=== PATIENT | female | born 1975 | race African-American/Black ===

== ENCOUNTER 2017-01-04 01:52 | Inpatient (IN) | payer MEDICARE, MEDICAID ==
[~2017-01-04] VITALS: Ht 144.8 cm; Wt 97.5 kg
[~2017-01-04 01:52] MED LIST: ATEN100T PO; CLON0.1T PO; INSU3INS6 SUBCUT; LORA0.5T2 PO; MINO2.5T19 PO; SIMV20TA6 PO
[2017-01-04] MEDS ORDERED: ASPIRIN 81MG TABLET PO STA (04:24)
[2017-01-04] MEDS ORDERED: DIPHENHYDRAMINE 50MG/ML VIAL IV ONE ×2 (04:30→09:00)
[2017-01-04 05:23] LABS: BASOPHILS % 0.5 % (0.0-2.0); EOSINOPHILS % 2.5 % (0.0-5.0); HEMOGLOBIN. 10.7 g/dL (12.0-16.0); LYMPHOCYTES % 15.2 % (20.0-50.0); MEAN CORPUSCULAR HEMOGLOBIN 28.7 pg (28.0-32.0); MEAN CORPUSCULAR VOLUME 88.7 fL (81.0-99.0); MEAN PLATELET VOLUME 8.1 fl (7.4-10.4); MONOCYTES % 4.1 % (2.0-8.0); NEUTROPHILS % 77.7 % (40.0-76.0); PLATELET 333 x1000/uL (130-400); RED BLOOD CELL COUNT 3.72 mill/uL (4.2-5.4); RED CELL DISTRIBUTION WIDTH 15.8 % (11.6-14.6)
[2017-01-04 05:34] LABS: PARTIAL THROMBOPLASTIN TIME 27.5 sec (23.4-31.0); PROTHROMBIN TIME 10.1 sec (9.4-11.6)
[2017-01-04 05:38] LABS: CARBON DIOXIDE 26 mEq/L (21-32); CHLORIDE 97 mEq/L (98-107); TROPONIN I < 0.02 ng/mL (0.00-0.04)
[2017-01-04] MEDS ORDERED: MORPHINE SULFATE 4 MG/ML CPJ (NOT FOR IM USE) IV ONE (06:15)
[2017-01-04] MEDS ORDERED: ONDANSETRON HCL 4MG/2ML VIAL IV ONE (06:15)
[2017-01-04] MEDS ORDERED: MORPHINE SULFATE 2 MG/ML CPJ (NOT FOR IM USE) IV ONE (09:00)
[2017-01-04] MEDS ORDERED: DIPHENHYDRAMINE 50MG/ML VIAL IV NR (10:30)
[2017-01-04 14:30] VITALS: BP 154/90
[2017-01-04 16:06] VITALS: BP 154/90
[2017-01-04] MEDS: ATENOLOL 100 MG TABLET PO SCH (16:15)
[2017-01-04] MEDS ORDERED: LORAZEPAM 0.5MG TABLET PO PRN (16:15)
[2017-01-04] MEDS: CLONIDINE 0.1MG TABLET PO SCH ×2 (16:15→17:41)
[2017-01-04] MEDS ORDERED: ONDANSETRON HCL 4MG/2ML VIAL IV PRN (16:15)
[2017-01-04] MEDS: MINOXIDIL 2.5MG TABLET PO SCH (16:15)
[2017-01-04] MEDS: MORPHINE SULFATE 4 MG/ML CPJ (NOT FOR IM USE) IV PRN ×2 (16:35→21:30)
[2017-01-04] MEDS ORDERED: DEXTROSE 50% WATER 50ML SYRINGE IV PRN (17:45)
[2017-01-04] MEDS: ENOXAPARIN 40MG/0.4ML SYR SUBCUT SCH ×2 (17:54→17:58)
[2017-01-04] MEDS: INSULIN LISPRO 100 UNITS/ML SUBCUT SCH ×2 (17:55→21:21)
[2017-01-04 20:00] VITALS: BP 150/55
[2017-01-04] MEDS: BLOOD SUGAR DIAGNOSTIC STRIP TEST SCH (21:21)
[2017-01-04] MEDS ORDERED: INSULIN DETEMIR UD 100 UNITS/ML SYR SUBCUT SCH (22:00)
[2017-01-05] VITALS: BP 145/55
[2017-01-05] MEDS: MORPHINE SULFATE 4 MG/ML CPJ (NOT FOR IM USE) IV PRN ×3 (02:47→10:47)
[2017-01-05] MEDS ORDERED: DIPHENHYDRAMINE 50MG/ML VIAL IV NR (03:30)
[2017-01-05 04:00] VITALS: BP 209/83
[2017-01-05 06:00] VITALS: BP 116/59
[2017-01-05] MEDS: CLONIDINE 0.1MG TABLET PO SCH ×3 (06:00→12:58)
[2017-01-05] MEDS: BLOOD SUGAR DIAGNOSTIC STRIP TEST SCH ×2 (06:35→12:22)
[2017-01-05 07:42] VITALS: BP 159/54
[2017-01-05] MEDS: MINOXIDIL 2.5MG TABLET PO SCH (08:52)
[2017-01-05] MEDS: ATENOLOL 100 MG TABLET PO SCH (08:52)
[2017-01-05] MEDS: INSULIN LISPRO 100 UNITS/ML SUBCUT SCH ×2 (08:56→12:58)
[2017-01-05] MEDS ORDERED: DIPHENHYDRAMINE 50MG/ML VIAL IV SCH (10:30)
[2017-01-05 12:08] VITALS: BP 118/45
== END 2017-01-05 15:20 | disposition home or self-care (01) | DRG 291 ==
LOC: ER 01:52 → EDBEDREQ 05:20 → 6WST 06:06 → ENRESERV 12:13 → EDBEDREQ 13:51 → ER 14:38
PROVIDERS: ADMIT Family Medicine; ATTEND Family Medicine
PROC: 5A1D00Z (ICD-10-PCS; principal; 2017-01-04)
DX: I13.2 Hypertensive heart and chronic kidney disease with heart failure and with stage 5 chronic kidney disease, or end stage renal disease (principal); N18.6 End stage renal disease; E11.21 Type 2 diabetes mellitus with diabetic nephropathy; F11.20 Opioid dependence, uncomplicated; E11.22 Type 2 diabetes mellitus with diabetic chronic kidney disease; D63.8 Anemia in other chronic diseases classified elsewhere; D72.829 Elevated white blood cell count, unspecified; E11.40 Type 2 diabetes mellitus with diabetic neuropathy, unspecified; E11.51 Type 2 diabetes mellitus with diabetic peripheral angiopathy without gangrene; H54.0 Blindness, both eyes; I50.9 Heart failure, unspecified; J45.909 Unspecified asthma, uncomplicated; E11.319 Type 2 diabetes mellitus with unspecified diabetic retinopathy without macular edema; Z99.2 Dependence on renal dialysis; Z89.511 Acquired absence of right leg below knee; Z89.512 Acquired absence of left leg below knee; Z91.19 Patient's noncompliance with other medical treatment and regimen; Z88.2 Allergy status to sulfonamides; Z88.8 Allergy status to other drugs, medicaments and biological substances; Z88.1 Allergy status to other antibiotic agents; Z88.0 Allergy status to penicillin; Z91.013 Allergy to seafood; Z79.4 Long term (current) use of insulin; Z79.899 Other long term (current) drug therapy; Z83.3 Family history of diabetes mellitus; Z82.49 Family history of ischemic heart disease and other diseases of the circulatory system
CPT/HCPCS: 36415; 71010; 80048; 82962; 83880; 84484; 85025; 85610; 85730; 93005; 96374; 96375; 96376; 99285; J1200; J1650; J1815; J2270; J2405; J7030

== ENCOUNTER 2017-07-08 05:50 | Emergency (ER) | payer MEDICARE, MEDICAID ==
[~2017-07-08] VITALS: Ht 144.8 cm; Wt 98.0 kg
[2017-07-08] MEDS ORDERED: MORPHINE SULFATE 4 MG/ML CPJ (NOT FOR IM USE) IV ONE (06:45)
[2017-07-08 08:02] LABS: BASOPHILS % 0.6 % (0.0-2.0); EOSINOPHILS % 3.3 % (0.0-5.0); HEMATOCRIT. 30.2 % (36.0-48.0); HEMOGLOBIN. 9.9 g/dL (12.0-16.0); LYMPHOCYTES % 14.2 % (20.0-50.0); MEAN CORPUSCULAR HEMOGLOBIN 28.7 pg (28.0-32.0); MEAN CORPUSCULAR VOLUME 87.7 fL (81.0-99.0); MONOCYTES % 4.5 % (2.0-8.0); NEUTROPHILS % 77.4 % (40.0-76.0); PLATELET 431 x1000/uL (130-400); RED BLOOD CELL COUNT 3.45 mill/uL (4.2-5.4); RED CELL DISTRIBUTION WIDTH 14.8 % (11.6-14.6)
[2017-07-08 08:09] LABS: CHLORIDE 99 mEq/L (98-107); INR 1.1; PROTHROMBIN TIME 11.2 sec (9.4-11.6)
[2017-07-08] MEDS ORDERED: DIPHENHYDRAMINE 50MG/ML VIAL IV ONE (09:00)
[2017-07-08 10:28] VITALS: BP 134/91
== END 2017-07-08 10:52 | disposition home or self-care (01) ==
LOC: ER 05:50
DX: R53.1 Weakness (principal); R68.83 Chills (without fever); M25.561 Pain in right knee; M25.562 Pain in left knee; J45.909 Unspecified asthma, uncomplicated; I13.2 Hypertensive heart and chronic kidney disease with heart failure and with stage 5 chronic kidney disease, or end stage renal disease; E11.22 Type 2 diabetes mellitus with diabetic chronic kidney disease; I50.9 Heart failure, unspecified; N18.6 End stage renal disease; Z89.511 Acquired absence of right leg below knee; Z89.512 Acquired absence of left leg below knee; Z99.2 Dependence on renal dialysis; Z88.0 Allergy status to penicillin; Z88.2 Allergy status to sulfonamides; Z88.1 Allergy status to other antibiotic agents; Z88.6 Allergy status to analgesic agent; Z88.8 Allergy status to other drugs, medicaments and biological substances; Z79.4 Long term (current) use of insulin
CPT/HCPCS: 36415; 71045; 80053; 83605; 85025; 85610; 87040; 93005; 96374; 96375; 99285; J1200; J2270

== ENCOUNTER 2017-08-17 07:10 | Emergency (ER) | payer MEDICARE, MEDICAID ==
[~2017-08-17] VITALS: Ht 152.4 cm; Wt 97.0 kg
[2017-08-17 07:58] LABS: BASOPHILS % 0.4 % (0.0-2.0); EOSINOPHILS % 6.8 % (0.0-5.0); HEMATOCRIT. 33.6 % (36.0-48.0); LYMPHOCYTES % 7.7 % (20.0-50.0); MEAN CORPUSCULAR HEMOGLOBIN 29.6 pg (28.0-32.0); MEAN CORPUSCULAR VOLUME 90.6 fL (81.0-99.0); MEAN PLATELET VOLUME 7.3 fl (7.4-10.4); MONOCYTES % 7.5 % (2.0-8.0); NEUTROPHILS % 77.6 % (40.0-76.0); PLATELET 337 x1000/uL (130-400); RED CELL DISTRIBUTION WIDTH 15.8 % (11.6-14.6)
[2017-08-17 07:59] LABS: CHLORIDE 97 mEq/L (98-107)
[2017-08-17 08:00] LABS: INR 1.1; PROTHROMBIN TIME 11.1 sec (9.4-11.6)
[2017-08-17] MEDS ORDERED: MORPHINE SULFATE 4 MG/ML CPJ (NOT FOR IM USE) IV ONE ×2 (08:15→10:30)
[2017-08-17] MEDS ORDERED: DIPHENHYDRAMINE 50MG/ML VIAL IV ONE (09:00)
[2017-08-17 12:24] VITALS: BP 100/48
== END 2017-08-17 12:32 | disposition home or self-care (01) ==
LOC: ER 07:29
DX: B34.9 Viral infection, unspecified (principal); E11.22 Type 2 diabetes mellitus with diabetic chronic kidney disease; I12.0 Hypertensive chronic kidney disease with stage 5 chronic kidney disease or end stage renal disease; N18.6 End stage renal disease; R00.0 Tachycardia, unspecified; Z99.2 Dependence on renal dialysis; Z88.6 Allergy status to analgesic agent; Z88.0 Allergy status to penicillin; Z88.2 Allergy status to sulfonamides; Z90.710 Acquired absence of both cervix and uterus; Z79.4 Long term (current) use of insulin; Z88.1 Allergy status to other antibiotic agents
CPT/HCPCS: 36415; 71045; 80053; 85025; 85610; 93005; 96374; 96375; 96376; 99285; J1200; J2270

== ENCOUNTER 2017-10-07 06:26 | Inpatient (IN) | payer MEDICARE, MEDICAID ==
[~2017-10-07] VITALS: Ht 149.9 cm; Wt 104.1 kg
[~2017-10-07 06:26] MED LIST changes: -ATEN100T PO; +CALC667T2 PO; +DIPH25CA83 PO; +FOLI0.8T23 PO; +HYDR4TAB4 PO; +INSLIS SUBCUT; +LANTUSUD SUBCUT; -LORA0.5T2 PO; +METO-396 PO; -MINO2.5T19 PO; -SIMV20TA6 PO
[2017-10-07] MEDS ORDERED: MORPHINE SULFATE 4 MG/ML CPJ (NOT FOR IM USE) IV STA (06:47)
[2017-10-07] MEDS ORDERED: ONDANSETRON HCL 4MG/2ML VIAL IV STA (06:47)
[2017-10-07] MEDS ORDERED: ASPIRIN 81MG TABLET PO ONE (07:00)
[2017-10-07 07:21] LABS: BASOPHILS % 0.4 % (0.0-2.0); EOSINOPHILS % 2.8 % (0.0-5.0); HEMATOCRIT. 29.6 % (36.0-48.0); HEMOGLOBIN. 9.7 g/dL (12.0-16.0); LYMPHOCYTES % 12.9 % (20.0-50.0); MEAN CORPUSCULAR HEMOGLOBIN 30.3 pg (28.0-32.0); MEAN CORPUSCULAR VOLUME 92.5 fL (81.0-99.0); MEAN PLATELET VOLUME 7.4 fl (7.4-10.4); MONOCYTES % 3.9 % (2.0-8.0); PLATELET 375 x1000/uL (130-400); RED CELL DISTRIBUTION WIDTH 16.6 % (11.6-14.6)
[2017-10-07 07:27] LABS: CHLORIDE 101 mEq/L (98-107)
[2017-10-07 07:30] LABS: PROTHROMBIN TIME 10.4 sec (9.4-11.6)
[2017-10-07] MEDS ORDERED: DIPHENHYDRAMINE 50MG CAPSULE PO ONE (08:00)
[2017-10-07] MEDS ORDERED: SODIUM BICARBONATE 8.4% 1 MEQ/ML 50ML SYR IV ONE (08:00)
[2017-10-07] MEDS ORDERED: INSULIN REGULAR (HUMULIN R) 300UNITS/3ML IV ONE (08:00)
[2017-10-07] MEDS ORDERED: DEXTROSE 50% WATER 50ML SYRINGE IV ONE (08:00)
[2017-10-07] MEDS ORDERED: CLONIDINE 0.1MG TABLET PO PRN (09:15)
[2017-10-07] MEDS ORDERED: GUAIFENESIN 200MG/10ML SUGAR FREE UDC PO PRN (09:15)
[2017-10-07] MEDS ORDERED: DOCUSATE SODIUM 100MG CAPSULE PO PRN (09:15)
[2017-10-07] MEDS ORDERED: MAGNESIUM/ALUMINUM HYDROXIDE/SIMETHICONE 30ML UDC PO PRN (09:15)
[2017-10-07] MEDS ORDERED: NA PHOS,M-B/NA PHOS,DI-BA ENEMA 118ML PR PRN (09:15)
[2017-10-07] MEDS ORDERED: LORAZEPAM 2MG/ML CPJ IV PRN (09:15)
[2017-10-07] MEDS ORDERED: IPRATROPIUM/ALBUTEROL 0.5-3(2.5)MG/3ML NEB INH PRN (09:15)
[2017-10-07 10:45] VITALS: BP 156/77
[2017-10-07 11:05] VITALS: BP 156/77
[2017-10-07] MEDS: ENOXAPARIN 40MG/0.4ML SYR SUBCUT SCH (11:30)
[2017-10-07 12:00] VITALS: BP 142/82
[2017-10-07] MEDS ORDERED: DEXTROSE 50% WATER 50ML SYRINGE IV PRN (12:30)
[2017-10-07] MEDS: HYDROMORPHONE HCL/PF 2MG/ML CPJ IV PRN ×2 (12:41→20:36)
[2017-10-07] MEDS: BLOOD SUGAR DIAGNOSTIC STRIP TEST SCH ×3 (13:11→21:41)
[2017-10-07] MEDS: INSULIN LISPRO 100 UNITS/ML SUBCUT SCH ×3 (13:42→21:33)
[2017-10-07] MEDS: LOSARTAN POTASSIUM 25 MG TABLET PO SCH (14:15)
[2017-10-07] MEDS ORDERED: DIPHENHYDRAMINE 25MG CAPSULE PO PRN (14:30)
[2017-10-07 16:00] VITALS: BP 121/39
[2017-10-07] MEDS: DIPHENHYDRAMINE 50MG/ML VIAL IV PRN ×2 (17:49→21:39)
[2017-10-07 20:00] VITALS: BP 151/86
[2017-10-07] MEDS: EPOETIN ALFA 10000UNITS/ML VIAL SUBCUT SCH (20:36)
[2017-10-07] MEDS: AMLODIPINE 5MG TABLET PO SCH (20:37)
[2017-10-07] MEDS: ATORVASTATIN CALCIUM 40MG TABLET PO SCH (20:58)
[2017-10-08] VITALS (28 sets, daily range): BP systolic 110–202; BP diastolic 52–118
[2017-10-08] MEDS: HYDROMORPHONE HCL/PF 2MG/ML CPJ IV PRN ×5 (01:37→22:05)
[2017-10-08] MEDS: DIPHENHYDRAMINE 50MG/ML VIAL IV PRN ×4 (03:28→23:42)
[2017-10-08] MEDS: ONDANSETRON HCL 4MG/2ML VIAL IV PRN ×3 (03:31→22:04)
[2017-10-08] MEDS: BLOOD SUGAR DIAGNOSTIC STRIP TEST SCH ×4 (05:53→21:00)
[2017-10-08] MEDS: INSULIN LISPRO 100 UNITS/ML SUBCUT SCH ×4 (05:53→22:05)
[2017-10-08 07:10] LABS: EOSINOPHILS % 4.4 % (0.0-5.0); HEMATOCRIT. 30.6 % (36.0-48.0); HEMOGLOBIN. 9.7 g/dL (12.0-16.0); LYMPHOCYTES % 13.7 % (20.0-50.0); MEAN CORPUSCULAR HEMOGLOBIN 29.5 pg (28.0-32.0); MEAN CORPUSCULAR VOLUME 92.8 fL (81.0-99.0); MEAN PLATELET VOLUME 7.9 fl (7.4-10.4); MONOCYTES % 6.4 % (2.0-8.0); NEUTROPHILS % 74.5 % (40.0-76.0); PLATELET 387 x1000/uL (130-400); RED CELL DISTRIBUTION WIDTH 16.7 % (11.6-14.6)
[2017-10-08 07:46] LABS: CHLORIDE 100 mEq/L (98-107)
[2017-10-08 07:53] LABS: LDL CHOLESTEROL 135 mg/dL (5-100)
[2017-10-08 07:55] LABS: HDL CHOLESTEROL 46 mg/dL (40-59); T4 FREE 0.77 ng/dL (0.76-1.46)
[2017-10-08] MEDS: LOSARTAN POTASSIUM 25 MG TABLET PO SCH (09:00)
[2017-10-08] MEDS: ENOXAPARIN 40MG/0.4ML SYR SUBCUT SCH (09:00)
[2017-10-08] MEDS: AMLODIPINE 5MG TABLET PO SCH ×2 (09:00→21:00)
[2017-10-08] MEDS ORDERED: SODIUM BICARBONATE 8.4% 1 MEQ/ML 50ML SYR IV NR (09:30)
[2017-10-08] MEDS ORDERED: INSULIN REGULAR (HUMULIN R) UD 100 UNITS/ML SYR IV NR (09:30)
[2017-10-08] MEDS ORDERED: DEXTROSE 50% WATER 50ML SYRINGE IV NR (09:30)
[2017-10-08] MEDS: ASPIRIN 81MG EC TABLET PO SCH (09:37)
[2017-10-08] MEDS ORDERED: SODIUM BICARBONATE 4% (2.4MEQ) 5ML VIAL IV ONE ×3 (10:04→12:47)
[2017-10-08] MEDS ORDERED: HEPARIN 1000 UNITS/ML 10ML ONE ×2 (10:04→12:47)
[2017-10-08] MEDS ORDERED: LIDOCAINE HCL/PF 1% 10 MG/ML 5ML VIAL ONE ×4 (10:04→12:47)
[2017-10-08] MEDS ORDERED: CLINDAMYCIN 600MG PREMIX 50 ML IV NR (11:40)
[2017-10-08] MEDS ORDERED: FENTANYL CITRATE/PF 50MCG/ML 2ML VIAL ONE (11:46)
[2017-10-08] MEDS ORDERED: FENTANYL CITRATE/PF 50MCG/ML 2ML VIAL IV ONE ×3 (12:00→13:30)
[2017-10-08] MEDS ORDERED: DIPHENHYDRAMINE 50MG/ML VIAL ONE (12:10)
[2017-10-08] MEDS ORDERED: DIPHENHYDRAMINE 50MG/ML VIAL IV NR (12:11)
[2017-10-08 16:29] LABS: INR 1.1; PARTIAL THROMBOPLASTIN TIME 39.5 sec (23.4-31.0); PROTHROMBIN TIME 11.4 sec (9.4-11.6)
[2017-10-08] MEDS ORDERED: HEPARIN SODIUM 1,000 UNIT/1ML VIAL IV NR (16:30)
[2017-10-08] MEDS: ATORVASTATIN CALCIUM 40MG TABLET PO SCH (22:04)
[2017-10-09] VITALS: BP 97/68
[2017-10-09] MEDS: HYDROMORPHONE HCL/PF 2MG/ML CPJ IV PRN ×6 (01:57→23:13)
[2017-10-09] MEDS: ONDANSETRON HCL 4MG/2ML VIAL IV PRN ×3 (03:00→16:42)
[2017-10-09 04:00] VITALS: BP 147/84
[2017-10-09] MEDS: MAGNESIUM/ALUMINUM HYDROXIDE/SIMETHICONE 30ML UDC PO PRN ×2 (05:03→21:01)
[2017-10-09] MEDS: DIPHENHYDRAMINE 50MG/ML VIAL IV PRN ×3 (05:49→22:01)
[2017-10-09 07:19] LABS: BASOPHILS % 0.5 % (0.0-2.0); EOSINOPHILS % 3.7 % (0.0-5.0); HEMATOCRIT. 28.3 % (36.0-48.0); LYMPHOCYTES % 7.4 % (20.0-50.0); MEAN CORPUSCULAR HEMOGLOBIN 29.5 pg (28.0-32.0); MEAN CORPUSCULAR VOLUME 92.3 fL (81.0-99.0); MONOCYTES % 5.1 % (2.0-8.0); NEUTROPHILS % 83.3 % (40.0-76.0); PLATELET 392 x1000/uL (130-400); RED BLOOD CELL COUNT 3.07 mill/uL (4.2-5.4)
[2017-10-09] MEDS ORDERED: REGADENOSON 0.4 MG/5 ML IV ONE (07:30)
[2017-10-09] MEDS: INSULIN LISPRO 100 UNITS/ML SUBCUT SCH ×5 (08:10→21:00)
[2017-10-09] MEDS: BLOOD SUGAR DIAGNOSTIC STRIP TEST SCH ×4 (08:21→21:09)
[2017-10-09] MEDS: LOSARTAN POTASSIUM 25 MG TABLET PO SCH (08:45)
[2017-10-09] MEDS: ENOXAPARIN 30MG/0.3ML SYR SUBCUT SCH (08:45)
[2017-10-09] MEDS: ASPIRIN 81MG EC TABLET PO SCH (08:45)
[2017-10-09] MEDS: AMLODIPINE 5MG TABLET PO SCH ×2 (08:45→21:18)
[2017-10-09 09:00] VITALS: BP 129/74
[2017-10-09] MEDS ORDERED: DIPHENHYDRAMINE 50MG/ML VIAL IV SCH (10:00)
[2017-10-09] MEDS: PANTOPRAZOLE SODIUM 40 MG/VIAL IV SCH (10:17)
[2017-10-09 12:29] VITALS: BP 117/96
[2017-10-09 17:20] VITALS: BP 116/55
[2017-10-09 20:00] VITALS: BP 116/46
[2017-10-09] MEDS: EPOETIN ALFA 10000UNITS/ML VIAL SUBCUT SCH (21:18)
[2017-10-09] MEDS: ATORVASTATIN CALCIUM 40MG TABLET PO SCH (21:18)
[2017-10-10] VITALS: BP 151/72
[2017-10-10] MEDS: HYDROMORPHONE HCL/PF 2MG/ML CPJ IV PRN ×3 (03:17→19:22)
[2017-10-10 04:00] VITALS: BP 139/61
[2017-10-10] MEDS: DIPHENHYDRAMINE 50MG/ML VIAL IV PRN ×2 (05:11→21:27)
[2017-10-10] MEDS: BLOOD SUGAR DIAGNOSTIC STRIP TEST SCH ×4 (06:40→21:39)
[2017-10-10 07:24] LABS: EOSINOPHILS % 5.2 % (0.0-5.0); HEMATOCRIT. 32.2 % (36.0-48.0); HEMOGLOBIN. 10.4 g/dL (12.0-16.0); MEAN CORPUSCULAR VOLUME 92.9 fL (81.0-99.0); MEAN PLATELET VOLUME 7.5 fl (7.4-10.4); MONOCYTES % 6.1 % (2.0-8.0); NEUTROPHILS % 68.7 % (40.0-76.0); PLATELET 409 x1000/uL (130-400); RED BLOOD CELL COUNT 3.47 mill/uL (4.2-5.4)
[2017-10-10 08:00] VITALS: BP 146/76
[2017-10-10] MEDS: INSULIN LISPRO 100 UNITS/ML SUBCUT SCH ×4 (08:10→21:44)
[2017-10-10] MEDS: LOSARTAN POTASSIUM 25 MG TABLET PO SCH (09:53)
[2017-10-10] MEDS: ASPIRIN 81MG EC TABLET PO SCH (09:53)
[2017-10-10] MEDS: AMLODIPINE 5MG TABLET PO SCH ×2 (09:53→21:27)
[2017-10-10] MEDS: PANTOPRAZOLE SODIUM 40 MG/VIAL IV SCH (09:53)
[2017-10-10] MEDS: ENOXAPARIN 30MG/0.3ML SYR SUBCUT SCH (09:54)
[2017-10-10 12:00] VITALS: BP 127/82
[2017-10-10 16:00] VITALS: BP 118/79
[2017-10-10 20:00] VITALS: BP 124/103
[2017-10-10] MEDS: ATORVASTATIN CALCIUM 40MG TABLET PO SCH (21:26)
[2017-10-11] VITALS (7 sets, daily range): BP systolic 103–161; BP diastolic 39–82
[2017-10-11] MEDS: HYDROMORPHONE HCL/PF 2MG/ML CPJ IV PRN ×4 (00:17→14:07)
[2017-10-11] MEDS: DIPHENHYDRAMINE 50MG/ML VIAL IV PRN (04:02)
[2017-10-11] MEDS: BLOOD SUGAR DIAGNOSTIC STRIP TEST SCH ×3 (06:42→17:45)
[2017-10-11] MEDS: ASPIRIN 81MG EC TABLET PO SCH (07:46)
[2017-10-11] MEDS: INSULIN LISPRO 100 UNITS/ML SUBCUT SCH ×3 (07:48→17:46)
[2017-10-11] MEDS ORDERED: DIPHENHYDRAMINE 50MG/ML VIAL IV SCH (08:30)
[2017-10-11] MEDS: LOSARTAN POTASSIUM 25 MG TABLET PO SCH (09:00)
[2017-10-11] MEDS ORDERED: FAMOTIDINE 20MG TABLET PO SCH (09:00)
[2017-10-11] MEDS: AMLODIPINE 5MG TABLET PO SCH (09:00)
[2017-10-11 09:25] LABS: BASOPHILS % 0.9 % (0.0-2.0); EOSINOPHILS % 5.8 % (0.0-5.0); HEMATOCRIT. 27.6 % (36.0-48.0); HEMOGLOBIN. 8.8 g/dL (12.0-16.0); MEAN CORPUSCULAR HEMOGLOBIN 29.6 pg (28.0-32.0); MEAN PLATELET VOLUME 7.2 fl (7.4-10.4); MONOCYTES % 8.4 % (2.0-8.0); NEUTROPHILS % 68.9 % (40.0-76.0); PLATELET 394 x1000/uL (130-400); RED BLOOD CELL COUNT 2.97 mill/uL (4.2-5.4); RED CELL DISTRIBUTION WIDTH 16.6 % (11.6-14.6)
== END 2017-10-11 17:48 | disposition home or self-care (01) | DRG 314 ==
LOC: ER 06:26 → EDBEDREQ 10:01 → EDBEDREQTM 10:01 → ENRESERV 10:01 → 7WST 10:42
PROVIDERS: ADMIT Internal Medicine; ATTEND Internal Medicine
PROC: 05H833Z Insertion of Infusion Device into Left Axillary Vein, Percutaneous Approach (ICD-10-PCS; principal; 2017-10-08)
PROC: B54NZZA Ultrasonography of Left Upper Extremity Veins, Guidance (ICD-10-PCS; 2017-10-08)
PROC: B51N1ZA Fluoroscopy of Left Upper Extremity Veins using Low Osmolar Contrast, Guidance (ICD-10-PCS; 2017-10-08)
PROC: 02PYX3Z Removal of Infusion Device from Great Vessel, External Approach (ICD-10-PCS; 2017-10-08)
PROC: 02HV33Z Insertion of Infusion Device into Superior Vena Cava, Percutaneous Approach (ICD-10-PCS; 2017-10-08)
PROC: B5181ZA Fluoroscopy of Superior Vena Cava using Low Osmolar Contrast, Guidance (ICD-10-PCS; 2017-10-08)
PROC: B548ZZA Ultrasonography of Superior Vena Cava, Guidance (ICD-10-PCS; 2017-10-08)
PROC: 5A1D70Z Performance of Urinary Filtration, Intermittent, Less than 6 Hours Per Day (ICD-10-PCS; 2017-10-08)
PROC: 5A1D70Z Performance of Urinary Filtration, Intermittent, Less than 6 Hours Per Day (ICD-10-PCS; 2017-10-09)
PROC: 5A1D70Z Performance of Urinary Filtration, Intermittent, Less than 6 Hours Per Day (ICD-10-PCS; 2017-10-11)
DX: T82.49XA Other complication of vascular dialysis catheter, initial encounter (principal); N18.6 End stage renal disease; R65.10 Systemic inflammatory response syndrome (SIRS) of non-infectious origin without acute organ dysfunction; I13.2 Hypertensive heart and chronic kidney disease with heart failure and with stage 5 chronic kidney disease, or end stage renal disease; E46 Unspecified protein-calorie malnutrition; E87.1 Hypo-osmolality and hyponatremia; E87.2 Acidosis; Z68.42 Body mass index [BMI] 45.0-49.9, adult; I25.10 Atherosclerotic heart disease of native coronary artery without angina pectoris; E11.22 Type 2 diabetes mellitus with diabetic chronic kidney disease; E11.51 Type 2 diabetes mellitus with diabetic peripheral angiopathy without gangrene; I50.9 Heart failure, unspecified; D63.1 Anemia in chronic kidney disease; E87.5 Hyperkalemia; Y84.1 Kidney dialysis as the cause of abnormal reaction of the patient, or of later complication, without mention of misadventure at the time of the procedure; E11.319 Type 2 diabetes mellitus with unspecified diabetic retinopathy without macular edema; E11.40 Type 2 diabetes mellitus with diabetic neuropathy, unspecified; E78.00 Pure hypercholesterolemia, unspecified; E78.5 Hyperlipidemia, unspecified; H54.8 Legal blindness, as defined in USA; J44.9 Chronic obstructive pulmonary disease, unspecified; K21.9 Gastro-esophageal reflux disease without esophagitis; Z79.4 Long term (current) use of insulin; Z82.49 Family history of ischemic heart disease and other diseases of the circulatory system; Z83.3 Family history of diabetes mellitus; Z89.511 Acquired absence of right leg below knee; Z89.512 Acquired absence of left leg below knee; Z88.2 Allergy status to sulfonamides; Z99.2 Dependence on renal dialysis; Z88.8 Allergy status to other drugs, medicaments and biological substances; Z88.6 Allergy status to analgesic agent; Z88.1 Allergy status to other antibiotic agents; Z88.0 Allergy status to penicillin; Y92.89 Other specified places as the place of occurrence of the external cause; Z91.013 Allergy to seafood; Z79.899 Other long term (current) drug therapy
CPT/HCPCS: 36415; 36558; 36569; 36581; 71045; 76937; 77001; 80048; 80053; 80061; 82962; 83735; 83880; 84132; 84439; 84443; 84484; 85025; 85610; 85730; 93005; 96374; 96375; 99285; C1725; C1750; C1769; C1887; C9113; J0885; J1170; J1200; J1644; J1650; J1815; J2270; J2405; J3010; J3490; J7030; J7040; L8514; Q0163

== ENCOUNTER 2017-12-09 05:29 | Inpatient (IN) | payer MEDICARE, MEDICAID ==
[~2017-12-09] VITALS: Ht 152.4 cm; Wt 99.8 kg
[~2017-12-09 05:29] MED LIST changes: -CLON0.1T PO; +CLOP75TA16 PO; -FOLI0.8T23 PO; -INSU3INS6 SUBCUT; +PANT40SU PO
[2017-12-09] MEDS ORDERED: DIPHENHYDRAMINE 50MG/ML VIAL IV ONE ×2 (06:30→16:45)
[2017-12-09] MEDS ORDERED: MORPHINE SULFATE 4 MG/ML CPJ (NOT FOR IM USE) IV ONE (06:30)
[2017-12-09 07:24] LABS: BASOPHILS % 0.4 % (0.0-2.0); EOSINOPHILS % 2.1 % (0.0-5.0); HEMATOCRIT. 26.2 % (36.0-48.0); HEMOGLOBIN. 8.6 g/dL (12.0-16.0); LYMPHOCYTES % 8.8 % (20.0-50.0); MEAN CORPUSCULAR HEMOGLOBIN 29.3 pg (28.0-32.0); MEAN CORPUSCULAR VOLUME 89.5 fL (81.0-99.0); MONOCYTES % 4.5 % (2.0-8.0); NEUTROPHILS % 84.2 % (40.0-76.0); PLATELET 416 x1000/uL (130-400); RED BLOOD CELL COUNT 2.93 mill/uL (4.2-5.4); RED CELL DISTRIBUTION WIDTH 16.2 % (11.6-14.6)
[2017-12-09 07:31] LABS: CHLORIDE 98 mEq/L (98-107)
[2017-12-09 07:32] LABS: PROTHROMBIN TIME 10.1 sec (9.1-11.1)
[2017-12-09] MEDS ORDERED: ASPIRIN 325MG EC TABLET PO ONE (08:15)
[2017-12-09 11:32] VITALS: BP 136/81
[2017-12-09] MEDS ORDERED: ONDANSETRON HCL 4MG/2ML VIAL IV PRN (11:45)
[2017-12-09] MEDS ORDERED: DOCUSATE SODIUM 100MG CAPSULE PO PRN (11:45)
[2017-12-09] MEDS ORDERED: IPRATROPIUM/ALBUTEROL 0.5-3(2.5)MG/3ML NEB INH PRN (11:45)
[2017-12-09 12:00] VITALS: BP 161/85
[2017-12-09] MEDS: FOLIC ACID/VITAMIN B COMP W-C TABLET PO SCH (12:06)
[2017-12-09] MEDS: CALCIUM ACETATE 667MG CAPSULE PO SCH ×4 (12:06→21:35)
[2017-12-09] MEDS: HYDROMORPHONE HCL/PF 2MG/ML CPJ IV PRN ×3 (12:37→23:36)
[2017-12-09] MEDS ORDERED: REGADENOSON 0.4 MG/5 ML IV ONE (13:30)
[2017-12-09] MEDS: DIPHENHYDRAMINE 50MG/ML VIAL IV PRN ×2 (13:53→17:49)
[2017-12-09] MEDS: INSULIN GLARGINE UD 100 UNITS/ML SYR SUBCUT SCH (13:57)
[2017-12-09] MEDS ORDERED: ALTEPLASE 2MG/VIAL ITC NR (15:30)
[2017-12-09 16:00] VITALS: BP 103/36
[2017-12-09] MEDS ORDERED: DEXTROSE 50% WATER 50ML SYRINGE IV PRN (16:45)
[2017-12-09] MEDS: BLOOD SUGAR DIAGNOSTIC STRIP TEST SCH ×2 (16:50→21:36)
[2017-12-09] MEDS ORDERED: DIPHENHYDRAMINE 50MG/ML VIAL IV PRN (17:00)
[2017-12-09 17:03] LABS: CREATINE KINASE 79 IU/L (26-192)
[2017-12-09 17:05] LABS: CREATINE KINASE MB FRACTION 1.3 ng/mL (0.5-3.6)
[2017-12-09] MEDS: INSULIN LISPRO 100 UNITS/ML SUBCUT SCH ×2 (17:54→21:41)
[2017-12-09 20:00] VITALS: BP 128/73
[2017-12-09] MEDS: METOPROLOL TARTRATE 25MG TABLET PO SCH (21:36)
[2017-12-10] VITALS: BP 130/76
[2017-12-10] MEDS: DIPHENHYDRAMINE 50MG/ML VIAL IV PRN ×3 (02:06→14:42)
[2017-12-10 04:00] VITALS: BP 119/54
[2017-12-10] MEDS: HYDROMORPHONE HCL/PF 2MG/ML CPJ IV PRN ×3 (06:00→19:00)
[2017-12-10] MEDS: BLOOD SUGAR DIAGNOSTIC STRIP TEST SCH ×4 (06:08→21:33)
[2017-12-10] MEDS: INSULIN LISPRO 100 UNITS/ML SUBCUT SCH ×5 (07:37→21:33)
[2017-12-10] MEDS: CALCIUM ACETATE 667MG CAPSULE PO SCH ×4 (07:37→21:35)
[2017-12-10 08:00] VITALS: BP 122/68
[2017-12-10] MEDS: LORAZEPAM 2MG/ML CPJ IV PRN (08:42)
[2017-12-10] MEDS: METOPROLOL TARTRATE 25MG TABLET PO SCH ×2 (09:00→21:35)
[2017-12-10] MEDS: FOLIC ACID/VITAMIN B COMP W-C TABLET PO SCH (09:00)
[2017-12-10] MEDS ORDERED: REGADENOSON 0.4 MG/5 ML IV ONE (09:31)
[2017-12-10] MEDS: INSULIN GLARGINE UD 100 UNITS/ML SYR SUBCUT SCH (10:00)
[2017-12-10 10:17] LABS: BASOPHILS % 0.7 % (0.0-2.0); EOSINOPHILS % 7.2 % (0.0-5.0); HEMATOCRIT. 25.8 % (36.0-48.0); HEMOGLOBIN. 8.4 g/dL (12.0-16.0); LYMPHOCYTES % 15.7 % (20.0-50.0); MEAN CORPUSCULAR HEMOGLOBIN 29.1 pg (28.0-32.0); MEAN CORPUSCULAR VOLUME 89.9 fL (81.0-99.0); MEAN PLATELET VOLUME 8.2 fl (7.4-10.4); MONOCYTES % 5.6 % (2.0-8.0); NEUTROPHILS % 70.8 % (40.0-76.0); PLATELET 396 x1000/uL (130-400); RED BLOOD CELL COUNT 2.87 mill/uL (4.2-5.4); RED CELL DISTRIBUTION WIDTH 16.1 % (11.6-14.6)
[2017-12-10] MEDS ORDERED: VANCOMYCIN 2,000 MG in DEXT 5% WATER 500 ML IV SCH (10:30)
[2017-12-10 11:18] LABS: CHLORIDE 94 mEq/L (98-107)
[2017-12-10 12:00] VITALS: BP 146/83
[2017-12-10 16:00] VITALS: BP 161/72
[2017-12-10] MEDS ORDERED: DIPHENHYDRAMINE 50MG/ML VIAL IV PRN (17:45)
[2017-12-10 20:00] VITALS: BP 119/83
[2017-12-11] VITALS (8 sets, daily range): BP systolic 96–146; BP diastolic 52–82
[2017-12-11] MEDS: HYDROMORPHONE HCL/PF 2MG/ML CPJ IV PRN ×4 (01:18→22:55)
[2017-12-11] MEDS: BLOOD SUGAR DIAGNOSTIC STRIP TEST SCH ×4 (07:29→19:56)
[2017-12-11 07:39] LABS: BASOPHILS % 0.7 % (0.0-2.0); EOSINOPHILS % 9.8 % (0.0-5.0); HEMATOCRIT. 24.6 % (36.0-48.0); HEMOGLOBIN. 7.9 g/dL (12.0-16.0); MEAN CORPUSCULAR HEMOGLOBIN 28.9 pg (28.0-32.0); MONOCYTES % 5.9 % (2.0-8.0); NEUTROPHILS % 69.6 % (40.0-76.0); PLATELET 344 x1000/uL (130-400); RED BLOOD CELL COUNT 2.73 mill/uL (4.2-5.4); RED CELL DISTRIBUTION WIDTH 16.4 % (11.6-14.6)
[2017-12-11] MEDS: CALCIUM ACETATE 667MG CAPSULE PO SCH ×4 (07:55→19:58)
[2017-12-11] MEDS: INSULIN LISPRO 100 UNITS/ML SUBCUT SCH ×7 (08:29→20:04)
[2017-12-11] MEDS: METOPROLOL TARTRATE 25MG TABLET PO SCH ×2 (09:00→19:56)
[2017-12-11] MEDS: FOLIC ACID/VITAMIN B COMP W-C TABLET PO SCH (09:12)
[2017-12-11] MEDS: INSULIN GLARGINE UD 100 UNITS/ML SYR SUBCUT SCH (11:18)
[2017-12-11] MEDS: LORAZEPAM 2MG/ML CPJ IV PRN (15:21)
[2017-12-11] MEDS: DIPHENHYDRAMINE 50MG/ML VIAL IV PRN ×2 (17:05→23:24)
[2017-12-11] MEDS: MORPHINE SULFATE 4 MG/ML CPJ (NOT FOR IM USE) IV PRN (19:58)
[2017-12-11] MEDS ORDERED: EPOETIN ALFA 10000UNITS/ML VIAL SUBCUT SCH (21:00)
[2017-12-12] VITALS (8 sets, daily range): BP systolic 100–147; BP diastolic 52–84
[2017-12-12] MEDS: HYDROMORPHONE HCL/PF 2MG/ML CPJ IV PRN ×3 (04:59→17:05)
[2017-12-12] MEDS: BLOOD SUGAR DIAGNOSTIC STRIP TEST SCH ×4 (05:55→21:00)
[2017-12-12] MEDS: DIPHENHYDRAMINE 50MG/ML VIAL IV PRN ×4 (06:38→18:47)
[2017-12-12] MEDS: INSULIN LISPRO 100 UNITS/ML SUBCUT SCH ×7 (06:40→22:10)
[2017-12-12 06:51] LABS: BASOPHILS % 0.7 % (0.0-2.0); HEMATOCRIT. 24.8 % (36.0-48.0); HEMOGLOBIN. 8.1 g/dL (12.0-16.0); LYMPHOCYTES % 16.5 % (20.0-50.0); MEAN CORPUSCULAR HEMOGLOBIN 29.6 pg (28.0-32.0); MEAN CORPUSCULAR VOLUME 91.1 fL (81.0-99.0); MONOCYTES % 7.5 % (2.0-8.0); NEUTROPHILS % 64.3 % (40.0-76.0); PLATELET 328 x1000/uL (130-400); RED BLOOD CELL COUNT 2.73 mill/uL (4.2-5.4)
[2017-12-12] MEDS: CALCIUM ACETATE 667MG CAPSULE PO SCH ×4 (08:03→21:59)
[2017-12-12] MEDS: METOPROLOL TARTRATE 25MG TABLET PO SCH ×3 (09:00→21:00)
[2017-12-12] MEDS: FOLIC ACID/VITAMIN B COMP W-C TABLET PO SCH (09:46)
[2017-12-12] MEDS: INSULIN GLARGINE UD 100 UNITS/ML SYR SUBCUT SCH (10:21)
[2017-12-12] MEDS ORDERED: HEPARIN SODIUM 1,000 UNIT/1ML VIAL IV NR (13:15)
[2017-12-12] MEDS: MORPHINE SULFATE 4 MG/ML CPJ (NOT FOR IM USE) IV PRN ×2 (14:08→21:58)
[2017-12-12] MEDS ORDERED: MAGNESIUM/ALUMINUM HYDROXIDE/SIMETHICONE 30ML UDC PO PRN (23:00)
== END 2017-12-12 23:27 | disposition home or self-care (01) | DRG 314 ==
LOC: ER 05:29 → 7WST 08:08 → EDBEDREQ 08:11 → ENRESERV 09:58
PROVIDERS: ADMIT Internal Medicine; ATTEND Internal Medicine
PROC: 5A1D70Z Performance of Urinary Filtration, Intermittent, Less than 6 Hours Per Day (ICD-10-PCS; principal; 2017-12-09)
PROC: 3E03317 Introduction of Other Thrombolytic into Peripheral Vein, Percutaneous Approach (ICD-10-PCS; 2017-12-09)
PROC: 5A1D70Z Performance of Urinary Filtration, Intermittent, Less than 6 Hours Per Day (ICD-10-PCS; 2017-12-11)
PROC: 5A1D70Z Performance of Urinary Filtration, Intermittent, Less than 6 Hours Per Day (ICD-10-PCS; 2017-12-12)
DX: T82.41XA Breakdown (mechanical) of vascular dialysis catheter, initial encounter (principal); N18.6 End stage renal disease; A41.9 Sepsis, unspecified organism; T80.211A Bloodstream infection due to central venous catheter, initial encounter; I13.2 Hypertensive heart and chronic kidney disease with heart failure and with stage 5 chronic kidney disease, or end stage renal disease; I50.9 Heart failure, unspecified; E11.22 Type 2 diabetes mellitus with diabetic chronic kidney disease; E78.5 Hyperlipidemia, unspecified; H54.8 Legal blindness, as defined in USA; E11.40 Type 2 diabetes mellitus with diabetic neuropathy, unspecified; R07.89 Other chest pain; E11.51 Type 2 diabetes mellitus with diabetic peripheral angiopathy without gangrene; K21.9 Gastro-esophageal reflux disease without esophagitis; D63.1 Anemia in chronic kidney disease; Y84.1 Kidney dialysis as the cause of abnormal reaction of the patient, or of later complication, without mention of misadventure at the time of the procedure; E11.319 Type 2 diabetes mellitus with unspecified diabetic retinopathy without macular edema; E11.65 Type 2 diabetes mellitus with hyperglycemia; Z79.4 Long term (current) use of insulin; Z79.82 Long term (current) use of aspirin; Z82.49 Family history of ischemic heart disease and other diseases of the circulatory system; Z89.511 Acquired absence of right leg below knee; Z89.512 Acquired absence of left leg below knee; Z83.3 Family history of diabetes mellitus; Z88.8 Allergy status to other drugs, medicaments and biological substances; Z88.2 Allergy status to sulfonamides; Z99.2 Dependence on renal dialysis; Z88.0 Allergy status to penicillin; Z88.1 Allergy status to other antibiotic agents; Z88.6 Allergy status to analgesic agent; Z79.899 Other long term (current) drug therapy; Y92.89 Other specified places as the place of occurrence of the external cause
CPT/HCPCS: 36415; 71045; 73721; 80048; 80053; 80202; 82550; 82553; 82962; 83735; 83880; 84100; 84484; 85025; 85610; 87040; 93005; 96374; 96375; 99285; A9500; J0885; J1170; J1200; J1644; J1815; J2060; J2270; J2785; J2997; J3370; J7030; J7060

== ENCOUNTER 2017-12-15 00:04 | Inpatient (IN) | payer MEDICARE, MEDICAID ==
[2017-12-15] VITALS (17 sets, daily range): BP systolic 107–178; BP diastolic 56–90
[~2017-12-15] VITALS: Ht 142.2 cm; Wt 90.7 kg
[2017-12-15] MEDS ORDERED: ONDANSETRON HCL 4MG/2ML VIAL IV STA (00:29)
[2017-12-15] MEDS ORDERED: MORPHINE SULFATE 4 MG/ML CPJ (NOT FOR IM USE) IV STA (00:29)
[2017-12-15 02:12] LABS: BASOPHILS % 0.8 % (0.0-2.0); EOSINOPHILS % 6.4 % (0.0-5.0); HEMOGLOBIN. 7.8 g/dL (12.0-16.0); LYMPHOCYTES % 14.2 % (20.0-50.0); MEAN CORPUSCULAR HEMOGLOBIN 29.6 pg (28.0-32.0); MEAN CORPUSCULAR VOLUME 90.5 fL (81.0-99.0); MEAN PLATELET VOLUME 7.9 fl (7.4-10.4); MONOCYTES % 5.2 % (2.0-8.0); NEUTROPHILS % 73.4 % (40.0-76.0); PLATELET 281 x1000/uL (130-400); RED BLOOD CELL COUNT 2.65 mill/uL (4.2-5.4); RED CELL DISTRIBUTION WIDTH 16.9 % (11.6-14.6)
[2017-12-15 02:20] LABS: PARTIAL THROMBOPLASTIN TIME 27.8 sec (23.4-31.0)
[2017-12-15 02:23] LABS: PHOSPHORUS 1.9 mg/dL (2.5-4.9)
[2017-12-15 02:29] LABS: HCG SCREEN NEGATIVE
[2017-12-15] MEDS: MORPHINE SULFATE 4 MG/ML CPJ (NOT FOR IM USE) IV PRN ×3 (07:42→21:07)
[2017-12-15] MEDS ORDERED: DIPHENHYDRAMINE 50MG/ML VIAL IV PRN (07:45)
[2017-12-15] MEDS ORDERED: CLINDAMYCIN 600MG PREMIX 50 ML IV NR (10:30)
[2017-12-15] MEDS ORDERED: DOCUSATE SODIUM 100MG CAPSULE PO PRN (12:45)
[2017-12-15] MEDS ORDERED: ACETAMINOPHEN 325MG TABLET PO PRN (12:45)
[2017-12-15] MEDS ORDERED: GUAIFENESIN 200MG/10ML SUGAR FREE UDC PO PRN (12:45)
[2017-12-15] MEDS ORDERED: MORPHINE SULFATE 2 MG/ML CPJ (NOT FOR IM USE) IV PRN (12:45)
[2017-12-15] MEDS ORDERED: HYDROCODONE/ACETAMINOPHEN 5/325MG TABLET PO PRN (12:45)
[2017-12-15] MEDS ORDERED: LIDOCAINE HCL 1% 20ML VIAL (Pyxis) INJ ONE (13:03)
[2017-12-15] MEDS ORDERED: HEPARIN 1000 UNITS/ML 10ML ONE (13:03)
[2017-12-15] MEDS ORDERED: SODIUM BICARBONATE 4% (2.4MEQ) 5ML VIAL IV ONE (13:03)
[2017-12-15] MEDS ORDERED: FENTANYL CITRATE/PF 50MCG/ML 2ML VIAL ONE (13:33)
[2017-12-15] MEDS ORDERED: FENTANYL CITRATE/PF 50MCG/ML 2ML VIAL IV ONE (14:00)
[2017-12-15] MEDS: DIPHENHYDRAMINE 50MG/ML VIAL IV PRN ×2 (15:51→20:41)
[2017-12-15 17:56] LABS: CREATINE KINASE MB FRACTION 2.1 ng/mL (0.5-3.6)
[2017-12-15] MEDS: METOPROLOL TARTRATE 25MG TABLET PO SCH (20:27)
[2017-12-15] MEDS: EPOETIN ALFA 10000UNITS/ML VIAL SUBCUT SCH (22:38)
[2017-12-16] VITALS: BP 179/79
[2017-12-16] MEDS: BLOOD SUGAR DIAGNOSTIC STRIP TEST SCH ×5 (00:43→20:58)
[2017-12-16] MEDS ORDERED: DEXTROSE 50% WATER 50ML SYRINGE IV PRN (00:45)
[2017-12-16] MEDS: DIPHENHYDRAMINE 50MG/ML VIAL IV PRN ×5 (00:50→18:25)
[2017-12-16] MEDS: INSULIN LISPRO 100 UNITS/ML SUBCUT SCH ×5 (00:55→21:23)
[2017-12-16] MEDS: MORPHINE SULFATE 4 MG/ML CPJ (NOT FOR IM USE) IV PRN ×2 (02:08→06:21)
[2017-12-16] MEDS: INSULIN GLARGINE UD 100 UNITS/ML SYR SUBCUT SCH ×2 (03:23→23:14)
[2017-12-16 04:00] VITALS: BP 160/68
[2017-12-16 08:00] VITALS: BP 155/58
[2017-12-16] MEDS: ASPIRIN 81MG EC TABLET PO SCH (08:16)
[2017-12-16] MEDS: AMLODIPINE 10MG TABLET PO SCH (08:36)
[2017-12-16] MEDS: METOPROLOL TARTRATE 25MG TABLET PO SCH ×2 (08:36→20:49)
[2017-12-16] MEDS: HYDROMORPHONE HCL/PF 2MG/ML CPJ IV PRN ×3 (10:10→23:13)
[2017-12-16 12:43] VITALS: BP 144/85
[2017-12-16 15:21] LABS: BASOPHILS % 0.6 % (0.0-2.0); EOSINOPHILS % 7.9 % (0.0-5.0); HEMATOCRIT. 27.3 % (36.0-48.0); HEMOGLOBIN. 8.8 g/dL (12.0-16.0); LYMPHOCYTES % 14.4 % (20.0-50.0); MEAN CORPUSCULAR HEMOGLOBIN 29.1 pg (28.0-32.0); MEAN CORPUSCULAR VOLUME 90.5 fL (81.0-99.0); MEAN PLATELET VOLUME 8.2 fl (7.4-10.4); MONOCYTES % 3.5 % (2.0-8.0); NEUTROPHILS % 73.6 % (40.0-76.0); PLATELET 310 x1000/uL (130-400); RED BLOOD CELL COUNT 3.02 mill/uL (4.2-5.4); RED CELL DISTRIBUTION WIDTH 17.7 % (11.6-14.6)
[2017-12-16 15:46] LABS: CREATINE KINASE MB FRACTION 2.2 ng/mL (0.5-3.6)
[2017-12-16 16:25] VITALS: BP 150/61
[2017-12-16] MEDS ORDERED: HEPARIN SODIUM 1,000 UNIT/1ML VIAL IV ONE (16:45)
[2017-12-16] MEDS ORDERED: CALCIUM GLUCONATE 1,000 MG in DEXT 5% WATER 90 ML IV STA (17:36)
[2017-12-16] MEDS ORDERED: CALCIUM GLUCONATE 1000 MG in DEXTROSE 5% WATER 100 ML IV NR (17:45)
[2017-12-16] MEDS ORDERED: SODIUM BICARBONATE 8.4% 1 MEQ/ML 50ML SYR IV NR (18:00)
[2017-12-16] MEDS ORDERED: DEXTROSE 50% WATER 50ML SYRINGE IV NR (18:00)
[2017-12-16] MEDS ORDERED: INSULIN REGULAR (HUMULIN R) UD 100 UNITS/ML SYR IV NR (18:15)
[2017-12-16] MEDS ORDERED: DIPHENHYDRAMINE 50MG/ML VIAL IV SCH (19:30)
[2017-12-16 20:00] VITALS: BP 103/55
[2017-12-17] VITALS: BP 154/74
[2017-12-17] MEDS: DIPHENHYDRAMINE 50MG/ML VIAL IV PRN ×4 (02:31→20:17)
[2017-12-17 04:00] VITALS: BP 138/67
[2017-12-17] MEDS: HYDROMORPHONE HCL/PF 2MG/ML CPJ IV PRN ×3 (05:02→18:18)
[2017-12-17] MEDS: BLOOD SUGAR DIAGNOSTIC STRIP TEST SCH ×4 (06:28→20:56)
[2017-12-17] MEDS: INSULIN LISPRO 100 UNITS/ML SUBCUT SCH ×4 (06:28→21:00)
[2017-12-17 07:49] LABS: BASOPHILS % 0.5 % (0.0-2.0); EOSINOPHILS % 7.6 % (0.0-5.0); HEMATOCRIT. 27.3 % (36.0-48.0); HEMOGLOBIN. 8.7 g/dL (12.0-16.0); LYMPHOCYTES % 16.5 % (20.0-50.0); MEAN CORPUSCULAR HEMOGLOBIN 28.8 pg (28.0-32.0); MEAN CORPUSCULAR VOLUME 89.9 fL (81.0-99.0); MONOCYTES % 4.9 % (2.0-8.0); NEUTROPHILS % 70.5 % (40.0-76.0); RED BLOOD CELL COUNT 3.03 mill/uL (4.2-5.4); RED CELL DISTRIBUTION WIDTH 16.9 % (11.6-14.6)
[2017-12-17 08:35] VITALS: BP 120/84
[2017-12-17] MEDS: METOPROLOL TARTRATE 25MG TABLET PO SCH ×2 (08:37→20:51)
[2017-12-17] MEDS: AMLODIPINE 10MG TABLET PO SCH (08:38)
[2017-12-17] MEDS: ASPIRIN 81MG EC TABLET PO SCH (08:38)
[2017-12-17] MEDS ORDERED: DIPHENHYDRAMINE 50MG/ML VIAL IV NR (09:30)
[2017-12-17] MEDS ORDERED: THROAT LOZENGES-BENZOCAINE/MENTH/CETYLPYRD CL LOZENGES MM PRN (09:45)
[2017-12-17 10:09] LABS: PLATELET 288 x1000/uL (130-400)
[2017-12-17 12:00] VITALS: BP 137/68
[2017-12-17 16:03] VITALS: BP 146/79
[2017-12-17 20:00] VITALS: BP 103/78
[2017-12-17] MEDS: EPOETIN ALFA 10000UNITS/ML VIAL SUBCUT SCH (22:05)
[2017-12-17] MEDS: INSULIN GLARGINE UD 100 UNITS/ML SYR SUBCUT SCH (22:06)
[2017-12-18] VITALS (8 sets, daily range): BP systolic 108–145; BP diastolic 51–78
[2017-12-18] MEDS: HYDROMORPHONE HCL/PF 2MG/ML CPJ IV PRN ×4 (00:26→19:53)
[2017-12-18] MEDS: DIPHENHYDRAMINE 50MG/ML VIAL IV PRN ×5 (00:47→21:45)
[2017-12-18] MEDS: BLOOD SUGAR DIAGNOSTIC STRIP TEST SCH ×4 (06:15→21:07)
[2017-12-18] MEDS: INSULIN LISPRO 100 UNITS/ML SUBCUT SCH ×4 (06:36→21:18)
[2017-12-18 07:24] LABS: EOSINOPHILS % 7.3 % (0.0-5.0); HEMATOCRIT. 27.2 % (36.0-48.0); HEMOGLOBIN. 8.6 g/dL (12.0-16.0); LYMPHOCYTES % 15.1 % (20.0-50.0); MEAN CORPUSCULAR HEMOGLOBIN 28.7 pg (28.0-32.0); MEAN CORPUSCULAR VOLUME 90.7 fL (81.0-99.0); MEAN PLATELET VOLUME 7.9 fl (7.4-10.4); MONOCYTES % 4.7 % (2.0-8.0); NEUTROPHILS % 71.9 % (40.0-76.0); PLATELET 301 x1000/uL (130-400); RED CELL DISTRIBUTION WIDTH 17.4 % (11.6-14.6)
[2017-12-18] MEDS: AMLODIPINE 10MG TABLET PO SCH (08:49)
[2017-12-18] MEDS: METOPROLOL TARTRATE 25MG TABLET PO SCH ×2 (08:49→20:16)
[2017-12-18] MEDS ORDERED: DIPHENHYDRAMINE 50MG/ML VIAL IV NR (09:00)
[2017-12-18] MEDS: ASPIRIN 81MG EC TABLET PO SCH (09:00)
[2017-12-18] MEDS ORDERED: MAGNESIUM/ALUMINUM HYDROXIDE/SIMETHICONE 30ML UDC PO PRN (09:15)
[2017-12-18] MEDS ORDERED: HEPARIN SODIUM 1,000 UNIT/1ML VIAL IV NR (13:15)
[2017-12-18] MEDS: INSULIN GLARGINE UD 100 UNITS/ML SYR SUBCUT SCH (21:19)
== END 2017-12-18 23:40 | disposition home or self-care (01) | DRG 286 ==
LOC: ER 00:04 → EDBEDREQ 00:37 → EDBEDREQTM 01:04 → 8WST 07:41 → ENRESERV 07:41 → 8WST 10:16
PROVIDERS: ADMIT Hospitalist; ATTEND Hospitalist
PROC: 0JH63XZ Insertion of Tunneled Vascular Access Device into Chest Subcutaneous Tissue and Fascia, Percutaneous Approach (ICD-10-PCS; principal; 2017-12-15)
PROC: B2141ZZ Fluoroscopy of Right Heart using Low Osmolar Contrast (ICD-10-PCS; 2017-12-15)
PROC: 02H633Z Insertion of Infusion Device into Right Atrium, Percutaneous Approach (ICD-10-PCS; 2017-12-15)
PROC: 05HY33Z Insertion of Infusion Device into Upper Vein, Percutaneous Approach (ICD-10-PCS; 2017-12-15)
PROC: B51N1ZA Fluoroscopy of Left Upper Extremity Veins using Low Osmolar Contrast, Guidance (ICD-10-PCS; 2017-12-15)
PROC: B54NZZA Ultrasonography of Left Upper Extremity Veins, Guidance (ICD-10-PCS; 2017-12-15)
PROC: 05PY33Z Removal of Infusion Device from Upper Vein, Percutaneous Approach (ICD-10-PCS; 2017-12-15)
PROC: 5A1D70Z Performance of Urinary Filtration, Intermittent, Less than 6 Hours Per Day (ICD-10-PCS; 2017-12-16)
PROC: 5A1D70Z Performance of Urinary Filtration, Intermittent, Less than 6 Hours Per Day (ICD-10-PCS; 2017-12-17)
PROC: 5A1D70Z Performance of Urinary Filtration, Intermittent, Less than 6 Hours Per Day (ICD-10-PCS; 2017-12-18)
DX: T82.41XA Breakdown (mechanical) of vascular dialysis catheter, initial encounter (principal); I50.33 Acute on chronic diastolic (congestive) heart failure; N18.6 End stage renal disease; I13.2 Hypertensive heart and chronic kidney disease with heart failure and with stage 5 chronic kidney disease, or end stage renal disease; Z99.2 Dependence on renal dialysis; E11.22 Type 2 diabetes mellitus with diabetic chronic kidney disease; E87.5 Hyperkalemia; D64.9 Anemia, unspecified; E11.319 Type 2 diabetes mellitus with unspecified diabetic retinopathy without macular edema; E11.51 Type 2 diabetes mellitus with diabetic peripheral angiopathy without gangrene; J02.9 Acute pharyngitis, unspecified; R07.89 Other chest pain; H54.7 Unspecified visual loss; Z89.511 Acquired absence of right leg below knee; Z89.512 Acquired absence of left leg below knee; Z91.19 Patient's noncompliance with other medical treatment and regimen; Z88.1 Allergy status to other antibiotic agents; Z88.0 Allergy status to penicillin; Z88.2 Allergy status to sulfonamides; Z88.6 Allergy status to analgesic agent; Z88.8 Allergy status to other drugs, medicaments and biological substances; Z79.4 Long term (current) use of insulin; Z79.899 Other long term (current) drug therapy; Y83.8 Other surgical procedures as the cause of abnormal reaction of the patient, or of later complication, without mention of misadventure at the time of the procedure; Y92.89 Other specified places as the place of occurrence of the external cause
CPT/HCPCS: 36415; 36558; 36569; 36589; 71045; 76937; 77001; 80048; 80061; 82550; 82553; 82962; 83735; 84100; 84132; 84484; 84703; 85025; 85610; 85730; 93005; 96374; 96375; 99291; C1725; C1750; C1769; J0610; J0885; J1170; J1200; J1644; J1815; J2270; J2405; J3010; J3490; J7030; J7050; J7060

== ENCOUNTER 2018-01-13 18:57 | Emergency (ER) | payer MEDICARE, MEDICAID ==
[~2018-01-13] VITALS: Ht 149.9 cm; Wt 82.0 kg
[2018-01-13] MEDS ORDERED: MORPHINE SULFATE 4 MG/ML CPJ (NOT FOR IM USE) IV STA (20:01)
[2018-01-13 20:59] LABS: BASOPHILS % 0.8 % (0.0-2.0); EOSINOPHILS % 4.1 % (0.0-5.0); HEMATOCRIT. 35.3 % (36.0-48.0); HEMOGLOBIN. 11.1 g/dL (12.0-16.0); LYMPHOCYTES % 12.5 % (20.0-50.0); MEAN CORPUSCULAR HEMOGLOBIN 27.8 pg (28.0-32.0); MEAN CORPUSCULAR VOLUME 88.1 fL (81.0-99.0); MEAN PLATELET VOLUME 7.4 fl (7.4-10.4); MONOCYTES % 4.4 % (2.0-8.0); NEUTROPHILS % 78.2 % (40.0-76.0); PLATELET 394 x1000/uL (130-400); RED BLOOD CELL COUNT 4.01 mill/uL (4.2-5.4); RED CELL DISTRIBUTION WIDTH 17.4 % (11.6-14.6)
[2018-01-13 21:04] LABS: CHLORIDE 93 mEq/L (98-107)
[2018-01-13 21:06] LABS: PROTHROMBIN TIME 9.9 sec (9.1-11.1)
[2018-01-13] MEDS ORDERED: DIPHENHYDRAMINE 25MG CAPSULE PO ONE (21:15)
[2018-01-13 23:01] VITALS: BP 167/53
== END 2018-01-13 23:45 | disposition home or self-care (01) ==
LOC: ER 18:57
DX: I13.2 Hypertensive heart and chronic kidney disease with heart failure and with stage 5 chronic kidney disease, or end stage renal disease (principal); G89.29 Other chronic pain; M79.605 Pain in left leg; M79.604 Pain in right leg; L94.2 Calcinosis cutis; E11.22 Type 2 diabetes mellitus with diabetic chronic kidney disease; I50.9 Heart failure, unspecified; N18.6 End stage renal disease; Z99.2 Dependence on renal dialysis; Z89.512 Acquired absence of left leg below knee; Z89.511 Acquired absence of right leg below knee; Z88.1 Allergy status to other antibiotic agents; Z88.0 Allergy status to penicillin; Z88.2 Allergy status to sulfonamides; Z88.6 Allergy status to analgesic agent; Z79.4 Long term (current) use of insulin
CPT/HCPCS: 36415; 71045; 80053; 83605; 84484; 85025; 85610; 87040; 93005; 96374; 99285; J2270; Q0163

== ENCOUNTER 2018-03-22 09:20 | Inpatient (IN) | payer MEDICARE, MEDICAID ==
[~2018-03-22] VITALS: Ht 152.4 cm; Wt 91.2 kg
[2018-03-22] MEDS ORDERED: MORPHINE SULFATE 4 MG/ML CPJ (NOT FOR IM USE) IV STA (09:31)
[2018-03-22] MEDS ORDERED: DIPHENHYDRAMINE 50MG/ML VIAL IV ONE (09:45)
[2018-03-22 10:46] LABS: BASOPHILS % 0.6 % (0.0-2.0); EOSINOPHILS % 2.8 % (0.0-5.0); HEMATOCRIT. 40.3 % (36.0-48.0); LYMPHOCYTES % 10.1 % (20.0-50.0); MEAN CORPUSCULAR HEMOGLOBIN 27.5 pg (28.0-32.0); MEAN CORPUSCULAR VOLUME 85.3 fL (81.0-99.0); MEAN PLATELET VOLUME 7.4 fl (7.4-10.4); MONOCYTES % 4.2 % (2.0-8.0); NEUTROPHILS % 82.3 % (40.0-76.0); PLATELET 365 x1000/uL (130-400); RED BLOOD CELL COUNT 4.73 mill/uL (4.2-5.4)
[2018-03-22 10:53] LABS: CHLORIDE 94 mEq/L (98-107)
[2018-03-22] MEDS ORDERED: FUROSEMIDE 100MG/10ML VIAL IV STA (10:59)
[2018-03-22] MEDS ORDERED: INSULIN REGULAR (HUMULIN R) 300UNITS/3ML IV ONE (11:00)
[2018-03-22] MEDS ORDERED: DEXTROSE 50% WATER 50ML SYRINGE IV ONE (11:00)
[2018-03-22] MEDS ORDERED: SODIUM BICARBONATE 8.4% 1 MEQ/ML 50ML SYR IV ONE (11:00)
[2018-03-22] MEDS ORDERED: ALBUTEROL (0.083%) 2.5MG/3ML NEB HHN ONE (11:00)
[2018-03-22] MEDS ORDERED: ALTEPLASE 2MG/VIAL ITC ONE (11:15)
[2018-03-22] MEDS ORDERED: GUAIFENESIN 200MG/10ML SUGAR FREE UDC PO PRN (11:30)
[2018-03-22] MEDS ORDERED: DOCUSATE SODIUM 100MG CAPSULE PO PRN (11:30)
[2018-03-22] MEDS ORDERED: IPRATROPIUM/ALBUTEROL 0.5-3(2.5)MG/3ML NEB INH PRN (11:30)
[2018-03-22] MEDS ORDERED: LORAZEPAM 2MG/ML CPJ IV PRN (11:30)
[2018-03-22] MEDS ORDERED: CLONIDINE 0.1MG TABLET PO PRN (11:30)
[2018-03-22] MEDS ORDERED: LIDOCAINE HCL 1% 20ML VIAL (Pyxis) INJ ONE (13:06)
[2018-03-22] MEDS: HYDROMORPHONE HCL/PF 2MG/ML CPJ IV PRN ×2 (14:47→21:30)
[2018-03-22] MEDS: DIPHENHYDRAMINE 50MG/ML VIAL IV PRN ×2 (16:00→21:29)
[2018-03-22 17:41] LABS: CHLORIDE 95 mEq/L (98-107)
[2018-03-22] MEDS ORDERED: NA PHOS,M-B/NA PHOS,DI-BA ENEMA 118ML PR PRN (18:00)
[2018-03-22] MEDS: METOPROLOL TARTRATE 25MG TABLET PO SCH (21:00)
[2018-03-22] MEDS: AMLODIPINE 5MG TABLET PO SCH (21:00)
[2018-03-22] MEDS ORDERED: DEXTROSE 50% WATER 50ML SYRINGE IV PRN (21:45)
[2018-03-22] MEDS: ENOXAPARIN 30MG/0.3ML SYR SUBCUT SCH (21:50)
[2018-03-22 22:00] VITALS: BP 175/68
[2018-03-23] VITALS: BP 135/100
[2018-03-23] MEDS ORDERED: DIPHENHYDRAMINE 50MG/ML VIAL IV SCH (00:18)
[2018-03-23] MEDS ORDERED: HEPARIN SODIUM 1,000 UNIT/1ML VIAL IV SCH (02:30)
[2018-03-23] MEDS: DIPHENHYDRAMINE 50MG/ML VIAL IV PRN ×5 (02:56→20:58)
[2018-03-23] MEDS: HYDROMORPHONE HCL/PF 2MG/ML CPJ IV PRN ×5 (02:57→20:58)
[2018-03-23] MEDS: BLOOD SUGAR DIAGNOSTIC STRIP TEST SCH ×4 (06:50→21:47)
[2018-03-23 07:47] LABS: BASOPHILS % 0.5 % (0.0-2.0); EOSINOPHILS % 2.8 % (0.0-5.0); HEMATOCRIT. 38.1 % (36.0-48.0); HEMOGLOBIN. 12.3 g/dL (12.0-16.0); LYMPHOCYTES % 14.5 % (20.0-50.0); MEAN CORPUSCULAR HEMOGLOBIN 27.4 pg (28.0-32.0); MEAN CORPUSCULAR VOLUME 84.8 fL (81.0-99.0); MEAN PLATELET VOLUME 7.7 fl (7.4-10.4); MONOCYTES % 5.9 % (2.0-8.0); NEUTROPHILS % 76.3 % (40.0-76.0); PLATELET 362 x1000/uL (130-400); RED BLOOD CELL COUNT 4.49 mill/uL (4.2-5.4); RED CELL DISTRIBUTION WIDTH 16.9 % (11.6-14.6)
[2018-03-23 08:00] VITALS: BP 119/55
[2018-03-23] MEDS: INSULIN LISPRO 100 UNITS/ML SUBCUT SCH ×5 (08:19→21:48)
[2018-03-23] MEDS: AMLODIPINE 5MG TABLET PO SCH ×2 (08:21→20:20)
[2018-03-23] MEDS: METOPROLOL TARTRATE 25MG TABLET PO SCH ×2 (08:21→20:20)
[2018-03-23] MEDS: MAGNESIUM/ALUMINUM HYDROXIDE/SIMETHICONE 30ML UDC PO PRN (08:26)
[2018-03-23 12:00] VITALS: BP 121/74
[2018-03-23] MEDS ORDERED: HEPARIN 1000 UNITS/ML 10ML ONE (13:07)
[2018-03-23] MEDS ORDERED: LIDOCAINE HCL 1% 20ML VIAL (Pyxis) INJ ONE (13:07)
[2018-03-23 13:30] VITALS: BP 95/33
[2018-03-23] MEDS: ONDANSETRON HCL 4MG/2ML INJ IV PRN ×2 (14:08→20:19)
[2018-03-23 16:00] VITALS: BP 109/54
[2018-03-23 16:00] LABS: CHLORIDE 95 mEq/L (98-107)
[2018-03-23 16:10] LABS: LDL CHOLESTEROL 185 mg/dL (5-100)
[2018-03-23 16:11] LABS: HDL CHOLESTEROL 50 mg/dL (40-59)
[2018-03-23 16:12] LABS: T4 FREE 1.08 ng/dL (0.76-1.46)
[2018-03-23] MEDS: ASPIRIN 81MG EC TABLET PO SCH (18:00)
[2018-03-23 20:00] VITALS: BP 104/63
[2018-03-23] MEDS: ENOXAPARIN 30MG/0.3ML SYR SUBCUT SCH (20:21)
[2018-03-24] VITALS: BP 108/65
[2018-03-24] MEDS: DIPHENHYDRAMINE 50MG/ML VIAL IV PRN ×6 (01:06→22:36)
[2018-03-24] MEDS: HYDROMORPHONE HCL/PF 2MG/ML CPJ IV PRN ×6 (01:07→22:38)
[2018-03-24] MEDS: ONDANSETRON HCL 4MG/2ML INJ IV PRN ×3 (02:48→16:27)
[2018-03-24 04:00] VITALS: BP 94/42
[2018-03-24] MEDS: BLOOD SUGAR DIAGNOSTIC STRIP TEST SCH ×4 (05:41→21:04)
[2018-03-24] MEDS: INSULIN LISPRO 100 UNITS/ML SUBCUT SCH ×4 (08:10→21:00)
[2018-03-24 08:13] VITALS: BP 98/37
[2018-03-24] MEDS: ASPIRIN 81MG EC TABLET PO SCH (08:50)
[2018-03-24] MEDS: AMLODIPINE 5MG TABLET PO SCH ×2 (09:00→21:00)
[2018-03-24] MEDS: MAGNESIUM/ALUMINUM HYDROXIDE/SIMETHICONE 30ML UDC PO PRN ×2 (09:00→16:27)
[2018-03-24] MEDS: METOPROLOL TARTRATE 25MG TABLET PO SCH ×2 (09:00→21:00)
[2018-03-24 12:00] VITALS: BP 101/84
[2018-03-24] MEDS ORDERED: HEPARIN SODIUM 1,000 UNIT/1ML VIAL IV SCH (12:00)
[2018-03-24 12:59] LABS: BASOPHILS % 0.5 % (0.0-2.0); EOSINOPHILS % 3.4 % (0.0-5.0); HEMATOCRIT. 37.7 % (36.0-48.0); LYMPHOCYTES % 11.6 % (20.0-50.0); MEAN CORPUSCULAR HEMOGLOBIN 26.9 pg (28.0-32.0); MEAN CORPUSCULAR VOLUME 84.6 fL (81.0-99.0); MEAN PLATELET VOLUME 7.9 fl (7.4-10.4); MONOCYTES % 7.6 % (2.0-8.0); NEUTROPHILS % 76.9 % (40.0-76.0); PLATELET 350 x1000/uL (130-400); RED BLOOD CELL COUNT 4.46 mill/uL (4.2-5.4)
[2018-03-24 16:00] VITALS: BP 98/52
[2018-03-24 20:00] VITALS: BP 106/45
[2018-03-24] MEDS: ENOXAPARIN 30MG/0.3ML SYR SUBCUT SCH (21:06)
[2018-03-25 00:24] VITALS: BP 100/61
[2018-03-25] MEDS: MAGNESIUM/ALUMINUM HYDROXIDE/SIMETHICONE 30ML UDC PO PRN ×2 (00:36→17:17)
[2018-03-25] MEDS: ONDANSETRON HCL 4MG/2ML INJ IV PRN ×4 (02:09→19:53)
[2018-03-25] MEDS: DIPHENHYDRAMINE 50MG/ML VIAL IV PRN ×5 (03:03→21:45)
[2018-03-25] MEDS: HYDROMORPHONE HCL/PF 2MG/ML CPJ IV PRN ×5 (03:03→21:45)
[2018-03-25 04:00] VITALS: BP 121/54
[2018-03-25] MEDS ORDERED: PANTOPRAZOLE SODIUM 40 MG/VIAL IV SCH (05:25)
[2018-03-25] MEDS: BLOOD SUGAR DIAGNOSTIC STRIP TEST SCH ×4 (06:45→21:45)
[2018-03-25 08:00] VITALS: BP 102/61
[2018-03-25] MEDS: ASPIRIN 81MG EC TABLET PO SCH (08:21)
[2018-03-25] MEDS: METOPROLOL TARTRATE 25MG TABLET PO SCH ×2 (08:21→21:44)
[2018-03-25] MEDS: AMLODIPINE 5MG TABLET PO SCH ×2 (08:22→21:44)
[2018-03-25] MEDS: INSULIN LISPRO 100 UNITS/ML SUBCUT SCH ×3 (08:31→17:18)
[2018-03-25] MEDS: PANTOPRAZOLE SODIUM 40 MG/VIAL IV SCH (09:13)
[2018-03-25 12:00] VITALS: BP 119/58
[2018-03-25 16:00] VITALS: BP 109/61
[2018-03-25 20:00] VITALS: BP 138/84
[2018-03-25] MEDS ORDERED: ENOXAPARIN 40MG/0.4ML SYR SUBCUT SCH (21:00)
[2018-03-26] MEDS: MAGNESIUM/ALUMINUM HYDROXIDE/SIMETHICONE 30ML UDC PO PRN ×2 (01:05→08:29)
[2018-03-26] MEDS: HYDROMORPHONE HCL/PF 2MG/ML CPJ IV PRN ×5 (01:44→19:52)
[2018-03-26] MEDS: DIPHENHYDRAMINE 50MG/ML VIAL IV PRN ×3 (01:54→11:04)
[2018-03-26] MEDS: INSULIN LISPRO 100 UNITS/ML SUBCUT SCH ×3 (02:12→13:02)
[2018-03-26 04:00] VITALS: BP 145/78
[2018-03-26] MEDS: BLOOD SUGAR DIAGNOSTIC STRIP TEST SCH ×3 (05:35→18:08)
[2018-03-26 07:39] LABS: BASOPHILS % 0.7 % (0.0-2.0); EOSINOPHILS % 5.3 % (0.0-5.0); HEMATOCRIT. 37.8 % (36.0-48.0); HEMOGLOBIN. 11.8 g/dL (12.0-16.0); LYMPHOCYTES % 15.7 % (20.0-50.0); MEAN CORPUSCULAR HEMOGLOBIN 26.8 pg (28.0-32.0); MEAN CORPUSCULAR VOLUME 86.2 fL (81.0-99.0); MEAN PLATELET VOLUME 7.8 fl (7.4-10.4); MONOCYTES % 7.1 % (2.0-8.0); NEUTROPHILS % 71.2 % (40.0-76.0); PLATELET 320 x1000/uL (130-400); RED BLOOD CELL COUNT 4.39 mill/uL (4.2-5.4); RED CELL DISTRIBUTION WIDTH 16.5 % (11.6-14.6)
[2018-03-26 08:00] VITALS: BP 124/66
[2018-03-26] MEDS: PANTOPRAZOLE SODIUM 40 MG/VIAL IV SCH (08:29)
[2018-03-26] MEDS: METOPROLOL TARTRATE 25MG TABLET PO SCH (08:30)
[2018-03-26] MEDS: AMLODIPINE 5MG TABLET PO SCH (08:30)
[2018-03-26] MEDS: ASPIRIN 81MG EC TABLET PO SCH (08:30)
[2018-03-26] MEDS: ONDANSETRON HCL 4MG/2ML INJ IV PRN ×2 (09:28→17:25)
[2018-03-26 12:00] VITALS: BP 152/72
[2018-03-26] MEDS ORDERED: HEPARIN SODIUM 1,000 UNIT/1ML VIAL IV NR (13:45)
[2018-03-26] MEDS ORDERED: DIPHENHYDRAMINE 50MG/ML VIAL IV NR (14:00)
[2018-03-26 16:00] VITALS: BP 98/36
[2018-03-26 18:44] VITALS: BP 97/53
== END 2018-03-26 20:10 | disposition home or self-care (01) | DRG 314 ==
LOC: ER 09:33 → 7WST 11:21 → ENRESERV 19:38 → 7WST 20:30
PROVIDERS: ADMIT Internal Medicine; ATTEND Internal Medicine
PROC: 5A1D70Z Performance of Urinary Filtration, Intermittent, Less than 6 Hours Per Day (ICD-10-PCS; principal; 2018-03-22)
PROC: 05HY33Z Insertion of Infusion Device into Upper Vein, Percutaneous Approach (ICD-10-PCS; 2018-03-22)
PROC: B54NZZA Ultrasonography of Left Upper Extremity Veins, Guidance (ICD-10-PCS; 2018-03-22)
PROC: B51N1ZA Fluoroscopy of Left Upper Extremity Veins using Low Osmolar Contrast, Guidance (ICD-10-PCS; 2018-03-22)
PROC: 0JPT3XZ Removal of Tunneled Vascular Access Device from Trunk Subcutaneous Tissue and Fascia, Percutaneous Approach (ICD-10-PCS; 2018-03-23)
PROC: 0JH63XZ Insertion of Tunneled Vascular Access Device into Chest Subcutaneous Tissue and Fascia, Percutaneous Approach (ICD-10-PCS; 2018-03-23)
PROC: 02PY33Z Removal of Infusion Device from Great Vessel, Percutaneous Approach (ICD-10-PCS; 2018-03-23)
PROC: 02HV33Z Insertion of Infusion Device into Superior Vena Cava, Percutaneous Approach (ICD-10-PCS; 2018-03-23)
PROC: B5181ZA Fluoroscopy of Superior Vena Cava using Low Osmolar Contrast, Guidance (ICD-10-PCS; 2018-03-23)
PROC: B548ZZA Ultrasonography of Superior Vena Cava, Guidance (ICD-10-PCS; 2018-03-23)
PROC: 5A1D70Z Performance of Urinary Filtration, Intermittent, Less than 6 Hours Per Day (ICD-10-PCS; 2018-03-24)
PROC: 5A1D70Z Performance of Urinary Filtration, Intermittent, Less than 6 Hours Per Day (ICD-10-PCS; 2018-03-25)
DX: T82.41XA Breakdown (mechanical) of vascular dialysis catheter, initial encounter (principal); N18.6 End stage renal disease; E46 Unspecified protein-calorie malnutrition; I13.2 Hypertensive heart and chronic kidney disease with heart failure and with stage 5 chronic kidney disease, or end stage renal disease; E87.5 Hyperkalemia; Z99.2 Dependence on renal dialysis; E11.319 Type 2 diabetes mellitus with unspecified diabetic retinopathy without macular edema; Z79.4 Long term (current) use of insulin; I50.9 Heart failure, unspecified; E11.51 Type 2 diabetes mellitus with diabetic peripheral angiopathy without gangrene; D64.9 Anemia, unspecified; E11.22 Type 2 diabetes mellitus with diabetic chronic kidney disease; Y84.1 Kidney dialysis as the cause of abnormal reaction of the patient, or of later complication, without mention of misadventure at the time of the procedure; E11.65 Type 2 diabetes mellitus with hyperglycemia; G89.4 Chronic pain syndrome; H54.8 Legal blindness, as defined in USA; I25.10 Atherosclerotic heart disease of native coronary artery without angina pectoris; J44.9 Chronic obstructive pulmonary disease, unspecified; K21.9 Gastro-esophageal reflux disease without esophagitis; Z82.49 Family history of ischemic heart disease and other diseases of the circulatory system; Z83.3 Family history of diabetes mellitus; Z89.511 Acquired absence of right leg below knee; Z89.512 Acquired absence of left leg below knee; Z68.39 Body mass index [BMI] 39.0-39.9, adult; Z88.1 Allergy status to other antibiotic agents; Z88.2 Allergy status to sulfonamides; Z88.0 Allergy status to penicillin; Z88.8 Allergy status to other drugs, medicaments and biological substances; Z88.6 Allergy status to analgesic agent; Z91.013 Allergy to seafood; Z79.899 Other long term (current) drug therapy; Y92.89 Other specified places as the place of occurrence of the external cause
CPT/HCPCS: 36415; 36569; 36581; 71045; 76937; 77001; 80048; 80061; 82962; 84132; 84439; 84443; 84484; 93005; 93308; 94640; 96374; 96375; 99285; C1725; C1750; C1769; C9113; J1170; J1200; J1642; J1644; J1650; J1815; J1940; J2060; J2270; J2405; J3490; J7611

== ENCOUNTER 2018-04-21 11:14 | Emergency (ER) | payer MEDICARE, MEDICAID ==
[~2018-04-21] VITALS: Ht 149.9 cm; Wt 91.0 kg
[2018-04-21] MEDS ORDERED: MORPHINE SULFATE 4 MG/ML CPJ (NOT FOR IM USE) IV STA (12:13)
[2018-04-21] MEDS ORDERED: HYDROXYZINE 25MG TABLET PO ONE (12:30)
[2018-04-21] MEDS ORDERED: MORPHINE SULFATE 10 MG/ML CPJ IV STA (12:33)
[2018-04-21] MEDS ORDERED: DIPHENHYDRAMINE 25MG CAPSULE PO ONE (12:45)
[2018-04-21 12:49] LABS: BASOPHILS % 0.6 % (0.0-2.0); EOSINOPHILS % 3.6 % (0.0-5.0); HEMATOCRIT. 35.5 % (36.0-48.0); HEMOGLOBIN. 12.2 g/dL (12.0-16.0); LYMPHOCYTES % 11.2 % (20.0-50.0); MEAN CORPUSCULAR VOLUME 84.8 fL (81.0-99.0); MEAN PLATELET VOLUME 7.1 fl (7.4-10.4); MONOCYTES % 4.5 % (2.0-8.0); NEUTROPHILS % 80.1 % (40.0-76.0); PLATELET 361 x1000/uL (130-400); RED BLOOD CELL COUNT 4.19 mill/uL (4.2-5.4); RED CELL DISTRIBUTION WIDTH 16.3 % (11.6-14.6)
[2018-04-21 13:12] LABS: CHLORIDE 98 mEq/L (98-107)
[2018-04-21] MEDS ORDERED: FENTANYL CITRATE/PF 50MCG/ML 2ML VIAL IV ONE (14:30)
[2018-04-21 16:00] VITALS: BP 120/65
== END 2018-04-21 16:41 | disposition home or self-care (01) ==
LOC: ER 11:14
DX: L03.317 Cellulitis of buttock (principal); N18.9 Chronic kidney disease, unspecified; G89.29 Other chronic pain; I50.9 Heart failure, unspecified; E11.9 Type 2 diabetes mellitus without complications; Z79.4 Long term (current) use of insulin; Z88.0 Allergy status to penicillin; Z88.1 Allergy status to other antibiotic agents; Z88.6 Allergy status to analgesic agent; Z79.899 Other long term (current) drug therapy
CPT/HCPCS: 36415; 80053; 84484; 85025; 87040; 93005; 96374; 99284; J2270; J3010; Q0163

== ENCOUNTER 2018-04-29 08:30 | Inpatient (IN) | payer MEDICAID, MEDICARE ==
[~2018-04-29] VITALS: Ht 160 cm; Wt 104.3 kg
[2018-04-29] MEDS ORDERED: MORPHINE SULFATE 4 MG/ML CPJ (NOT FOR IM USE) IV STA (08:51)
[2018-04-29] MEDS ORDERED: ONDANSETRON HCL 4MG/2ML INJ IV STA (08:51)
[2018-04-29] MEDS ORDERED: DIPHENHYDRAMINE 50MG/ML VIAL IV ONE (09:00)
[2018-04-29 09:23] LABS: EOSINOPHILS % 3.5 % (0.0-5.0); HEMATOCRIT. 36.2 % (36.0-48.0); HEMOGLOBIN. 11.7 g/dL (12.0-16.0); LYMPHOCYTES % 20.7 % (20.0-50.0); MEAN CORPUSCULAR HEMOGLOBIN 27.3 pg (28.0-32.0); MEAN CORPUSCULAR VOLUME 84.7 fL (81.0-99.0); MEAN PLATELET VOLUME 7.3 fl (7.4-10.4); MONOCYTES % 6.4 % (2.0-8.0); NEUTROPHILS % 68.4 % (40.0-76.0); PLATELET 409 x1000/uL (130-400); RED BLOOD CELL COUNT 4.27 mill/uL (4.2-5.4); RED CELL DISTRIBUTION WIDTH 16.6 % (11.6-14.6)
[2018-04-29 09:30] LABS: CHLORIDE 100 mEq/L (98-107)
[2018-04-29 09:45] LABS: HCG SCREEN NEGATIVE
[2018-04-29] MEDS ORDERED: MORPHINE SULFATE 10 MG/ML CPJ IV STA (09:52)
[2018-04-29] MEDS ORDERED: MORPHINE SULFATE 10 MG/ML CPJ IV NR (10:00)
[2018-04-29] MEDS ORDERED: SODIUM BICARBONATE 8.4% 1 MEQ/ML 50ML SYR IV ONE (10:15)
[2018-04-29] MEDS ORDERED: ALBUTEROL (0.083%) 2.5MG/3ML NEB HHN ONE (10:15)
[2018-04-29] MEDS ORDERED: NA PHOS,M-B/NA PHOS,DI-BA ENEMA 118ML PR PRN (10:30)
[2018-04-29] MEDS ORDERED: IPRATROPIUM/ALBUTEROL 0.5-3(2.5)MG/3ML NEB INH PRN (10:30)
[2018-04-29] MEDS ORDERED: LORAZEPAM 2MG/ML CPJ IV PRN (10:30)
[2018-04-29] MEDS ORDERED: HYDROCODONE/ACETAMINOPHEN 10/325MG TABLET PO PRN (10:30)
[2018-04-29] MEDS ORDERED: CLONIDINE 0.1MG TABLET PO PRN (10:30)
[2018-04-29] MEDS ORDERED: DOCUSATE SODIUM 100MG CAPSULE PO PRN (10:30)
[2018-04-29] MEDS ORDERED: MAGNESIUM/ALUMINUM HYDROXIDE/SIMETHICONE 30ML UDC PO PRN (10:30)
[2018-04-29] MEDS ORDERED: GUAIFENESIN 200MG/10ML SUGAR FREE UDC PO PRN (10:30)
[2018-04-29 14:45] VITALS: BP 136/65
[2018-04-29 15:26] VITALS: BP 136/65
[2018-04-29 15:57] VITALS: BP 130/68
[2018-04-29] MEDS ORDERED: DEXTROSE 50% WATER 50ML SYRINGE IV PRN (16:00)
[2018-04-29] MEDS: ENOXAPARIN 40MG/0.4ML SYR SUBCUT SCH (16:00)
[2018-04-29] MEDS ORDERED: DIPHENHYDRAMINE 50MG/ML VIAL IV PRN (16:15)
[2018-04-29] MEDS: HYDROMORPHONE HCL/PF 2MG/ML CPJ IV PRN ×2 (16:58→20:06)
[2018-04-29] MEDS: BLOOD SUGAR DIAGNOSTIC STRIP TEST SCH ×2 (17:40→19:55)
[2018-04-29] MEDS: INSULIN LISPRO 100 UNITS/ML SUBCUT SCH ×2 (17:47→20:05)
[2018-04-29 20:00] VITALS: BP 134/66
[2018-04-29] MEDS: DIPHENHYDRAMINE 50MG/ML VIAL IV PRN (21:59)
[2018-04-30] VITALS: BP 127/100
[2018-04-30] MEDS: HYDROMORPHONE HCL/PF 2MG/ML CPJ IV PRN ×6 (00:53→23:54)
[2018-04-30] MEDS: DIPHENHYDRAMINE 50MG/ML VIAL IV PRN ×4 (01:52→17:51)
[2018-04-30 04:00] VITALS: BP 157/90
[2018-04-30 06:26] LABS: BASOPHILS % 0.6 % (0.0-2.0); EOSINOPHILS % 2.4 % (0.0-5.0); HEMATOCRIT. 34.5 % (36.0-48.0); LYMPHOCYTES % 14.6 % (20.0-50.0); MEAN CORPUSCULAR HEMOGLOBIN 27.3 pg (28.0-32.0); MEAN CORPUSCULAR VOLUME 85.6 fL (81.0-99.0); MEAN PLATELET VOLUME 7.4 fl (7.4-10.4); MONOCYTES % 4.5 % (2.0-8.0); NEUTROPHILS % 77.9 % (40.0-76.0); PLATELET 371 x1000/uL (130-400); RED BLOOD CELL COUNT 4.03 mill/uL (4.2-5.4)
[2018-04-30 06:36] LABS: CHLORIDE 100 mEq/L (98-107)
[2018-04-30 06:46] LABS: LDL CHOLESTEROL 162 mg/dL (5-100)
[2018-04-30 06:48] LABS: HDL CHOLESTEROL 47 mg/dL (40-59)
[2018-04-30] MEDS: BLOOD SUGAR DIAGNOSTIC STRIP TEST SCH ×4 (07:03→21:00)
[2018-04-30 08:00] VITALS: BP 121/66
[2018-04-30] MEDS ORDERED: SODIUM BICARBONATE 8.4% 1 MEQ/ML 50ML SYR IV NR (08:00)
[2018-04-30] MEDS ORDERED: DEXTROSE 50% WATER 50ML SYRINGE IV NR (08:30)
[2018-04-30] MEDS ORDERED: CALCIUM GLUCONATE 1,000 MG in DEXT 5% WATER 90 ML IV NR (08:30)
[2018-04-30] MEDS ORDERED: INSULIN REGULAR (HUMULIN R) UD 100 UNITS/ML SYR IV NR (08:30)
[2018-04-30] MEDS: ASPIRIN 81MG EC TABLET PO SCH (08:33)
[2018-04-30] MEDS: INSULIN LISPRO 100 UNITS/ML SUBCUT SCH ×4 (08:33→21:00)
[2018-04-30] MEDS: LIDOCAINE HCL 4% (40MG/ML) SOLN 50ML TOP SCH (09:00)
[2018-04-30] MEDS ORDERED: ALTEPLASE 2MG/VIAL ITC NR (09:00)
[2018-04-30] MEDS: HYDROCORTISONE 1% CREAM 30GM TOP SCH ×2 (09:00→21:00)
[2018-04-30] MEDS ORDERED: HEPARIN SODIUM 1,000 UNIT/1ML VIAL IV NR (14:00)
[2018-04-30 16:00] VITALS: BP 132/78
[2018-04-30] MEDS: ENOXAPARIN 40MG/0.4ML SYR SUBCUT SCH (16:00)
[2018-04-30 20:00] VITALS: BP 95/54
[2018-04-30] MEDS: MAGNESIUM HYDROXIDE 400MG/5ML 30ML UDC PO PRN (22:04)
[2018-04-30] MEDS: PANTOPRAZOLE SODIUM 40 MG/VIAL IV SCH (22:05)
[2018-04-30] MEDS: ONDANSETRON HCL 4MG/2ML INJ IV PRN (23:54)
[2018-05-01] VITALS: BP 123/53
[2018-05-01] MEDS: DIPHENHYDRAMINE 50MG/ML VIAL IV PRN ×4 (00:02→18:18)
[2018-05-01 04:00] VITALS: BP 139/79
[2018-05-01] MEDS: HYDROMORPHONE HCL/PF 2MG/ML CPJ IV PRN ×3 (05:51→18:18)
[2018-05-01] MEDS: MAGNESIUM HYDROXIDE 400MG/5ML 30ML UDC PO PRN (06:05)
[2018-05-01] MEDS: BLOOD SUGAR DIAGNOSTIC STRIP TEST SCH ×4 (06:11→21:23)
[2018-05-01] MEDS: INSULIN LISPRO 100 UNITS/ML SUBCUT SCH ×4 (07:51→21:23)
[2018-05-01 08:00] VITALS: BP 111/35
[2018-05-01] MEDS: HYDROCORTISONE 1% CREAM 30GM TOP SCH ×2 (08:03→21:23)
[2018-05-01] MEDS: ASPIRIN 81MG EC TABLET PO SCH (08:03)
[2018-05-01] MEDS: PANTOPRAZOLE SODIUM 40 MG/VIAL IV SCH (08:03)
[2018-05-01] MEDS: LIDOCAINE HCL 4% (40MG/ML) SOLN 50ML TOP SCH (08:04)
[2018-05-01 10:56] LABS: BASOPHILS % 0.6 % (0.0-2.0); EOSINOPHILS % 2.5 % (0.0-5.0); HEMATOCRIT. 34.6 % (36.0-48.0); LYMPHOCYTES % 11.7 % (20.0-50.0); MEAN CORPUSCULAR VOLUME 85.1 fL (81.0-99.0); MEAN PLATELET VOLUME 7.6 fl (7.4-10.4); MONOCYTES % 4.8 % (2.0-8.0); NEUTROPHILS % 80.4 % (40.0-76.0); PLATELET 377 x1000/uL (130-400); RED BLOOD CELL COUNT 4.07 mill/uL (4.2-5.4)
[2018-05-01 12:00] VITALS: BP 135/115
[2018-05-01 16:00] VITALS: BP 116/59
[2018-05-01] MEDS: ENOXAPARIN 40MG/0.4ML SYR SUBCUT SCH (16:00)
[2018-05-01] MEDS ORDERED: DIPHENHYDRAMINE 50MG/ML VIAL IV NR (16:30)
[2018-05-01 20:00] VITALS: BP 98/58
[2018-05-02] MEDS: HYDROMORPHONE HCL/PF 2MG/ML CPJ IV PRN ×4 (00:13→23:55)
[2018-05-02] MEDS: DIPHENHYDRAMINE 50MG/ML VIAL IV PRN ×4 (00:13→23:55)
[2018-05-02 00:16] VITALS: BP 125/94
[2018-05-02 04:00] VITALS: BP 130/86
[2018-05-02] MEDS: BLOOD SUGAR DIAGNOSTIC STRIP TEST SCH ×4 (07:21→21:35)
[2018-05-02] MEDS: INSULIN LISPRO 100 UNITS/ML SUBCUT SCH ×4 (07:21→21:35)
[2018-05-02 07:35] VITALS: BP 138/77
[2018-05-02] MEDS: ASPIRIN 81MG EC TABLET PO SCH (09:11)
[2018-05-02] MEDS: LIDOCAINE HCL 4% (40MG/ML) SOLN 50ML TOP SCH (09:12)
[2018-05-02] MEDS: HYDROCORTISONE 1% CREAM 30GM TOP SCH ×2 (09:12→21:36)
[2018-05-02] MEDS: FAMOTIDINE 20MG TABLET PO SCH (09:12)
[2018-05-02 10:00] LABS: BASOPHILS % 0.5 % (0.0-2.0); EOSINOPHILS % 3.3 % (0.0-5.0); HEMATOCRIT. 32.5 % (36.0-48.0); HEMOGLOBIN. 10.3 g/dL (12.0-16.0); LYMPHOCYTES % 9.4 % (20.0-50.0); MEAN CORPUSCULAR VOLUME 85.4 fL (81.0-99.0); MEAN PLATELET VOLUME 7.1 fl (7.4-10.4); MONOCYTES % 4.8 % (2.0-8.0); PLATELET 354 x1000/uL (130-400); RED CELL DISTRIBUTION WIDTH 16.8 % (11.6-14.6)
[2018-05-02 12:17] VITALS: BP 137/71
[2018-05-02] MEDS ORDERED: LEVOFLOXACIN 500MG PREMIX 100 ML IV SCH (13:45)
[2018-05-02] MEDS ORDERED: HEPARIN SODIUM 1,000 UNIT/1ML VIAL IV NR (13:45)
[2018-05-02] MEDS: ENOXAPARIN 40MG/0.4ML SYR SUBCUT SCH (16:00)
[2018-05-02 16:08] VITALS: BP 97/55
[2018-05-02] MEDS: LEVOFLOXACIN 500MG PREMIX 100 ML IV SCH ×2 (16:24→16:26)
[2018-05-03] VITALS (8 sets, daily range): BP systolic 109–166; BP diastolic 38–90
[2018-05-03] MEDS: BLOOD SUGAR DIAGNOSTIC STRIP TEST SCH ×3 (06:42→18:13)
[2018-05-03] MEDS: INSULIN LISPRO 100 UNITS/ML SUBCUT SCH ×3 (07:41→18:47)
[2018-05-03 08:08] LABS: BASOPHILS % 0.7 % (0.0-2.0); EOSINOPHILS % 3.7 % (0.0-5.0); HEMATOCRIT. 31.4 % (36.0-48.0); HEMOGLOBIN. 10.1 g/dL (12.0-16.0); MEAN CORPUSCULAR HEMOGLOBIN 27.2 pg (28.0-32.0); MEAN CORPUSCULAR VOLUME 84.5 fL (81.0-99.0); MEAN PLATELET VOLUME 7.3 fl (7.4-10.4); MONOCYTES % 6.9 % (2.0-8.0); NEUTROPHILS % 73.7 % (40.0-76.0); PLATELET 319 x1000/uL (130-400); RED BLOOD CELL COUNT 3.72 mill/uL (4.2-5.4); RED CELL DISTRIBUTION WIDTH 16.8 % (11.6-14.6)
[2018-05-03] MEDS: ASPIRIN 81MG EC TABLET PO SCH (08:19)
[2018-05-03] MEDS: HYDROMORPHONE HCL/PF 2MG/ML CPJ IV PRN ×3 (08:19→21:21)
[2018-05-03] MEDS: FAMOTIDINE 20MG TABLET PO SCH (08:19)
[2018-05-03] MEDS: DIPHENHYDRAMINE 50MG/ML VIAL IV PRN ×3 (08:20→17:04)
[2018-05-03] MEDS: HYDROCORTISONE 1% CREAM 30GM TOP SCH (08:26)
[2018-05-03] MEDS: LIDOCAINE HCL 4% (40MG/ML) SOLN 50ML TOP SCH (08:26)
[2018-05-03] MEDS: ONDANSETRON HCL 4MG/2ML INJ IV PRN (09:37)
[2018-05-03] MEDS ORDERED: HEPARIN SODIUM 1,000 UNIT/1ML VIAL IV NR (14:15)
[2018-05-03] MEDS: ENOXAPARIN 40MG/0.4ML SYR SUBCUT SCH (16:00)
[2018-05-04] MEDS ORDERED: LEVOFLOXACIN 250MG PREMIX 50 ML IV SCH (11:00)
== END 2018-05-03 22:35 | disposition home or self-care (01) | DRG 640 ==
LOC: ER 08:30 → 7WST 10:20 → EDBEDREQTM 10:23 → EDBEDREQ 10:23 → ENRESERV 12:38
PROVIDERS: ADMIT Internal Medicine; ATTEND Internal Medicine
PROC: 5A1D70Z Performance of Urinary Filtration, Intermittent, Less than 6 Hours Per Day (ICD-10-PCS; principal; 2018-04-29)
PROC: 5A1D70Z Performance of Urinary Filtration, Intermittent, Less than 6 Hours Per Day (ICD-10-PCS; 2018-04-30)
PROC: 5A1D70Z Performance of Urinary Filtration, Intermittent, Less than 6 Hours Per Day (ICD-10-PCS; 2018-05-01)
PROC: 5A1D70Z Performance of Urinary Filtration, Intermittent, Less than 6 Hours Per Day (ICD-10-PCS; 2018-05-02)
PROC: 5A1D70Z Performance of Urinary Filtration, Intermittent, Less than 6 Hours Per Day (ICD-10-PCS; 2018-05-03)
DX: E87.70 Fluid overload, unspecified (principal); N18.6 End stage renal disease; I13.2 Hypertensive heart and chronic kidney disease with heart failure and with stage 5 chronic kidney disease, or end stage renal disease; Z68.41 Body mass index [BMI] 40.0-44.9, adult; E11.22 Type 2 diabetes mellitus with diabetic chronic kidney disease; E87.5 Hyperkalemia; I25.10 Atherosclerotic heart disease of native coronary artery without angina pectoris; I50.9 Heart failure, unspecified; G89.29 Other chronic pain; E66.9 Obesity, unspecified; D72.829 Elevated white blood cell count, unspecified; E11.319 Type 2 diabetes mellitus with unspecified diabetic retinopathy without macular edema; D64.9 Anemia, unspecified; E11.51 Type 2 diabetes mellitus with diabetic peripheral angiopathy without gangrene; H54.7 Unspecified visual loss; Z99.2 Dependence on renal dialysis; Z89.512 Acquired absence of left leg below knee; Z89.511 Acquired absence of right leg below knee; Z88.0 Allergy status to penicillin; Z88.2 Allergy status to sulfonamides; Z88.8 Allergy status to other drugs, medicaments and biological substances; Z91.013 Allergy to seafood
CPT/HCPCS: 36415; 71045; 80048; 80061; 82962; 83880; 84484; 84703; 93005; 99285; C1893; C9113; J0610; J1170; J1200; J1644; J1650; J1815; J1956; J2270; J2405; J2997; J3490; J7060; J7611

== ENCOUNTER 2018-05-09 05:33 | Inpatient (IN) | payer MEDICARE ==
[~2018-05-09] VITALS: Ht 152.4 cm; Wt 81.6 kg
[~2018-05-09 05:33] MED LIST changes: -CLOP75TA16 PO; -HYDR4TAB4 PO
[2018-05-09] MEDS ORDERED: OXYCODONE HCL 5MG TABLET PO ONE (07:00)
[2018-05-09 07:27] LABS: CHLORIDE 98 mEq/L (98-107)
[2018-05-09 07:36] LABS: HEMATOCRIT. 36.9 % (36.0-48.0); HEMOGLOBIN. 11.7 g/dL (12.0-16.0); LYMPHOCYTES % 18.3 % (20.0-50.0); MEAN CORPUSCULAR HEMOGLOBIN 27.2 pg (28.0-32.0); MEAN CORPUSCULAR VOLUME 85.9 fL (81.0-99.0); MEAN PLATELET VOLUME 7.2 fl (7.4-10.4); MONOCYTES % 5.6 % (2.0-8.0); NEUTROPHILS % 71.1 % (40.0-76.0); PLATELET 439 x1000/uL (130-400); RED CELL DISTRIBUTION WIDTH 16.8 % (11.6-14.6)
[2018-05-09] MEDS ORDERED: MAGNESIUM/ALUMINUM HYDROXIDE/SIMETHICONE 30ML UDC PO PRN (08:30)
[2018-05-09] MEDS ORDERED: GUAIFENESIN 200MG/10ML SUGAR FREE UDC PO PRN (08:30)
[2018-05-09] MEDS ORDERED: ENOXAPARIN 40MG/0.4ML SYR SUBCUT SCH (08:30)
[2018-05-09] MEDS ORDERED: IPRATROPIUM/ALBUTEROL 0.5-3(2.5)MG/3ML NEB INH PRN (08:30)
[2018-05-09] MEDS ORDERED: DOCUSATE SODIUM 100MG CAPSULE PO PRN (08:30)
[2018-05-09] MEDS ORDERED: NA PHOS,M-B/NA PHOS,DI-BA ENEMA 118ML PR PRN (08:30)
[2018-05-09] MEDS ORDERED: CLONIDINE 0.1MG TABLET PO PRN (08:30)
[2018-05-09] MEDS: ASPIRIN 81MG EC TABLET PO SCH (09:00)
[2018-05-09] MEDS ORDERED: LEVOFLOXACIN 500MG PREMIX 100 ML IV ONE (09:00)
[2018-05-09] MEDS: ENOXAPARIN 30MG/0.3ML SYR SUBCUT SCH (09:00)
[2018-05-09 10:09] LABS: HCG SCREEN NEGATIVE
[2018-05-09] MEDS: LORAZEPAM 2MG/ML CPJ IV PRN ×2 (11:11→11:26)
[2018-05-09] MEDS: HYDROMORPHONE HCL/PF 2MG/ML CPJ IV PRN ×2 (12:02→21:20)
[2018-05-09 14:39] LABS: PHOSPHORUS 5.7 mg/dL (2.5-4.9)
[2018-05-09] MEDS ORDERED: DIPHENHYDRAMINE 50MG/ML VIAL IV NR (17:15)
[2018-05-09] MEDS: ONDANSETRON HCL 4MG/2ML INJ IV PRN (17:35)
[2018-05-09 18:21] VITALS: BP 148/96
[2018-05-09] MEDS ORDERED: HEPARIN SODIUM 1,000 UNIT/1ML VIAL IV NR (19:15)
[2018-05-09] MEDS ORDERED: DEXTROSE 50% WATER 50ML SYRINGE IV PRN (19:45)
[2018-05-09 20:44] VITALS: BP 140/85
[2018-05-09] MEDS: INSULIN LISPRO 100 UNITS/ML SUBCUT SCH (20:57)
[2018-05-09] MEDS: BLOOD SUGAR DIAGNOSTIC STRIP TEST SCH (20:57)
[2018-05-09] MEDS: IPRATROPIUM/ALBUTEROL 0.5-3(2.5)MG/3ML NEB HHN SCH (21:35)
[2018-05-09] MEDS: DIPHENHYDRAMINE 50MG/ML VIAL IV PRN (22:54)
[2018-05-10] VITALS (7 sets, daily range): BP systolic 101–139; BP diastolic 47–93
[2018-05-10] MEDS: HYDROMORPHONE HCL/PF 2MG/ML CPJ IV PRN ×4 (02:42→18:53)
[2018-05-10] MEDS: DIPHENHYDRAMINE 50MG/ML VIAL IV PRN ×4 (04:19→23:29)
[2018-05-10] MEDS: IPRATROPIUM/ALBUTEROL 0.5-3(2.5)MG/3ML NEB HHN SCH (04:55)
[2018-05-10] MEDS: LORAZEPAM 2MG/ML CPJ IV PRN ×3 (05:28→20:44)
[2018-05-10] MEDS: BLOOD SUGAR DIAGNOSTIC STRIP TEST SCH ×3 (06:25→20:43)
[2018-05-10] MEDS: ONDANSETRON HCL 4MG/2ML INJ IV PRN (07:44)
[2018-05-10] MEDS: BUDESONIDE 0.5MG/2ML NEB HHN SCH (08:02)
[2018-05-10] MEDS: ASPIRIN 81MG EC TABLET PO SCH (08:11)
[2018-05-10] MEDS: INSULIN LISPRO 100 UNITS/ML SUBCUT SCH ×4 (08:22→20:46)
[2018-05-10] MEDS: ENOXAPARIN 30MG/0.3ML SYR SUBCUT SCH ×2 (08:29→09:00)
[2018-05-10 09:46] LABS: BASOPHILS % 0.6 % (0.0-2.0); EOSINOPHILS % 2.9 % (0.0-5.0); HEMATOCRIT. 37.8 % (36.0-48.0); HEMOGLOBIN. 11.7 g/dL (12.0-16.0); LYMPHOCYTES % 13.5 % (20.0-50.0); MEAN CORPUSCULAR HEMOGLOBIN 27.2 pg (28.0-32.0); MEAN CORPUSCULAR VOLUME 87.9 fL (81.0-99.0); MONOCYTES % 6.4 % (2.0-8.0); NEUTROPHILS % 76.6 % (40.0-76.0); PLATELET 363 x1000/uL (130-400); RED CELL DISTRIBUTION WIDTH 17.1 % (11.6-14.6)
[2018-05-10] MEDS: PANTOPRAZOLE SODIUM 40 MG/VIAL IV SCH (12:09)
[2018-05-10 16:18] LABS: CHLORIDE 97 mEq/L (98-107)
[2018-05-10 16:26] LABS: CREATINE KINASE 104 IU/L (26-192)
[2018-05-10 16:29] LABS: CREATINE KINASE MB FRACTION 1.8 ng/mL (0.5-3.6); T4 FREE 0.82 ng/dL (0.76-1.46)
[2018-05-10] MEDS ORDERED: HEPARIN SODIUM 1,000 UNIT/1ML VIAL IV NR (16:45)
[2018-05-10] MEDS ORDERED: DIPHENHYDRAMINE 50MG/ML VIAL IV NR (16:50)
[2018-05-10 23:58] LABS: CREATINE KINASE 114 IU/L (26-192)
[2018-05-10 23:59] LABS: CREATINE KINASE MB FRACTION 2.4 ng/mL (0.5-3.6)
[2018-05-11 00:50] VITALS: BP 131/95
[2018-05-11] MEDS: HYDROMORPHONE HCL/PF 2MG/ML CPJ IV PRN ×7 (01:37→22:08)
[2018-05-11] MEDS: LORAZEPAM 2MG/ML CPJ IV PRN ×2 (03:30→10:53)
[2018-05-11 04:00] VITALS: BP 127/88
[2018-05-11] MEDS: BLOOD SUGAR DIAGNOSTIC STRIP TEST SCH ×4 (06:41→20:24)
[2018-05-11 06:45] LABS: BASOPHILS % 0.7 % (0.0-2.0); HEMATOCRIT. 37.1 % (36.0-48.0); HEMOGLOBIN. 11.4 g/dL (12.0-16.0); LYMPHOCYTES % 17.6 % (20.0-50.0); MEAN CORPUSCULAR HEMOGLOBIN 26.7 pg (28.0-32.0); MEAN CORPUSCULAR VOLUME 86.8 fL (81.0-99.0); MEAN PLATELET VOLUME 7.5 fl (7.4-10.4); MONOCYTES % 6.7 % (2.0-8.0); PLATELET 454 x1000/uL (130-400); RED BLOOD CELL COUNT 4.27 mill/uL (4.2-5.4); RED CELL DISTRIBUTION WIDTH 16.7 % (11.6-14.6)
[2018-05-11 06:57] LABS: CHLORIDE 97 mEq/L (98-107)
[2018-05-11 07:25] LABS: CREATINE KINASE 142 IU/L (26-192)
[2018-05-11 07:27] LABS: CREATINE KINASE MB FRACTION 3.2 ng/mL (0.5-3.6)
[2018-05-11 08:00] VITALS: BP 114/72
[2018-05-11] MEDS: IPRATROPIUM/ALBUTEROL 0.5-3(2.5)MG/3ML NEB HHN SCH ×4 (08:00→20:00)
[2018-05-11] MEDS: BUDESONIDE 0.5MG/2ML NEB HHN SCH ×2 (08:01→20:25)
[2018-05-11] MEDS: PANTOPRAZOLE SODIUM 40 MG/VIAL IV SCH (08:07)
[2018-05-11] MEDS: ASPIRIN 81MG EC TABLET PO SCH (08:08)
[2018-05-11] MEDS: DIPHENHYDRAMINE 50MG/ML VIAL IV PRN ×3 (08:08→20:40)
[2018-05-11] MEDS: INSULIN LISPRO 100 UNITS/ML SUBCUT SCH ×4 (08:10→20:41)
[2018-05-11] MEDS ORDERED: LEVOFLOXACIN 250MG PREMIX 50 ML IV SCH (09:00)
[2018-05-11 12:00] VITALS: BP 114/58
[2018-05-11 16:00] VITALS: BP 114/72
[2018-05-12] VITALS: BP 120/42
[2018-05-12] MEDS: HYDROMORPHONE HCL/PF 2MG/ML CPJ IV PRN ×5 (00:49→16:15)
[2018-05-12] MEDS: DIPHENHYDRAMINE 50MG/ML VIAL IV PRN ×5 (01:50→17:03)
[2018-05-12 04:50] VITALS: BP 101/81
[2018-05-12] MEDS: BLOOD SUGAR DIAGNOSTIC STRIP TEST SCH ×2 (06:31→12:20)
[2018-05-12 07:19] LABS: BASOPHILS % 0.5 % (0.0-2.0); EOSINOPHILS % 3.8 % (0.0-5.0); HEMATOCRIT. 33.2 % (36.0-48.0); HEMOGLOBIN. 10.2 g/dL (12.0-16.0); LYMPHOCYTES % 15.3 % (20.0-50.0); MEAN CORPUSCULAR HEMOGLOBIN 26.6 pg (28.0-32.0); MEAN CORPUSCULAR VOLUME 86.6 fL (81.0-99.0); MEAN PLATELET VOLUME 7.4 fl (7.4-10.4); MONOCYTES % 7.2 % (2.0-8.0); NEUTROPHILS % 73.2 % (40.0-76.0); PLATELET 391 x1000/uL (130-400); RED BLOOD CELL COUNT 3.84 mill/uL (4.2-5.4); RED CELL DISTRIBUTION WIDTH 16.6 % (11.6-14.6)
[2018-05-12] MEDS: INSULIN LISPRO 100 UNITS/ML SUBCUT SCH ×2 (07:50→13:10)
[2018-05-12] MEDS: IPRATROPIUM/ALBUTEROL 0.5-3(2.5)MG/3ML NEB HHN SCH ×2 (08:00→16:24)
[2018-05-12] MEDS: ASPIRIN 81MG EC TABLET PO SCH (08:23)
[2018-05-12] MEDS: ENOXAPARIN 30MG/0.3ML SYR SUBCUT SCH (08:24)
[2018-05-12] MEDS: BUDESONIDE 0.5MG/2ML NEB HHN SCH (08:39)
[2018-05-12] MEDS ORDERED: FAMOTIDINE 20MG/2ML VIAL IV SCH (09:00)
[2018-05-12] MEDS: LORAZEPAM 2MG/ML CPJ IV PRN ×2 (10:31→15:01)
[2018-05-12] MEDS ORDERED: HEPARIN SODIUM 1,000 UNIT/1ML VIAL IV NR (11:00)
[2018-05-12 12:38] VITALS: BP 114/56
[2018-05-12 16:00] VITALS: BP 107/72
[2018-05-12 16:24] VITALS: BP 107/72
== END 2018-05-12 18:35 | disposition home or self-care (01) | DRG 291 ==
LOC: ER 05:33 → EDBEDREQ 06:44 → 6WST 08:12 → EDBEDREQ 08:15 → ENRESERV 08:18 → CANRESERV 08:18 → ENRESERV 12:52
PROVIDERS: ADMIT Internal Medicine; ATTEND Internal Medicine
PROC: 5A1D70Z Performance of Urinary Filtration, Intermittent, Less than 6 Hours Per Day (ICD-10-PCS; principal; 2018-05-09)
PROC: 5A1D70Z Performance of Urinary Filtration, Intermittent, Less than 6 Hours Per Day (ICD-10-PCS; 2018-05-10)
PROC: 5A1D70Z Performance of Urinary Filtration, Intermittent, Less than 6 Hours Per Day (ICD-10-PCS; 2018-05-12)
DX: I13.2 Hypertensive heart and chronic kidney disease with heart failure and with stage 5 chronic kidney disease, or end stage renal disease (principal); J96.21 Acute and chronic respiratory failure with hypoxia; N18.6 End stage renal disease; I50.33 Acute on chronic diastolic (congestive) heart failure; E11.319 Type 2 diabetes mellitus with unspecified diabetic retinopathy without macular edema; J20.9 Acute bronchitis, unspecified; E11.22 Type 2 diabetes mellitus with diabetic chronic kidney disease; E87.5 Hyperkalemia; E66.9 Obesity, unspecified; E78.5 Hyperlipidemia, unspecified; D64.9 Anemia, unspecified; E83.39 Other disorders of phosphorus metabolism; G62.9 Polyneuropathy, unspecified; I25.10 Atherosclerotic heart disease of native coronary artery without angina pectoris; Z89.512 Acquired absence of left leg below knee; Z99.2 Dependence on renal dialysis; H54.8 Legal blindness, as defined in USA; Z88.2 Allergy status to sulfonamides; Z88.0 Allergy status to penicillin; Z88.9 Allergy status to unspecified drugs, medicaments and biological substances; E11.51 Type 2 diabetes mellitus with diabetic peripheral angiopathy without gangrene; Z79.4 Long term (current) use of insulin; Z89.511 Acquired absence of right leg below knee; Z91.19 Patient's noncompliance with other medical treatment and regimen; Z68.35 Body mass index [BMI] 35.0-35.9, adult
CPT/HCPCS: 36415; 70100; 71045; 73560; 80048; 80061; 82550; 82553; 82962; 83036; 83605; 83735; 83880; 84100; 84439; 84443; 84484; 84703; 85379; 93005; 96374; 99285; C1893; C9113; J1170; J1200; J1644; J1650; J1815; J1956; J2060; J2405; J3490; J7620; J7626

== ENCOUNTER 2018-06-04 09:11 | Inpatient (IN) | payer MEDICARE, MEDICAID ==
[~2018-06-04] VITALS: Ht 165.1 cm; Wt 96.6 kg
[2018-06-04] MEDS: SODIUM CHLORIDE 0.9% INJ 3ML FLUSH IVF SCH ×2 (05:56→21:40)
[2018-06-04] MEDS ORDERED: NITROGLYCERIN OINT 1GM/INCH UDPKT TD ONE (10:00)
[2018-06-04] MEDS ORDERED: ASPIRIN 81MG TABLET PO ONE (10:00)
[2018-06-04 11:26] LABS: EOSINOPHILS % 2.1 % (0.0-5.0); HEMATOCRIT. 38.9 % (36.0-48.0); HEMOGLOBIN. 12.8 g/dL (12.0-16.0); LYMPHOCYTES % 9.1 % (20.0-50.0); MEAN CORPUSCULAR HEMOGLOBIN 28.7 pg (28.0-32.0); MEAN CORPUSCULAR VOLUME 87.5 fL (81.0-99.0); MONOCYTES % 4.1 % (2.0-8.0); NEUTROPHILS % 83.7 % (40.0-76.0); PLATELET 441 x1000/uL (130-400); RED BLOOD CELL COUNT 4.45 mill/uL (4.2-5.4); RED CELL DISTRIBUTION WIDTH 17.8 % (11.6-14.6)
[2018-06-04 11:36] LABS: INR 1.1; PARTIAL THROMBOPLASTIN TIME 28.6 sec (23.4-31.0); PROTHROMBIN TIME 10.6 sec (9.1-11.1)
[2018-06-04] MEDS ORDERED: DIPHENHYDRAMINE 50MG/ML VIAL IV ONE (11:45)
[2018-06-04] MEDS ORDERED: ONDANSETRON HCL 4MG/2ML INJ IV STA (11:45)
[2018-06-04] MEDS ORDERED: MORPHINE SULFATE 4 MG/ML CPJ (NOT FOR IM USE) IV STA (11:45)
[2018-06-04 11:51] LABS: CHLORIDE 94 mEq/L (98-107)
[2018-06-04] MEDS ORDERED: ONDANSETRON HCL 4MG/2ML INJ IV PRN (13:00)
[2018-06-04] MEDS ORDERED: GUAIFENESIN 200MG/10ML SUGAR FREE UDC PO PRN (13:00)
[2018-06-04] MEDS ORDERED: MAGNESIUM/ALUMINUM HYDROXIDE/SIMETHICONE 30ML UDC PO PRN (13:00)
[2018-06-04] MEDS ORDERED: DOCUSATE SODIUM 100MG CAPSULE PO PRN (13:00)
[2018-06-04] MEDS ORDERED: IPRATROPIUM/ALBUTEROL 0.5-3(2.5)MG/3ML NEB INH PRN (13:00)
[2018-06-04] MEDS ORDERED: HYDROCODONE/ACETAMINOPHEN 10/325MG TABLET PO PRN (13:00)
[2018-06-04] MEDS ORDERED: LORAZEPAM 2MG/ML CPJ IV PRN (13:00)
[2018-06-04] MEDS: ENOXAPARIN 40MG/0.4ML SYR SUBCUT SCH (13:00)
[2018-06-04] MEDS ORDERED: HYDRALAZINE 20MG/ML VIAL IV PRN (13:00)
[2018-06-04] MEDS ORDERED: CLONIDINE 0.1MG TABLET PO PRN (13:00)
[2018-06-04 15:00] VITALS: BP 142/71
[2018-06-04] MEDS: HYDROMORPHONE HCL/PF 2MG/ML CPJ IV PRN ×2 (15:41→21:39)
[2018-06-04 18:15] LABS: CREATINE KINASE 87 IU/L (26-192)
[2018-06-04 20:00] VITALS: BP 99/42
[2018-06-04] MEDS: ATORVASTATIN CALCIUM 20MG TABLET PO SCH (21:37)
[2018-06-04] MEDS: METOPROLOL TARTRATE 25MG TABLET PO SCH (21:37)
[2018-06-04] MEDS: DIPHENHYDRAMINE 50MG/ML VIAL IV PRN (21:39)
[2018-06-05] VITALS: BP 145/122
[2018-06-05] MEDS: HYDROMORPHONE HCL/PF 2MG/ML CPJ IV PRN ×6 (01:05→21:10)
[2018-06-05 01:47] LABS: CREATINE KINASE 64 IU/L (26-192)
[2018-06-05 01:48] LABS: CREATINE KINASE MB FRACTION 1.5 ng/mL (0.5-3.6)
[2018-06-05] MEDS: DIPHENHYDRAMINE 50MG/ML VIAL IV PRN ×3 (03:49→21:23)
[2018-06-05 04:00] VITALS: BP 144/86
[2018-06-05] MEDS: SODIUM CHLORIDE 0.9% INJ 3ML FLUSH IVF SCH ×3 (05:56→21:11)
[2018-06-05 06:45] LABS: BASOPHILS % 0.8 % (0.0-2.0); EOSINOPHILS % 2.9 % (0.0-5.0); HEMATOCRIT. 34.6 % (36.0-48.0); HEMOGLOBIN. 10.9 g/dL (12.0-16.0); LYMPHOCYTES % 15.4 % (20.0-50.0); MEAN CORPUSCULAR HEMOGLOBIN 27.7 pg (28.0-32.0); MEAN CORPUSCULAR VOLUME 87.7 fL (81.0-99.0); MEAN PLATELET VOLUME 7.2 fl (7.4-10.4); NEUTROPHILS % 71.9 % (40.0-76.0); PLATELET 415 x1000/uL (130-400); RED BLOOD CELL COUNT 3.94 mill/uL (4.2-5.4); RED CELL DISTRIBUTION WIDTH 18.1 % (11.6-14.6)
[2018-06-05 07:02] LABS: CHLORIDE 95 mEq/L (98-107)
[2018-06-05 07:22] LABS: LDL CHOLESTEROL 107 mg/dL (5-100)
[2018-06-05 07:23] LABS: HDL CHOLESTEROL 39 mg/dL (40-59)
[2018-06-05 07:24] LABS: T4 FREE 0.86 ng/dL (0.76-1.46)
[2018-06-05 08:00] VITALS: BP 155/98
[2018-06-05] MEDS: METOPROLOL TARTRATE 25MG TABLET PO SCH ×3 (09:00→21:00)
[2018-06-05] MEDS: DIPHENHYDRAMINE 50MG/ML VIAL IV NR ×2 (09:00→09:40)
[2018-06-05] MEDS: ASPIRIN 81MG EC TABLET PO SCH (09:41)
[2018-06-05] MEDS ORDERED: DEXTROSE 50% WATER 50ML SYRINGE IV PRN (11:15)
[2018-06-05] MEDS: BLOOD SUGAR DIAGNOSTIC STRIP TEST SCH ×3 (11:56→21:11)
[2018-06-05 12:13] VITALS: BP 102/54
[2018-06-05] MEDS: ENOXAPARIN 40MG/0.4ML SYR SUBCUT SCH ×2 (13:00→13:33)
[2018-06-05] MEDS: INSULIN LISPRO 100 UNITS/ML SUBCUT SCH ×3 (13:28→21:08)
[2018-06-05 16:00] VITALS: BP 101/85
[2018-06-05 20:00] VITALS: BP 104/83
[2018-06-05] MEDS: INSULIN GLARGINE UD 100 UNITS/ML SYR SUBCUT SCH (21:09)
[2018-06-05] MEDS: ATORVASTATIN CALCIUM 20MG TABLET PO SCH (21:10)
[2018-06-05] MEDS: BACITRACIN 15GM TUBE TOP SCH (21:11)
[2018-06-06] VITALS (9 sets, daily range): BP systolic 99–155; BP diastolic 40–132
[2018-06-06] MEDS: HYDROMORPHONE HCL/PF 2MG/ML CPJ IV PRN ×7 (00:25→22:33)
[2018-06-06] MEDS: DIPHENHYDRAMINE 50MG/ML VIAL IV PRN ×4 (03:42→23:15)
[2018-06-06] MEDS: SODIUM CHLORIDE 0.9% INJ 3ML FLUSH IVF SCH ×3 (06:00→22:00)
[2018-06-06] MEDS: BACITRACIN 15GM TUBE TOP SCH ×3 (06:00→22:34)
[2018-06-06] MEDS: BLOOD SUGAR DIAGNOSTIC STRIP TEST SCH ×4 (07:00→21:59)
[2018-06-06] MEDS: INSULIN LISPRO 100 UNITS/ML SUBCUT SCH ×4 (09:11→22:27)
[2018-06-06] MEDS: ASPIRIN 81MG EC TABLET PO SCH (09:12)
[2018-06-06] MEDS: METOPROLOL TARTRATE 25MG TABLET PO SCH ×3 (09:12→21:51)
[2018-06-06] MEDS ORDERED: HYDROMORPHONE HCL/PF 2MG/ML CPJ IV PRN (09:45)
[2018-06-06] MEDS: ENOXAPARIN 40MG/0.4ML SYR SUBCUT SCH (12:50)
[2018-06-06] MEDS: ATORVASTATIN CALCIUM 20MG TABLET PO SCH (21:50)
[2018-06-06] MEDS: INSULIN GLARGINE UD 100 UNITS/ML SYR SUBCUT SCH (22:29)
[2018-06-07] VITALS: BP 135/120
[2018-06-07] MEDS: HYDROMORPHONE HCL/PF 2MG/ML CPJ IV PRN ×10 (01:04→23:39)
[2018-06-07] MEDS: DIPHENHYDRAMINE 50MG/ML VIAL IV PRN ×4 (05:44→23:38)
[2018-06-07 06:00] VITALS: BP 104/78
[2018-06-07] MEDS: BACITRACIN 15GM TUBE TOP SCH ×3 (06:00→21:24)
[2018-06-07] MEDS: SODIUM CHLORIDE 0.9% INJ 3ML FLUSH IVF SCH ×3 (06:00→21:53)
[2018-06-07 06:43] LABS: BASOPHILS % 0.7 % (0.0-2.0); EOSINOPHILS % 2.8 % (0.0-5.0); HEMATOCRIT. 37.6 % (36.0-48.0); HEMOGLOBIN. 11.8 g/dL (12.0-16.0); LYMPHOCYTES % 19.7 % (20.0-50.0); MEAN CORPUSCULAR HEMOGLOBIN 27.6 pg (28.0-32.0); MEAN PLATELET VOLUME 7.3 fl (7.4-10.4); NEUTROPHILS % 68.8 % (40.0-76.0); PLATELET 392 x1000/uL (130-400); RED BLOOD CELL COUNT 4.27 mill/uL (4.2-5.4); RED CELL DISTRIBUTION WIDTH 17.4 % (11.6-14.6)
[2018-06-07] MEDS: BLOOD SUGAR DIAGNOSTIC STRIP TEST SCH ×5 (07:40→21:24)
[2018-06-07 08:00] VITALS: BP 98/42
[2018-06-07] MEDS: INSULIN LISPRO 100 UNITS/ML SUBCUT SCH ×4 (08:48→21:52)
[2018-06-07] MEDS: METOPROLOL TARTRATE 25MG TABLET PO SCH ×2 (08:49→21:24)
[2018-06-07] MEDS: ASPIRIN 81MG EC TABLET PO SCH (08:50)
[2018-06-07 12:00] VITALS: BP 106/62
[2018-06-07] MEDS: ENOXAPARIN 40MG/0.4ML SYR SUBCUT SCH (13:47)
[2018-06-07 16:00] VITALS: BP 126/55
[2018-06-07 20:00] VITALS: BP 112/88
[2018-06-07] MEDS: ATORVASTATIN CALCIUM 20MG TABLET PO SCH (21:24)
[2018-06-07] MEDS: INSULIN GLARGINE UD 100 UNITS/ML SYR SUBCUT SCH (21:29)
[2018-06-08] VITALS (7 sets, daily range): BP systolic 98–104; BP diastolic 52–73
[2018-06-08] MEDS: HYDROMORPHONE HCL/PF 2MG/ML CPJ IV PRN ×7 (01:53→19:34)
[2018-06-08] MEDS: DIPHENHYDRAMINE 50MG/ML VIAL IV PRN ×4 (04:03→19:26)
[2018-06-08] MEDS: SODIUM CHLORIDE 0.9% INJ 3ML FLUSH IVF SCH ×2 (05:50→13:39)
[2018-06-08] MEDS: BLOOD SUGAR DIAGNOSTIC STRIP TEST SCH ×3 (05:50→17:40)
[2018-06-08] MEDS: BACITRACIN 15GM TUBE TOP SCH ×2 (05:59→13:39)
[2018-06-08 07:13] LABS: BASOPHILS % 0.8 % (0.0-2.0); EOSINOPHILS % 4.1 % (0.0-5.0); HEMATOCRIT. 34.7 % (36.0-48.0); HEMOGLOBIN. 10.9 g/dL (12.0-16.0); LYMPHOCYTES % 19.2 % (20.0-50.0); MEAN CORPUSCULAR HEMOGLOBIN 27.7 pg (28.0-32.0); MEAN CORPUSCULAR VOLUME 88.2 fL (81.0-99.0); MEAN PLATELET VOLUME 7.3 fl (7.4-10.4); NEUTROPHILS % 65.9 % (40.0-76.0); PLATELET 354 x1000/uL (130-400); RED BLOOD CELL COUNT 3.94 mill/uL (4.2-5.4); RED CELL DISTRIBUTION WIDTH 17.3 % (11.6-14.6)
[2018-06-08] MEDS: ASPIRIN 81MG EC TABLET PO SCH (08:38)
[2018-06-08] MEDS: METOPROLOL TARTRATE 25MG TABLET PO SCH (08:38)
[2018-06-08] MEDS: INSULIN LISPRO 100 UNITS/ML SUBCUT SCH ×3 (08:43→18:33)
[2018-06-08] MEDS: ENOXAPARIN 40MG/0.4ML SYR SUBCUT SCH (13:00)
== END 2018-06-08 20:53 | disposition home or self-care (01) | DRG 205 ==
LOC: ER 09:11 → 7WST 12:19 → ENRESERV 13:48
PROVIDERS: ADMIT Internal Medicine; ATTEND Internal Medicine
PROC: 5A1D70Z Performance of Urinary Filtration, Intermittent, Less than 6 Hours Per Day (ICD-10-PCS; principal; 2018-06-05)
PROC: 5A1D70Z Performance of Urinary Filtration, Intermittent, Less than 6 Hours Per Day (ICD-10-PCS; 2018-06-07)
DX: M94.0 Chondrocostal junction syndrome [Tietze] (principal); N18.6 End stage renal disease; I42.9 Cardiomyopathy, unspecified; E87.2 Acidosis; E87.1 Hypo-osmolality and hyponatremia; E44.1 Mild protein-calorie malnutrition; L97.909 Non-pressure chronic ulcer of unspecified part of unspecified lower leg with unspecified severity; I13.11 Hypertensive heart and chronic kidney disease without heart failure, with stage 5 chronic kidney disease, or end stage renal disease; Z99.2 Dependence on renal dialysis; E11.22 Type 2 diabetes mellitus with diabetic chronic kidney disease; H54.8 Legal blindness, as defined in USA; D64.9 Anemia, unspecified; E11.40 Type 2 diabetes mellitus with diabetic neuropathy, unspecified; E11.319 Type 2 diabetes mellitus with unspecified diabetic retinopathy without macular edema; E11.51 Type 2 diabetes mellitus with diabetic peripheral angiopathy without gangrene; E11.622 Type 2 diabetes mellitus with other skin ulcer; R77.1 Abnormality of globulin; Z79.4 Long term (current) use of insulin; Z82.49 Family history of ischemic heart disease and other diseases of the circulatory system; Z83.3 Family history of diabetes mellitus; Z89.511 Acquired absence of right leg below knee; Z89.512 Acquired absence of left leg below knee; Z68.35 Body mass index [BMI] 35.0-35.9, adult; Z88.0 Allergy status to penicillin; Z88.1 Allergy status to other antibiotic agents; Z88.2 Allergy status to sulfonamides; Z88.6 Allergy status to analgesic agent; Z88.8 Allergy status to other drugs, medicaments and biological substances; Z79.899 Other long term (current) drug therapy
CPT/HCPCS: 36415; 71045; 80048; 80061; 82550; 82553; 82962; 83735; 83880; 84439; 84443; 84484; 93005; 96374; 99285; C1893; J0360; J1170; J1200; J1650; J1815; J2270

== ENCOUNTER 2018-06-25 09:21 | Inpatient (IN) | payer MEDICARE, MEDICAID ==
[~2018-06-25] VITALS: Ht 152.4 cm; Wt 109.3 kg
[2018-06-25 10:47] LABS: BASOPHILS % 0.2 % (0.0-2.0); EOSINOPHILS % 1.6 % (0.0-5.0); HEMATOCRIT. 37.2 % (36.0-48.0); LYMPHOCYTES % 13.1 % (20.0-50.0); MEAN CORPUSCULAR HEMOGLOBIN 28.4 pg (28.0-32.0); MEAN CORPUSCULAR VOLUME 88.3 fL (81.0-99.0); MEAN PLATELET VOLUME 7.4 fl (7.4-10.4); NEUTROPHILS % 77.1 % (40.0-76.0); PLATELET 396 x1000/uL (130-400); RED BLOOD CELL COUNT 4.21 mill/uL (4.2-5.4); RED CELL DISTRIBUTION WIDTH 17.2 % (11.6-14.6)
[2018-06-25 10:53] LABS: CHLORIDE 97 mEq/L (98-107); INR 1.1; PARTIAL THROMBOPLASTIN TIME 29.9 sec (23.4-31.0); PROTHROMBIN TIME 11.1 sec (9.1-11.1)
[2018-06-25] MEDS ORDERED: ALTEPLASE 2MG/VIAL ITC ONE (11:30)
[2018-06-25] MEDS ORDERED: NA PHOS,M-B/NA PHOS,DI-BA ENEMA 118ML PR PRN (12:15)
[2018-06-25] MEDS ORDERED: GUAIFENESIN 200MG/10ML SUGAR FREE UDC PO PRN (12:15)
[2018-06-25] MEDS ORDERED: ONDANSETRON HCL 4MG/2ML INJ IV PRN (12:15)
[2018-06-25] MEDS ORDERED: MAGNESIUM/ALUMINUM HYDROXIDE/SIMETHICONE 30ML UDC PO PRN (12:15)
[2018-06-25] MEDS ORDERED: CLONIDINE 0.1MG TABLET PO PRN (12:15)
[2018-06-25] MEDS ORDERED: DOCUSATE SODIUM 100MG CAPSULE PO PRN (12:15)
[2018-06-25] MEDS ORDERED: IPRATROPIUM/ALBUTEROL 0.5-3(2.5)MG/3ML NEB INH PRN (12:15)
[2018-06-25] MEDS ORDERED: HYDROMORPHONE HCL/PF 2MG/ML CPJ IV NR (14:45)
[2018-06-25] MEDS: DIPHENHYDRAMINE 50MG/ML VIAL IV PRN ×2 (17:30→20:05)
[2018-06-25 18:45] VITALS: BP 88/31
[2018-06-25 20:14] VITALS: BP 103/70
[2018-06-25] MEDS: ENOXAPARIN 30MG/0.3ML SYR SUBCUT SCH ×2 (20:30→21:55)
[2018-06-25 22:19] VITALS: BP 103/70
[2018-06-25] MEDS ORDERED: INFLUENZA VIRUS VACCINE(AFLURIA) 0.5ML SYR IM ONE (23:00)
[2018-06-26] VITALS: BP 115/53
[2018-06-26] MEDS: HYDROMORPHONE HCL/PF 2MG/ML CPJ IV PRN ×7 (01:10→21:32)
[2018-06-26] MEDS: DIPHENHYDRAMINE 50MG/ML VIAL IV PRN ×5 (01:11→21:32)
[2018-06-26 04:00] VITALS: BP 115/55
[2018-06-26] MEDS ORDERED: DIPHENHYDRAMINE 50MG/ML VIAL IV NR (06:00)
[2018-06-26 07:43] LABS: CHLORIDE 94 mEq/L (98-107)
[2018-06-26 07:48] LABS: HDL CHOLESTEROL 44 mg/dL (40-59); LDL CHOLESTEROL 126 mg/dL (5-100)
[2018-06-26 07:50] LABS: T4 FREE 0.85 ng/dL (0.76-1.46)
[2018-06-26 07:52] LABS: BASOPHILS % 0.6 % (0.0-2.0); EOSINOPHILS % 3.2 % (0.0-5.0); HEMATOCRIT. 34.4 % (36.0-48.0); HEMOGLOBIN. 10.7 g/dL (12.0-16.0); LYMPHOCYTES % 18.8 % (20.0-50.0); MEAN CORPUSCULAR HEMOGLOBIN 27.3 pg (28.0-32.0); MEAN CORPUSCULAR VOLUME 87.6 fL (81.0-99.0); MEAN PLATELET VOLUME 7.6 fl (7.4-10.4); MONOCYTES % 8.3 % (2.0-8.0); NEUTROPHILS % 69.1 % (40.0-76.0); PLATELET 430 x1000/uL (130-400); RED BLOOD CELL COUNT 3.92 mill/uL (4.2-5.4); RED CELL DISTRIBUTION WIDTH 16.7 % (11.6-14.6)
[2018-06-26 08:00] VITALS: BP 180/139
[2018-06-26] MEDS ORDERED: DEXTROSE 50% WATER 50ML SYRINGE IV PRN (10:30)
[2018-06-26 12:00] VITALS: BP 132/51
[2018-06-26] MEDS: BLOOD SUGAR DIAGNOSTIC STRIP TEST SCH ×3 (12:41→21:05)
[2018-06-26] MEDS: INSULIN LISPRO 100 UNITS/ML SUBCUT SCH ×3 (12:42→21:39)
[2018-06-26 16:44] VITALS: BP 142/101
[2018-06-26 18:16] LABS: CREATINE KINASE 46 IU/L (26-192)
[2018-06-26 18:17] LABS: CREATINE KINASE MB FRACTION 1.4 ng/mL (0.5-3.6)
[2018-06-26 18:22] LABS: T4 FREE 0.86 ng/dL (0.76-1.46)
[2018-06-26 20:00] VITALS: BP 101/80
[2018-06-27] MEDS: HYDROMORPHONE HCL/PF 2MG/ML CPJ IV PRN ×7 (00:49→22:58)
[2018-06-27 00:58] LABS: CREATINE KINASE 60 IU/L (26-192)
[2018-06-27 00:59] LABS: CREATINE KINASE MB FRACTION 1.8 ng/mL (0.5-3.6)
[2018-06-27] MEDS: DIPHENHYDRAMINE 50MG/ML VIAL IV PRN ×5 (01:54→21:38)
[2018-06-27 04:00] VITALS: BP 128/61
[2018-06-27] MEDS: BLOOD SUGAR DIAGNOSTIC STRIP TEST SCH ×4 (06:21→20:57)
[2018-06-27] MEDS: INSULIN LISPRO 100 UNITS/ML SUBCUT SCH ×4 (06:32→20:59)
[2018-06-27 07:11] LABS: BASOPHILS % 0.5 % (0.0-2.0); EOSINOPHILS % 3.6 % (0.0-5.0); HEMATOCRIT. 36.4 % (36.0-48.0); HEMOGLOBIN. 11.4 g/dL (12.0-16.0); LYMPHOCYTES % 18.2 % (20.0-50.0); MEAN CORPUSCULAR HEMOGLOBIN 27.6 pg (28.0-32.0); MEAN CORPUSCULAR VOLUME 88.5 fL (81.0-99.0); MEAN PLATELET VOLUME 7.3 fl (7.4-10.4); MONOCYTES % 6.3 % (2.0-8.0); NEUTROPHILS % 71.4 % (40.0-76.0); PLATELET 442 x1000/uL (130-400); RED BLOOD CELL COUNT 4.11 mill/uL (4.2-5.4); RED CELL DISTRIBUTION WIDTH 16.7 % (11.6-14.6)
[2018-06-27 07:46] LABS: CHLORIDE 92 mEq/L (98-107)
[2018-06-27 07:59] LABS: CREATINE KINASE 75 IU/L (26-192)
[2018-06-27 08:00] VITALS: BP 113/48
[2018-06-27] MEDS ORDERED: ALTEPLASE 2MG/VIAL ITC NR (08:00)
[2018-06-27 08:01] LABS: CREATINE KINASE MB FRACTION 2.3 ng/mL (0.5-3.6)
[2018-06-27 12:00] VITALS: BP 148/82
[2018-06-27] MEDS ORDERED: DIPHENHYDRAMINE 50MG/ML VIAL IV NR (12:45)
[2018-06-27 16:00] VITALS: BP 107/48
[2018-06-27 20:00] VITALS: BP 126/70
[2018-06-27] MEDS: ENOXAPARIN 30MG/0.3ML SYR SUBCUT SCH (20:30)
[2018-06-28] VITALS (17 sets, daily range): BP systolic 91–178; BP diastolic 64–110
[2018-06-28] MEDS: DIPHENHYDRAMINE 50MG/ML VIAL IV PRN ×6 (01:43→22:44)
[2018-06-28] MEDS: HYDROMORPHONE HCL/PF 2MG/ML CPJ IV PRN ×9 (02:53→22:44)
[2018-06-28] MEDS: BLOOD SUGAR DIAGNOSTIC STRIP TEST SCH ×4 (05:52→21:00)
[2018-06-28] MEDS: INSULIN LISPRO 100 UNITS/ML SUBCUT SCH ×4 (06:28→22:37)
[2018-06-28 08:14] LABS: EOSINOPHILS % 4.7 % (0.0-5.0); HEMATOCRIT. 34.4 % (36.0-48.0); HEMOGLOBIN. 10.8 g/dL (12.0-16.0); LYMPHOCYTES % 17.9 % (20.0-50.0); MEAN CORPUSCULAR HEMOGLOBIN 27.6 pg (28.0-32.0); MEAN CORPUSCULAR VOLUME 88.2 fL (81.0-99.0); MEAN PLATELET VOLUME 7.5 fl (7.4-10.4); MONOCYTES % 7.7 % (2.0-8.0); NEUTROPHILS % 68.7 % (40.0-76.0); PLATELET 393 x1000/uL (130-400); RED BLOOD CELL COUNT 3.91 mill/uL (4.2-5.4); RED CELL DISTRIBUTION WIDTH 16.6 % (11.6-14.6)
[2018-06-28] MEDS ORDERED: DIPHENHYDRAMINE 50MG/ML VIAL IV PRN (09:00)
[2018-06-28 09:53] LABS: PARTIAL THROMBOPLASTIN TIME 28.9 sec (23.4-31.0); PROTHROMBIN TIME 10.4 sec (9.1-11.1)
[2018-06-28] MEDS ORDERED: CLINDAMYCIN 600 MG in DEXTROSE 5% WATER 50 ML IV ONE (11:00)
[2018-06-28] MEDS ORDERED: LIDOCAINE HCL 1% 20ML VIAL (Pyxis) INJ ONE (13:02)
[2018-06-28] MEDS ORDERED: SODIUM BICARBONATE 4% (2.4MEQ) 5ML VIAL IV ONE (13:02)
[2018-06-28] MEDS ORDERED: FENTANYL CITRATE/PF 50MCG/ML 2ML VIAL ONE (13:02)
[2018-06-28] MEDS ORDERED: HEPARIN 1000 UNITS/ML 10ML ONE (13:03)
[2018-06-28] MEDS ORDERED: FENTANYL CITRATE/PF 50MCG/ML 2ML VIAL IV ONE (13:45)
[2018-06-28] MEDS ORDERED: FENTANYL CITRATE/PF 50MCG/ML 2ML VIAL IV SCH (14:00)
[2018-06-28] MEDS: ENOXAPARIN 30MG/0.3ML SYR SUBCUT SCH (20:30)
[2018-06-29] VITALS: BP 104/75
[2018-06-29] MEDS ORDERED: HEPARIN SODIUM 1,000 UNIT/1ML VIAL IV SCH
[2018-06-29] MEDS: DIPHENHYDRAMINE 50MG/ML VIAL IV PRN ×5 (03:26→23:31)
[2018-06-29] MEDS: HYDROMORPHONE HCL/PF 2MG/ML CPJ IV PRN ×8 (03:26→21:59)
[2018-06-29 04:00] VITALS: BP 91/51
[2018-06-29] MEDS: BLOOD SUGAR DIAGNOSTIC STRIP TEST SCH ×4 (06:41→21:00)
[2018-06-29] MEDS: INSULIN LISPRO 100 UNITS/ML SUBCUT SCH ×4 (06:47→22:10)
[2018-06-29 07:04] LABS: BASOPHILS % 0.6 % (0.0-2.0); EOSINOPHILS % 3.6 % (0.0-5.0); HEMATOCRIT. 36.4 % (36.0-48.0); HEMOGLOBIN. 11.2 g/dL (12.0-16.0); LYMPHOCYTES % 10.8 % (20.0-50.0); MEAN CORPUSCULAR HEMOGLOBIN 27.3 pg (28.0-32.0); MEAN CORPUSCULAR VOLUME 88.9 fL (81.0-99.0); MEAN PLATELET VOLUME 7.6 fl (7.4-10.4); MONOCYTES % 4.8 % (2.0-8.0); NEUTROPHILS % 80.2 % (40.0-76.0); PLATELET 352 x1000/uL (130-400); RED BLOOD CELL COUNT 4.09 mill/uL (4.2-5.4); RED CELL DISTRIBUTION WIDTH 16.6 % (11.6-14.6)
[2018-06-29 08:00] VITALS: BP 137/100
[2018-06-29 12:00] VITALS: BP_SYST 110; BP_SYST 114; BP_DIAS 62; BP_DIAS 74
[2018-06-29 16:00] VITALS: BP 139/73
[2018-06-29 20:00] VITALS: BP 108/80
[2018-06-29] MEDS: ENOXAPARIN 30MG/0.3ML SYR SUBCUT SCH (22:08)
[2018-06-30] VITALS (7 sets, daily range): BP systolic 108–140; BP diastolic 58–112
[2018-06-30] MEDS: HYDROMORPHONE HCL/PF 2MG/ML CPJ IV PRN ×7 (02:04→18:46)
[2018-06-30] MEDS: DIPHENHYDRAMINE 50MG/ML VIAL IV PRN ×4 (04:19→16:17)
[2018-06-30] MEDS: INSULIN LISPRO 100 UNITS/ML SUBCUT SCH ×4 (06:48→20:33)
[2018-06-30] MEDS: BLOOD SUGAR DIAGNOSTIC STRIP TEST SCH ×4 (06:58→20:33)
[2018-06-30 07:04] LABS: BASOPHILS % 0.4 % (0.0-2.0); EOSINOPHILS % 5.2 % (0.0-5.0); HEMATOCRIT. 33.6 % (36.0-48.0); HEMOGLOBIN. 10.5 g/dL (12.0-16.0); LYMPHOCYTES % 14.8 % (20.0-50.0); MEAN CORPUSCULAR HEMOGLOBIN 27.3 pg (28.0-32.0); MEAN CORPUSCULAR VOLUME 87.5 fL (81.0-99.0); MEAN PLATELET VOLUME 7.8 fl (7.4-10.4); MONOCYTES % 7.5 % (2.0-8.0); NEUTROPHILS % 72.1 % (40.0-76.0); PLATELET 305 x1000/uL (130-400); RED BLOOD CELL COUNT 3.84 mill/uL (4.2-5.4); RED CELL DISTRIBUTION WIDTH 16.5 % (11.6-14.6)
[2018-06-30] MEDS: ENOXAPARIN 30MG/0.3ML SYR SUBCUT SCH (20:29)
== END 2018-06-30 22:05 | disposition home or self-care (01) | DRG 286 ==
LOC: ER 09:26 → 8WST 12:04 → EDBEDREQ 12:10 → ENRESERV 15:30
PROVIDERS: ADMIT Internal Medicine; ATTEND Internal Medicine
PROC: 5A1D70Z Performance of Urinary Filtration, Intermittent, Less than 6 Hours Per Day (ICD-10-PCS; 2018-06-25)
PROC: 5A1D70Z Performance of Urinary Filtration, Intermittent, Less than 6 Hours Per Day (ICD-10-PCS; 2018-06-26)
PROC: 5A1D70Z Performance of Urinary Filtration, Intermittent, Less than 6 Hours Per Day (ICD-10-PCS; 2018-06-27)
PROC: 0JH63XZ Insertion of Tunneled Vascular Access Device into Chest Subcutaneous Tissue and Fascia, Percutaneous Approach (ICD-10-PCS; principal; 2018-06-28)
PROC: B2141ZZ Fluoroscopy of Right Heart using Low Osmolar Contrast (ICD-10-PCS; 2018-06-28)
PROC: 02PYX3Z Removal of Infusion Device from Great Vessel, External Approach (ICD-10-PCS; 2018-06-28)
PROC: 02H633Z Insertion of Infusion Device into Right Atrium, Percutaneous Approach (ICD-10-PCS; 2018-06-28)
PROC: 5A1D70Z Performance of Urinary Filtration, Intermittent, Less than 6 Hours Per Day (ICD-10-PCS; 2018-06-28)
PROC: 5A1D70Z Performance of Urinary Filtration, Intermittent, Less than 6 Hours Per Day (ICD-10-PCS; 2018-06-29)
DX: T82.49XA Other complication of vascular dialysis catheter, initial encounter (principal); N18.6 End stage renal disease; E87.1 Hypo-osmolality and hyponatremia; I13.2 Hypertensive heart and chronic kidney disease with heart failure and with stage 5 chronic kidney disease, or end stage renal disease; Y83.8 Other surgical procedures as the cause of abnormal reaction of the patient, or of later complication, without mention of misadventure at the time of the procedure; E11.22 Type 2 diabetes mellitus with diabetic chronic kidney disease; E11.65 Type 2 diabetes mellitus with hyperglycemia; N28.9 Disorder of kidney and ureter, unspecified; I25.10 Atherosclerotic heart disease of native coronary artery without angina pectoris; K59.00 Constipation, unspecified; I50.9 Heart failure, unspecified; G89.29 Other chronic pain; E78.5 Hyperlipidemia, unspecified; E83.39 Other disorders of phosphorus metabolism; D72.829 Elevated white blood cell count, unspecified; R07.89 Other chest pain; E11.51 Type 2 diabetes mellitus with diabetic peripheral angiopathy without gangrene; E11.319 Type 2 diabetes mellitus with unspecified diabetic retinopathy without macular edema; H54.7 Unspecified visual loss; Z99.2 Dependence on renal dialysis; Z89.511 Acquired absence of right leg below knee; Z89.512 Acquired absence of left leg below knee; Z79.899 Other long term (current) drug therapy; Z79.4 Long term (current) use of insulin; Y92.89 Other specified places as the place of occurrence of the external cause
CPT/HCPCS: 36415; 36581; 71045; 77001; 80048; 80061; 82550; 82553; 82962; 83036; 83880; 84439; 84443; 84484; 85379; 93005; 96374; 96375; 97162; 99285; C1750; C1893; J1170; J1200; J1644; J1650; J1815; J2997; J3010; J3490; J7050; J7060

== ENCOUNTER 2018-07-15 09:06 | Inpatient (IN) | payer MEDICARE, MEDICAID ==
[~2018-07-15] VITALS: Ht 160 cm; Wt 95.7 kg
[2018-07-15] MEDS ORDERED: MORPHINE SULFATE 4 MG/ML CPJ (NOT FOR IM USE) IV STA (09:45)
[2018-07-15] MEDS ORDERED: DIPHENHYDRAMINE 50MG/ML VIAL IV ONE ×2 (09:45→11:00)
[2018-07-15 10:07] LABS: BASOPHILS % 0.9 % (0.0-2.0); EOSINOPHILS % 4.5 % (0.0-5.0); HEMATOCRIT. 33.4 % (36.0-48.0); HEMOGLOBIN. 10.4 g/dL (12.0-16.0); LYMPHOCYTES % 13.3 % (20.0-50.0); MEAN CORPUSCULAR HEMOGLOBIN 26.9 pg (28.0-32.0); MEAN CORPUSCULAR VOLUME 86.4 fL (81.0-99.0); MEAN PLATELET VOLUME 7.3 fl (7.4-10.4); MONOCYTES % 5.1 % (2.0-8.0); NEUTROPHILS % 76.2 % (40.0-76.0); PLATELET 357 x1000/uL (130-400); RED BLOOD CELL COUNT 3.86 mill/uL (4.2-5.4); RED CELL DISTRIBUTION WIDTH 16.7 % (11.6-14.6)
[2018-07-15 10:10] LABS: CHLORIDE 98 mEq/L (98-107)
[2018-07-15] MEDS ORDERED: MAGNESIUM/ALUMINUM HYDROXIDE/SIMETHICONE 30ML UDC PO PRN (11:00)
[2018-07-15] MEDS ORDERED: NA PHOS,M-B/NA PHOS,DI-BA ENEMA 118ML PR PRN (11:00)
[2018-07-15] MEDS ORDERED: ONDANSETRON HCL 4MG/2ML INJ IV PRN (11:00)
[2018-07-15] MEDS ORDERED: GUAIFENESIN 200MG/10ML SUGAR FREE UDC PO PRN (11:00)
[2018-07-15] MEDS ORDERED: LORAZEPAM 2MG/ML CPJ IV PRN (11:00)
[2018-07-15] MEDS ORDERED: CLONIDINE 0.1MG TABLET PO PRN (11:00)
[2018-07-15] MEDS ORDERED: DOCUSATE SODIUM 100MG CAPSULE PO PRN (11:00)
[2018-07-15] MEDS ORDERED: HYDROMORPHONE HCL/PF 2MG/ML CPJ IV PRN (11:00)
[2018-07-15] MEDS ORDERED: AMLODIPINE 2.5MG TABLET PO ONE (12:15)
[2018-07-15] MEDS ORDERED: HYDROMORPHONE HCL/PF 2MG/ML CPJ IV NR (15:45)
[2018-07-15 23:59] VITALS: BP 148/63
[2018-07-16] MEDS: HYDROMORPHONE HCL/PF 2MG/ML CPJ IV PRN ×5 (00:27→17:52)
[2018-07-16 04:00] VITALS: BP 151/70
[2018-07-16] MEDS: DIPHENHYDRAMINE 50MG/ML VIAL IV PRN ×3 (05:40→19:00)
[2018-07-16 07:37] LABS: BASOPHILS % 0.4 % (0.0-2.0); EOSINOPHILS % 4.1 % (0.0-5.0); HEMATOCRIT. 35.4 % (36.0-48.0); LYMPHOCYTES % 13.2 % (20.0-50.0); MEAN CORPUSCULAR HEMOGLOBIN 27.6 pg (28.0-32.0); MEAN CORPUSCULAR VOLUME 88.9 fL (81.0-99.0); MEAN PLATELET VOLUME 7.9 fl (7.4-10.4); MONOCYTES % 4.4 % (2.0-8.0); NEUTROPHILS % 77.9 % (40.0-76.0); PLATELET 382 x1000/uL (130-400); RED BLOOD CELL COUNT 3.98 mill/uL (4.2-5.4); RED CELL DISTRIBUTION WIDTH 16.8 % (11.6-14.6)
[2018-07-16 07:58] LABS: CHLORIDE 98 mEq/L (98-107)
[2018-07-16 08:07] LABS: LDL CHOLESTEROL 145 mg/dL (5-100)
[2018-07-16 08:08] LABS: HDL CHOLESTEROL 52 mg/dL (40-59)
[2018-07-16] MEDS ORDERED: PANTOPRAZOLE SODIUM 40 MG/VIAL IV SCH (08:20)
[2018-07-16] MEDS ORDERED: DIPHENHYDRAMINE 50MG/ML VIAL IV SCH ×3 (08:30→14:30)
[2018-07-16] MEDS: ASPIRIN 81MG EC TABLET PO SCH (08:49)
[2018-07-16] MEDS: ENOXAPARIN 30MG/0.3ML SYR SUBCUT SCH ×2 (08:49→08:57)
[2018-07-16] MEDS: SEVELAMER CARBONATE 800 MG TABLET PO SCH ×3 (08:49→17:52)
[2018-07-16] MEDS: FOLIC ACID/VITAMIN B COMP W-C TABLET PO SCH (08:49)
[2018-07-16] MEDS: AMLODIPINE 2.5MG TABLET PO SCH (08:54)
[2018-07-16 08:56] VITALS: BP 105/41
[2018-07-16] MEDS ORDERED: DEXTROSE 50% WATER 50ML SYRINGE IV PRN (09:15)
[2018-07-16] MEDS: BLOOD SUGAR DIAGNOSTIC STRIP TEST SCH ×3 (12:18→20:53)
[2018-07-16 12:27] VITALS: BP 124/60
[2018-07-16] MEDS: INSULIN LISPRO 100 UNITS/ML SUBCUT SCH ×3 (12:52→21:02)
[2018-07-16] MEDS ORDERED: HEPARIN SODIUM 1,000 UNIT/1ML VIAL IV NR (16:00)
[2018-07-16 16:37] VITALS: BP 157/72
[2018-07-16 19:59] VITALS: BP 124/49
[2018-07-17] VITALS: BP 124/61
[2018-07-17] MEDS: DIPHENHYDRAMINE 50MG/ML VIAL IV PRN ×5 (00:26→21:38)
[2018-07-17] MEDS: HYDROMORPHONE HCL/PF 2MG/ML CPJ IV PRN ×4 (00:27→19:54)
[2018-07-17 04:49] VITALS: BP 125/99
[2018-07-17] MEDS: BLOOD SUGAR DIAGNOSTIC STRIP TEST SCH ×4 (06:25→19:54)
[2018-07-17 06:47] LABS: BASOPHILS % 0.5 % (0.0-2.0); EOSINOPHILS % 4.3 % (0.0-5.0); HEMATOCRIT. 31.6 % (36.0-48.0); HEMOGLOBIN. 9.8 g/dL (12.0-16.0); LYMPHOCYTES % 15.9 % (20.0-50.0); MEAN CORPUSCULAR HEMOGLOBIN 27.4 pg (28.0-32.0); MEAN PLATELET VOLUME 7.8 fl (7.4-10.4); MONOCYTES % 7.3 % (2.0-8.0); PLATELET 324 x1000/uL (130-400); RED BLOOD CELL COUNT 3.59 mill/uL (4.2-5.4); RED CELL DISTRIBUTION WIDTH 16.7 % (11.6-14.6)
[2018-07-17] MEDS ORDERED: DIPHENHYDRAMINE 50MG/ML VIAL IV SCH (07:45)
[2018-07-17] MEDS: SEVELAMER CARBONATE 800 MG TABLET PO SCH ×3 (07:50→17:29)
[2018-07-17 08:00] VITALS: BP 104/72
[2018-07-17] MEDS: INSULIN LISPRO 100 UNITS/ML SUBCUT SCH ×4 (08:11→21:42)
[2018-07-17 08:15] LABS: CHLORIDE 99 mEq/L (98-107)
[2018-07-17] MEDS: ASPIRIN 81MG EC TABLET PO SCH (09:00)
[2018-07-17] MEDS: AMLODIPINE 2.5MG TABLET PO SCH (09:00)
[2018-07-17] MEDS: ENOXAPARIN 30MG/0.3ML SYR SUBCUT SCH (09:00)
[2018-07-17 12:00] VITALS: BP 115/69
[2018-07-17] MEDS: PANTOPRAZOLE SODIUM 40 MG/VIAL IV SCH (13:20)
[2018-07-17] MEDS: FOLIC ACID/VITAMIN B COMP W-C TABLET PO SCH (13:20)
[2018-07-17 15:58] VITALS: BP 97/41
[2018-07-17 20:22] VITALS: BP 116/68
[2018-07-17] MEDS: IPRATROPIUM/ALBUTEROL 0.5-3(2.5)MG/3ML NEB INH PRN (21:02)
[2018-07-18 00:45] VITALS: BP 108/59
[2018-07-18] MEDS: HYDROMORPHONE HCL/PF 2MG/ML CPJ IV PRN ×3 (02:14→13:58)
[2018-07-18] MEDS: DIPHENHYDRAMINE 50MG/ML VIAL IV PRN ×4 (02:23→14:21)
[2018-07-18 04:50] VITALS: BP 111/61
[2018-07-18] MEDS: BLOOD SUGAR DIAGNOSTIC STRIP TEST SCH ×2 (06:14→13:07)
[2018-07-18 06:34] LABS: BASOPHILS % 0.8 % (0.0-2.0); EOSINOPHILS % 5.3 % (0.0-5.0); HEMOGLOBIN. 9.9 g/dL (12.0-16.0); LYMPHOCYTES % 18.4 % (20.0-50.0); MEAN CORPUSCULAR VOLUME 87.2 fL (81.0-99.0); MEAN PLATELET VOLUME 7.7 fl (7.4-10.4); MONOCYTES % 6.6 % (2.0-8.0); NEUTROPHILS % 68.9 % (40.0-76.0); PLATELET 332 x1000/uL (130-400); RED BLOOD CELL COUNT 3.55 mill/uL (4.2-5.4); RED CELL DISTRIBUTION WIDTH 16.8 % (11.6-14.6)
[2018-07-18] MEDS: PANTOPRAZOLE SODIUM 40 MG/VIAL IV SCH (08:17)
[2018-07-18] MEDS: ASPIRIN 81MG EC TABLET PO SCH (08:17)
[2018-07-18] MEDS: FOLIC ACID/VITAMIN B COMP W-C TABLET PO SCH (08:17)
[2018-07-18] MEDS: SEVELAMER CARBONATE 800 MG TABLET PO SCH ×2 (08:17→13:08)
[2018-07-18] MEDS: AMLODIPINE 2.5MG TABLET PO SCH (08:19)
[2018-07-18] MEDS: ENOXAPARIN 30MG/0.3ML SYR SUBCUT SCH (08:19)
[2018-07-18] MEDS: INSULIN LISPRO 100 UNITS/ML SUBCUT SCH ×2 (08:23→13:14)
[2018-07-18] MEDS: IPRATROPIUM/ALBUTEROL 0.5-3(2.5)MG/3ML NEB INH PRN (08:35)
[2018-07-18 12:13] VITALS: BP 159/60
[2018-07-18 13:58] VITALS: BP 120/72
== END 2018-07-18 16:30 | disposition home or self-care (01) | DRG 291 ==
LOC: ER 09:06 → 6WST 10:47 → EDBEDREQ 10:50 → ENRESERV 21:15
PROVIDERS: ADMIT Internal Medicine; ATTEND Internal Medicine
PROC: 5A1D70Z Performance of Urinary Filtration, Intermittent, Less than 6 Hours Per Day (ICD-10-PCS; principal; 2018-07-15)
PROC: 5A1D70Z Performance of Urinary Filtration, Intermittent, Less than 6 Hours Per Day (ICD-10-PCS; 2018-07-16)
PROC: 5A1D70Z Performance of Urinary Filtration, Intermittent, Less than 6 Hours Per Day (ICD-10-PCS; 2018-07-17)
PROC: 5A1D70Z Performance of Urinary Filtration, Intermittent, Less than 6 Hours Per Day (ICD-10-PCS; 2018-07-18)
DX: I13.2 Hypertensive heart and chronic kidney disease with heart failure and with stage 5 chronic kidney disease, or end stage renal disease (principal); I50.43 Acute on chronic combined systolic (congestive) and diastolic (congestive) heart failure; J96.00 Acute respiratory failure, unspecified whether with hypoxia or hypercapnia; N18.6 End stage renal disease; E46 Unspecified protein-calorie malnutrition; D64.9 Anemia, unspecified; I42.9 Cardiomyopathy, unspecified; D72.829 Elevated white blood cell count, unspecified; E11.22 Type 2 diabetes mellitus with diabetic chronic kidney disease; E11.319 Type 2 diabetes mellitus with unspecified diabetic retinopathy without macular edema; E11.51 Type 2 diabetes mellitus with diabetic peripheral angiopathy without gangrene; E66.09 Other obesity due to excess calories; E11.42 Type 2 diabetes mellitus with diabetic polyneuropathy; E78.5 Hyperlipidemia, unspecified; E87.5 Hyperkalemia; H54.8 Legal blindness, as defined in USA; I25.10 Atherosclerotic heart disease of native coronary artery without angina pectoris; K21.9 Gastro-esophageal reflux disease without esophagitis; Z79.4 Long term (current) use of insulin; Z79.899 Other long term (current) drug therapy; Z89.511 Acquired absence of right leg below knee; Z89.512 Acquired absence of left leg below knee; Z99.2 Dependence on renal dialysis; Z88.1 Allergy status to other antibiotic agents; Z88.2 Allergy status to sulfonamides; Z88.0 Allergy status to penicillin; Z88.6 Allergy status to analgesic agent; Z88.8 Allergy status to other drugs, medicaments and biological substances; Z68.37 Body mass index [BMI] 37.0-37.9, adult
CPT/HCPCS: 36415; 71045; 80048; 80061; 82962; 83880; 84439; 84443; 84484; 93005; 93306; 93308; 94640; 96374; 96375; 99285; C1893; C9113; J1170; J1200; J1644; J1650; J1815; J2270; J2405; J7620

== ENCOUNTER 2018-08-15 03:43 | Inpatient (IN) | payer MEDICARE, MEDICAID ==
[~2018-08-15] VITALS: Ht 160 cm; Wt 97.2 kg
[2018-08-15] MEDS ORDERED: ONDANSETRON HCL 4MG/2ML INJ IV STA (04:59)
[2018-08-15] MEDS ORDERED: MORPHINE SULFATE 4 MG/ML CPJ (NOT FOR IM USE) IV STA (04:59)
[2018-08-15] MEDS ORDERED: DIPHENHYDRAMINE 50MG/ML VIAL IV ONE (05:00)
[2018-08-15 05:43] LABS: CHLORIDE 96 mEq/L (98-107)
[2018-08-15 05:45] LABS: BASOPHILS % 0.9 % (0.0-2.0); EOSINOPHILS % 3.7 % (0.0-5.0); HEMOGLOBIN. 13.2 g/dL (12.0-16.0); LYMPHOCYTES % 17.9 % (20.0-50.0); MEAN CORPUSCULAR HEMOGLOBIN 28.2 pg (28.0-32.0); MEAN CORPUSCULAR VOLUME 87.9 fL (81.0-99.0); MEAN PLATELET VOLUME 7.6 fl (7.4-10.4); NEUTROPHILS % 71.5 % (40.0-76.0); PLATELET 391 x1000/uL (130-400); RED BLOOD CELL COUNT 4.66 mill/uL (4.2-5.4); RED CELL DISTRIBUTION WIDTH 17.1 % (11.6-14.6)
[2018-08-15] MEDS ORDERED: INSULIN REGULAR (HUMULIN R) 300UNITS/3ML IV ONE (06:00)
[2018-08-15] MEDS ORDERED: CLONIDINE 0.1MG TABLET PO PRN (06:00)
[2018-08-15] MEDS ORDERED: ONDANSETRON HCL 4MG/2ML INJ IV PRN (06:00)
[2018-08-15] MEDS ORDERED: LORAZEPAM 2MG/ML CPJ IV PRN (06:00)
[2018-08-15] MEDS ORDERED: DEXTROSE 50% WATER 50ML SYRINGE IV ONE (06:00)
[2018-08-15] MEDS ORDERED: GUAIFENESIN 200MG/10ML SUGAR FREE UDC PO PRN (06:00)
[2018-08-15] MEDS ORDERED: SODIUM POLYSTYRENE SULFONATE 15 G/60 ML BOT PO ONE (06:00)
[2018-08-15] MEDS ORDERED: SODIUM BICARBONATE 8.4% 1 MEQ/ML 50ML SYR IV ONE (06:00)
[2018-08-15] MEDS ORDERED: NA PHOS,M-B/NA PHOS,DI-BA ENEMA 118ML PR PRN (06:00)
[2018-08-15] MEDS ORDERED: DOCUSATE SODIUM 100MG CAPSULE PO PRN (06:00)
[2018-08-15 08:33] LABS: PARTIAL THROMBOPLASTIN TIME 28.2 sec (23.4-31.0); PROTHROMBIN TIME 10.4 sec (9.6-11.0)
[2018-08-15] MEDS ORDERED: DIPHENHYDRAMINE 50MG/ML VIAL IV SCH (09:15)
[2018-08-15] MEDS: ENOXAPARIN 40MG/0.4ML SYR SUBCUT SCH (09:30)
[2018-08-15] MEDS: DIPHENHYDRAMINE 50MG/ML VIAL IV PRN ×2 (09:59→14:31)
[2018-08-15] MEDS: HYDROMORPHONE HCL/PF 2MG/ML CPJ IV PRN ×4 (10:01→22:51)
[2018-08-15] MEDS ORDERED: SODIUM BICARBONATE 4% (2.4MEQ) 5ML VIAL IV ONE (10:07)
[2018-08-15] MEDS ORDERED: LIDOCAINE HCL 1% 20ML VIAL (Pyxis) INJ ONE (10:07)
[2018-08-15] MEDS ORDERED: IOHEXOL-300 50 ML BOTTLE IV ONE (10:08)
[2018-08-15 10:45] VITALS: BP 134/116
[2018-08-15 10:55] VITALS: BP_SYST 120; BP_SYST 134; BP_DIAS 111; BP_DIAS 99
[2018-08-15 11:00] VITALS: BP 148/69
[2018-08-15 11:11] VITALS: BP 148/69
[2018-08-15] MEDS ORDERED: CLINDAMYCIN 600 MG in DEXTROSE 5% WATER 50 ML IV ONE (11:30)
[2018-08-15 12:00] VITALS: BP 115/66
[2018-08-15] MEDS ORDERED: DEXTROSE 50% WATER 50ML SYRINGE IV PRN ×2 (12:45)
[2018-08-15] MEDS: INSULIN LISPRO 100 UNITS/ML SUBCUT SCH ×3 (13:18→21:13)
[2018-08-15] MEDS: CLINDAMYCIN 600MG PREMIX 50 ML IV NR ×2 (14:32→17:43)
[2018-08-15] MEDS ORDERED: DIPHENHYDRAMINE 50MG/ML VIAL IV NR (16:30)
[2018-08-15] MEDS: BLOOD SUGAR DIAGNOSTIC STRIP TEST SCH ×2 (17:43→21:00)
[2018-08-15] MEDS: ASPIRIN 81MG EC TABLET PO SCH (17:43)
[2018-08-15 20:00] VITALS: BP 95/54
[2018-08-16] VITALS: BP 98/58
[2018-08-16] MEDS: HYDROMORPHONE HCL/PF 2MG/ML CPJ IV PRN ×6 (02:27→23:43)
[2018-08-16] MEDS: DIPHENHYDRAMINE 50MG/ML VIAL IV PRN ×5 (02:28→23:43)
[2018-08-16 04:00] VITALS: BP 108/67
[2018-08-16] MEDS: BLOOD SUGAR DIAGNOSTIC STRIP TEST SCH ×4 (06:25→20:22)
[2018-08-16] MEDS: INSULIN LISPRO 100 UNITS/ML SUBCUT SCH ×4 (06:40→20:28)
[2018-08-16] MEDS: MAGNESIUM/ALUMINUM HYDROXIDE/SIMETHICONE 30ML UDC PO PRN (07:34)
[2018-08-16 07:35] VITALS: BP 121/73
[2018-08-16] MEDS: ENOXAPARIN 40MG/0.4ML SYR SUBCUT SCH (08:17)
[2018-08-16] MEDS: ASPIRIN 81MG EC TABLET PO SCH (08:20)
[2018-08-16] MEDS ORDERED: DIPHENHYDRAMINE 50MG/ML VIAL IV NR (09:15)
[2018-08-16 09:32] LABS: BASOPHILS % 0.5 % (0.0-2.0); EOSINOPHILS % 2.8 % (0.0-5.0); HEMATOCRIT. 37.8 % (36.0-48.0); HEMOGLOBIN. 11.7 g/dL (12.0-16.0); LYMPHOCYTES % 14.2 % (20.0-50.0); MEAN CORPUSCULAR HEMOGLOBIN 27.4 pg (28.0-32.0); MEAN CORPUSCULAR VOLUME 88.4 fL (81.0-99.0); MEAN PLATELET VOLUME 7.8 fl (7.4-10.4); MONOCYTES % 7.4 % (2.0-8.0); NEUTROPHILS % 75.1 % (40.0-76.0); PLATELET 368 x1000/uL (130-400); RED BLOOD CELL COUNT 4.27 mill/uL (4.2-5.4); RED CELL DISTRIBUTION WIDTH 17.1 % (11.6-14.6)
[2018-08-16 09:42] LABS: CHLORIDE 97 mEq/L (98-107)
[2018-08-16 09:49] LABS: LDL CHOLESTEROL 135 mg/dL (5-100)
[2018-08-16 09:50] LABS: HDL CHOLESTEROL 44 mg/dL (40-59)
[2018-08-16 11:58] VITALS: BP 132/53
[2018-08-16] MEDS ORDERED: HEPARIN SODIUM 1,000 UNIT/1ML VIAL IV NR (14:15)
[2018-08-16 16:00] VITALS: BP 154/118
[2018-08-16 20:00] VITALS: BP 103/48
[2018-08-17] VITALS: BP 102/60
[2018-08-17] MEDS: DIPHENHYDRAMINE 50MG/ML VIAL IV PRN ×4 (02:41→17:08)
[2018-08-17] MEDS: HYDROMORPHONE HCL/PF 2MG/ML CPJ IV PRN ×5 (02:41→15:03)
[2018-08-17 04:00] VITALS: BP 118/92
[2018-08-17] MEDS: BLOOD SUGAR DIAGNOSTIC STRIP TEST SCH ×3 (06:21→16:18)
[2018-08-17] MEDS: INSULIN LISPRO 100 UNITS/ML SUBCUT SCH ×3 (06:21→16:17)
[2018-08-17 07:24] LABS: BASOPHILS % 0.9 % (0.0-2.0); HEMATOCRIT. 36.5 % (36.0-48.0); HEMOGLOBIN. 11.3 g/dL (12.0-16.0); MEAN CORPUSCULAR HEMOGLOBIN 27.5 pg (28.0-32.0); MEAN CORPUSCULAR VOLUME 89.1 fL (81.0-99.0); MEAN PLATELET VOLUME 7.9 fl (7.4-10.4); MONOCYTES % 7.2 % (2.0-8.0); NEUTROPHILS % 70.9 % (40.0-76.0); PLATELET 366 x1000/uL (130-400); RED CELL DISTRIBUTION WIDTH 17.3 % (11.6-14.6)
[2018-08-17 08:00] VITALS: BP 112/56
[2018-08-17] MEDS: ENOXAPARIN 40MG/0.4ML SYR SUBCUT SCH (09:00)
[2018-08-17] MEDS ORDERED: DIPHENHYDRAMINE 50MG/ML VIAL IV NR (09:15)
[2018-08-17 12:00] VITALS: BP 129/81
[2018-08-17] MEDS: MAGNESIUM/ALUMINUM HYDROXIDE/SIMETHICONE 30ML UDC PO PRN (12:38)
[2018-08-17 14:24] VITALS: BP 116/75
[2018-08-17 16:00] VITALS: BP 110/69
[2018-08-17] MEDS: ASPIRIN 81MG EC TABLET PO SCH (16:15)
== END 2018-08-17 17:15 | disposition home or self-care (01) | DRG 314 ==
LOC: ER 03:43 → 8WST 05:56 → EDBEDREQTM 05:59 → EDBEDREQ 05:59 → EDBEDREQSVC 05:59 → ENRESERV 08:17 → 8WST 09:33
PROVIDERS: ADMIT Internal Medicine; ATTEND Internal Medicine
PROC: 0JH63XZ Insertion of Tunneled Vascular Access Device into Chest Subcutaneous Tissue and Fascia, Percutaneous Approach (ICD-10-PCS; principal; 2018-08-15)
PROC: 02HV33Z Insertion of Infusion Device into Superior Vena Cava, Percutaneous Approach (ICD-10-PCS; 2018-08-15)
PROC: B548ZZA Ultrasonography of Superior Vena Cava, Guidance (ICD-10-PCS; 2018-08-15)
PROC: B5181ZA Fluoroscopy of Superior Vena Cava using Low Osmolar Contrast, Guidance (ICD-10-PCS; 2018-08-15)
PROC: 5A1D70Z Performance of Urinary Filtration, Intermittent, Less than 6 Hours Per Day (ICD-10-PCS; 2018-08-15)
PROC: 5A1D70Z Performance of Urinary Filtration, Intermittent, Less than 6 Hours Per Day (ICD-10-PCS; 2018-08-16)
PROC: 5A1D70Z Performance of Urinary Filtration, Intermittent, Less than 6 Hours Per Day (ICD-10-PCS; 2018-08-17)
DX: T82.42XA Displacement of vascular dialysis catheter, initial encounter (principal); N18.6 End stage renal disease; E46 Unspecified protein-calorie malnutrition; I13.2 Hypertensive heart and chronic kidney disease with heart failure and with stage 5 chronic kidney disease, or end stage renal disease; E11.22 Type 2 diabetes mellitus with diabetic chronic kidney disease; D64.9 Anemia, unspecified; E87.5 Hyperkalemia; I50.9 Heart failure, unspecified; E11.319 Type 2 diabetes mellitus with unspecified diabetic retinopathy without macular edema; E11.51 Type 2 diabetes mellitus with diabetic peripheral angiopathy without gangrene; H54.7 Unspecified visual loss; Y73.3 Surgical instruments, materials and gastroenterology and urology devices (including sutures) associated with adverse incidents; I25.10 Atherosclerotic heart disease of native coronary artery without angina pectoris; J45.909 Unspecified asthma, uncomplicated; Z89.511 Acquired absence of right leg below knee; Z89.512 Acquired absence of left leg below knee; Y92.89 Other specified places as the place of occurrence of the external cause; Z99.2 Dependence on renal dialysis; Z88.1 Allergy status to other antibiotic agents; Z88.8 Allergy status to other drugs, medicaments and biological substances; Z88.2 Allergy status to sulfonamides; Z88.0 Allergy status to penicillin; Z79.899 Other long term (current) drug therapy; Z68.38 Body mass index [BMI] 38.0-38.9, adult; Z91.013 Allergy to seafood
CPT/HCPCS: 36415; 36558; 76937; 77001; 80048; 80061; 82962; 83605; 84132; 84484; 93005; 96374; 96375; 99285; C1750; C1769; C1887; C1893; J1170; J1200; J1642; J1644; J1650; J1815; J2270; J2405; J3490; J7040; J7050; Q9967

== ENCOUNTER 2018-08-20 07:13 | Inpatient (IN) | payer MEDICARE, MEDICAID ==
[~2018-08-20] VITALS: Ht 121.9 cm; Wt 58.1 kg
[2018-08-20] MEDS ORDERED: MORPHINE SULFATE 4 MG/ML CPJ (NOT FOR IM USE) IV STA ×2 (08:56→11:59)
[2018-08-20] MEDS ORDERED: DIPHENHYDRAMINE 50MG/ML VIAL IV ONE (09:45)
[2018-08-20 10:28] LABS: BASOPHILS % 0.7 % (0.0-2.0); EOSINOPHILS % 3.5 % (0.0-5.0); HEMATOCRIT. 36.4 % (36.0-48.0); HEMOGLOBIN. 11.2 g/dL (12.0-16.0); MEAN CORPUSCULAR HEMOGLOBIN 27.7 pg (28.0-32.0); MEAN CORPUSCULAR VOLUME 89.6 fL (81.0-99.0); MEAN PLATELET VOLUME 7.6 fl (7.4-10.4); MONOCYTES % 5.9 % (2.0-8.0); NEUTROPHILS % 76.9 % (40.0-76.0); PLATELET 312 x1000/uL (130-400); RED BLOOD CELL COUNT 4.06 mill/uL (4.2-5.4)
[2018-08-20 10:34] LABS: CHLORIDE 99 mEq/L (98-107)
[2018-08-20 10:36] LABS: PROTHROMBIN TIME 10.5 sec (9.6-11.0)
[2018-08-20 10:40] LABS: ETHANOL BLOOD < 10 mg/dL
[2018-08-20] MEDS ORDERED: DIPHENHYDRAMINE 50MG/ML VIAL IV NR (11:00)
[2018-08-20] MEDS ORDERED: LORAZEPAM 2MG/ML CPJ IV ONE (12:00)
[2018-08-20] MEDS: DIPHENHYDRAMINE 50MG/ML VIAL IV PRN (20:03)
[2018-08-20] MEDS: HYDROMORPHONE HCL/PF 2MG/ML CPJ IV PRN (20:24)
[2018-08-20 21:35] VITALS: BP 150/64
[2018-08-20] MEDS ORDERED: IPRATROPIUM/ALBUTEROL 0.5-3(2.5)MG/3ML NEB INH PRN (21:45)
[2018-08-20] MEDS ORDERED: LORAZEPAM 2MG/ML CPJ IV PRN (21:45)
[2018-08-20] MEDS ORDERED: ONDANSETRON HCL 4MG/2ML INJ IV PRN (21:45)
[2018-08-20] MEDS ORDERED: DOCUSATE SODIUM 100MG CAPSULE PO PRN (21:45)
[2018-08-20] MEDS ORDERED: NA PHOS,M-B/NA PHOS,DI-BA ENEMA 118ML PR PRN (21:45)
[2018-08-20] MEDS ORDERED: ENOXAPARIN 40MG/0.4ML SYR SUBCUT SCH (21:45)
[2018-08-20] MEDS ORDERED: CLONIDINE 0.1MG TABLET PO PRN (21:45)
[2018-08-21] VITALS (7 sets, daily range): BP systolic 90–150; BP diastolic 49–78
[2018-08-21 00:13] LABS: CHLORIDE 95 mEq/L (98-107)
[2018-08-21] MEDS: HYDROMORPHONE HCL/PF 2MG/ML CPJ IV PRN ×6 (00:35→22:11)
[2018-08-21] MEDS: DIPHENHYDRAMINE 50MG/ML VIAL IV PRN ×6 (00:44→22:10)
[2018-08-21] MEDS ORDERED: DEXTROSE 50% WATER 50ML SYRINGE IV PRN (01:00)
[2018-08-21] MEDS: BLOOD SUGAR DIAGNOSTIC STRIP TEST SCH ×4 (06:39→21:00)
[2018-08-21] MEDS: INSULIN LISPRO 100 UNITS/ML SUBCUT SCH ×4 (06:59→21:00)
[2018-08-21 08:28] LABS: BASOPHILS % 0.6 % (0.0-2.0); EOSINOPHILS % 3.9 % (0.0-5.0); HEMATOCRIT. 36.7 % (36.0-48.0); HEMOGLOBIN. 11.3 g/dL (12.0-16.0); MEAN CORPUSCULAR HEMOGLOBIN 27.4 pg (28.0-32.0); MEAN CORPUSCULAR VOLUME 89.3 fL (81.0-99.0); MEAN PLATELET VOLUME 7.9 fl (7.4-10.4); MONOCYTES % 5.5 % (2.0-8.0); PLATELET 382 x1000/uL (130-400); RED BLOOD CELL COUNT 4.11 mill/uL (4.2-5.4); RED CELL DISTRIBUTION WIDTH 17.2 % (11.6-14.6)
[2018-08-21] MEDS: ENOXAPARIN 30MG/0.3ML SYR SUBCUT SCH (09:00)
[2018-08-21 09:07] LABS: CHLORIDE 94 mEq/L (98-107)
[2018-08-21] MEDS ORDERED: ALTEPLASE 2MG/VIAL ITC NR (09:15)
[2018-08-21 09:21] LABS: LDL CHOLESTEROL 149 mg/dL (5-100)
[2018-08-21 09:23] LABS: HDL CHOLESTEROL 51 mg/dL (40-59)
[2018-08-21] MEDS ORDERED: MORPHINE SULFATE 4 MG/ML CPJ (NOT FOR IM USE) IV NR (16:00)
[2018-08-22] VITALS: BP 119/84
[2018-08-22] MEDS: MAGNESIUM/ALUMINUM HYDROXIDE/SIMETHICONE 30ML UDC PO PRN ×2 (01:32→15:00)
[2018-08-22] MEDS: HYDROMORPHONE HCL/PF 2MG/ML CPJ IV PRN ×5 (02:19→20:20)
[2018-08-22] MEDS: DIPHENHYDRAMINE 50MG/ML VIAL IV PRN ×5 (02:19→20:29)
[2018-08-22 04:00] VITALS: BP 110/86
[2018-08-22] MEDS: BLOOD SUGAR DIAGNOSTIC STRIP TEST SCH ×4 (06:38→21:00)
[2018-08-22] MEDS: INSULIN LISPRO 100 UNITS/ML SUBCUT SCH ×4 (07:40→21:49)
[2018-08-22 07:44] LABS: BASOPHILS % 0.6 % (0.0-2.0); EOSINOPHILS % 3.6 % (0.0-5.0); HEMATOCRIT. 35.8 % (36.0-48.0); HEMOGLOBIN. 11.1 g/dL (12.0-16.0); LYMPHOCYTES % 14.6 % (20.0-50.0); MEAN CORPUSCULAR HEMOGLOBIN 27.6 pg (28.0-32.0); MEAN CORPUSCULAR VOLUME 88.9 fL (81.0-99.0); MEAN PLATELET VOLUME 7.7 fl (7.4-10.4); NEUTROPHILS % 74.2 % (40.0-76.0); PLATELET 285 x1000/uL (130-400); RED BLOOD CELL COUNT 4.02 mill/uL (4.2-5.4); RED CELL DISTRIBUTION WIDTH 17.3 % (11.6-14.6)
[2018-08-22 08:00] VITALS: BP 96/52
[2018-08-22] MEDS: ENOXAPARIN 30MG/0.3ML SYR SUBCUT SCH (09:00)
[2018-08-22 12:00] VITALS: BP 102/58
[2018-08-22 16:00] VITALS: BP 95/69
[2018-08-22 20:00] VITALS: BP 101/74
[2018-08-23] VITALS: BP 124/82
[2018-08-23] MEDS: DIPHENHYDRAMINE 50MG/ML VIAL IV PRN ×2 (00:46→05:50)
[2018-08-23] MEDS: HYDROMORPHONE HCL/PF 2MG/ML CPJ IV PRN ×3 (00:47→14:29)
[2018-08-23 04:00] VITALS: BP 116/76
[2018-08-23 07:04] LABS: BASOPHILS % 0.7 % (0.0-2.0); EOSINOPHILS % 4.3 % (0.0-5.0); HEMATOCRIT. 34.1 % (36.0-48.0); HEMOGLOBIN. 10.7 g/dL (12.0-16.0); LYMPHOCYTES % 12.7 % (20.0-50.0); MEAN CORPUSCULAR HEMOGLOBIN 27.9 pg (28.0-32.0); MEAN CORPUSCULAR VOLUME 88.9 fL (81.0-99.0); MEAN PLATELET VOLUME 7.8 fl (7.4-10.4); MONOCYTES % 5.7 % (2.0-8.0); NEUTROPHILS % 76.6 % (40.0-76.0); PLATELET 296 x1000/uL (130-400); RED BLOOD CELL COUNT 3.84 mill/uL (4.2-5.4); RED CELL DISTRIBUTION WIDTH 17.2 % (11.6-14.6)
[2018-08-23] MEDS: ENOXAPARIN 30MG/0.3ML SYR SUBCUT SCH (08:31)
[2018-08-23] MEDS ORDERED: DIPHENHYDRAMINE 50MG/ML VIAL IV SCH (09:00)
[2018-08-23] MEDS ORDERED: HEPARIN SODIUM 1,000 UNIT/1ML VIAL IV SCH (11:00)
[2018-08-23] MEDS: INSULIN LISPRO 100 UNITS/ML SUBCUT SCH (12:36)
[2018-08-23 15:04] VITALS: BP 104/67
== END 2018-08-23 17:35 | disposition home or self-care (01) | DRG 73 ==
LOC: ER 07:28 → 8WST 15:07 → ENRESERV 19:48 → 8WST 22:14
PROVIDERS: ADMIT Internal Medicine; ATTEND Internal Medicine
PROC: 5A1D70Z Performance of Urinary Filtration, Intermittent, Less than 6 Hours Per Day (ICD-10-PCS; principal; 2018-08-20)
PROC: 5A1D70Z Performance of Urinary Filtration, Intermittent, Less than 6 Hours Per Day (ICD-10-PCS; 2018-08-22)
DX: G90.8 Other disorders of autonomic nervous system (principal); N18.6 End stage renal disease; T82.898A Other specified complication of vascular prosthetic devices, implants and grafts, initial encounter; I13.2 Hypertensive heart and chronic kidney disease with heart failure and with stage 5 chronic kidney disease, or end stage renal disease; E46 Unspecified protein-calorie malnutrition; Y82.8 Other medical devices associated with adverse incidents; E11.22 Type 2 diabetes mellitus with diabetic chronic kidney disease; I50.9 Heart failure, unspecified; E11.51 Type 2 diabetes mellitus with diabetic peripheral angiopathy without gangrene; E11.319 Type 2 diabetes mellitus with unspecified diabetic retinopathy without macular edema; R07.9 Chest pain, unspecified; D63.8 Anemia in other chronic diseases classified elsewhere; W06.XXXA Fall from bed, initial encounter; D72.829 Elevated white blood cell count, unspecified; H54.7 Unspecified visual loss; I25.10 Atherosclerotic heart disease of native coronary artery without angina pectoris; J45.909 Unspecified asthma, uncomplicated; M16.0 Bilateral primary osteoarthritis of hip; Y93.89 Activity, other specified; Y92.89 Other specified places as the place of occurrence of the external cause; Y99.8 Other external cause status; Z88.8 Allergy status to other drugs, medicaments and biological substances; Z99.2 Dependence on renal dialysis; Z89.511 Acquired absence of right leg below knee; Z89.512 Acquired absence of left leg below knee; Z79.899 Other long term (current) drug therapy
CPT/HCPCS: 36415; 71045; 71250; 72192; 73522; 73552; 73560; 73700; 80048; 80051; 80061; 80320; 82962; 84484; 93005; 99285; J1170; J1200; J1644; J1650; J1815; J2060; J2270; J2997; G0480

== ENCOUNTER 2018-08-24 22:49 | Inpatient (IN) | payer MEDICARE, MEDICAID ==
[~2018-08-24] VITALS: Ht 243.8 cm; Wt 69.5 kg
[2018-08-24 23:57] LABS: BASOPHILS % 0.6 % (0.0-2.0); EOSINOPHILS % 3.7 % (0.0-5.0); HEMATOCRIT. 34.8 % (36.0-48.0); LYMPHOCYTES % 10.3 % (20.0-50.0); MEAN CORPUSCULAR HEMOGLOBIN 27.7 pg (28.0-32.0); MEAN CORPUSCULAR VOLUME 87.4 fL (81.0-99.0); MEAN PLATELET VOLUME 7.3 fl (7.4-10.4); MONOCYTES % 6.1 % (2.0-8.0); NEUTROPHILS % 79.3 % (40.0-76.0); PLATELET 260 x1000/uL (130-400); RED BLOOD CELL COUNT 3.99 mill/uL (4.2-5.4); RED CELL DISTRIBUTION WIDTH 16.9 % (11.6-14.6)
[2018-08-25 00:03] LABS: CHLORIDE 95 mEq/L (98-107)
[2018-08-25] MEDS ORDERED: LIDOCAINE 5% PATCH TOP SCH (01:00)
[2018-08-25] MEDS ORDERED: DEXTROSE 50% WATER 50ML SYRINGE IV SCH (01:15)
[2018-08-25] MEDS ORDERED: ALBUTEROL (0.083%) 2.5MG/3ML NEB HHN SCH (01:15)
[2018-08-25] MEDS ORDERED: SODIUM BICARBONATE 8.4% 1 MEQ/ML 50ML SYR IV SCH (01:15)
[2018-08-25] MEDS ORDERED: INSULIN REGULAR (HUMULIN R) 300UNITS/3ML IV SCH (01:15)
[2018-08-25] MEDS ORDERED: CALCIUM CHLORIDE 1GM/10ML SYR IV SCH (01:15)
[2018-08-25 03:00] VITALS: BP 163/73
[2018-08-25 04:11] VITALS: BP 163/73
[2018-08-25] MEDS ORDERED: DOCUSATE SODIUM 100MG CAPSULE PO PRN (07:00)
[2018-08-25] MEDS ORDERED: GUAIFENESIN 200MG/10ML SUGAR FREE UDC PO PRN (07:00)
[2018-08-25] MEDS ORDERED: LORAZEPAM 2MG/ML CPJ IV PRN (07:00)
[2018-08-25] MEDS ORDERED: DEXTROSE 50% WATER 50ML SYRINGE IV PRN (07:00)
[2018-08-25] MEDS ORDERED: MAGNESIUM/ALUMINUM HYDROXIDE/SIMETHICONE 30ML UDC PO PRN (07:00)
[2018-08-25] MEDS ORDERED: ONDANSETRON HCL 4MG/2ML INJ IV PRN (07:00)
[2018-08-25] MEDS ORDERED: IPRATROPIUM/ALBUTEROL 0.5-3(2.5)MG/3ML NEB HHN PRN (07:00)
[2018-08-25] MEDS ORDERED: CLONIDINE 0.1MG TABLET PO PRN (07:00)
[2018-08-25] MEDS: BLOOD SUGAR DIAGNOSTIC STRIP TEST SCH ×4 (07:33→21:24)
[2018-08-25] MEDS: INSULIN LISPRO 100 UNITS/ML SUBCUT SCH ×4 (07:50→21:31)
[2018-08-25] MEDS: HYDROMORPHONE HCL/PF 2MG/ML CPJ IV PRN ×5 (07:53→23:11)
[2018-08-25 08:00] VITALS: BP 121/83
[2018-08-25] MEDS: ASPIRIN 81MG EC TABLET PO SCH (09:05)
[2018-08-25] MEDS: DIPHENHYDRAMINE 50MG/ML VIAL IV PRN ×4 (09:05→22:55)
[2018-08-25] MEDS: DIPHENHYDRAMINE 50MG/ML VIAL IV NR ×2 (10:00→14:39)
[2018-08-25 12:18] VITALS: BP 128/60
[2018-08-25] MEDS: SODIUM CHLORIDE 0.9% INJ 3ML FLUSH IVF SCH ×2 (13:26→21:24)
[2018-08-25 15:06] LABS: CREATINE KINASE 207 IU/L (26-192)
[2018-08-25 15:08] LABS: CREATINE KINASE MB FRACTION 3.2 ng/mL (0.5-3.6)
[2018-08-25 16:30] VITALS: BP 99/85
[2018-08-25 20:00] VITALS: BP 159/69
[2018-08-26] VITALS (7 sets, daily range): BP systolic 114–210; BP diastolic 49–168
[2018-08-26] MEDS: HYDROMORPHONE HCL/PF 2MG/ML CPJ IV PRN ×6 (02:18→22:35)
[2018-08-26] MEDS: DIPHENHYDRAMINE 50MG/ML VIAL IV PRN ×5 (02:58→20:13)
[2018-08-26] MEDS: SODIUM CHLORIDE 0.9% INJ 3ML FLUSH IVF SCH ×3 (05:38→22:32)
[2018-08-26 06:17] LABS: BASOPHILS % 0.7 % (0.0-2.0); EOSINOPHILS % 3.9 % (0.0-5.0); HEMATOCRIT. 33.6 % (36.0-48.0); HEMOGLOBIN. 10.5 g/dL (12.0-16.0); LYMPHOCYTES % 16.6 % (20.0-50.0); MEAN CORPUSCULAR HEMOGLOBIN 27.7 pg (28.0-32.0); MEAN CORPUSCULAR VOLUME 88.8 fL (81.0-99.0); MEAN PLATELET VOLUME 7.7 fl (7.4-10.4); MONOCYTES % 8.1 % (2.0-8.0); NEUTROPHILS % 70.7 % (40.0-76.0); PLATELET 306 x1000/uL (130-400); RED BLOOD CELL COUNT 3.79 mill/uL (4.2-5.4); RED CELL DISTRIBUTION WIDTH 16.8 % (11.6-14.6)
[2018-08-26 06:19] LABS: CHLORIDE 99 mEq/L (98-107)
[2018-08-26] MEDS: BLOOD SUGAR DIAGNOSTIC STRIP TEST SCH ×4 (06:27→21:00)
[2018-08-26 06:35] LABS: CREATINE KINASE 185 IU/L (26-192)
[2018-08-26 06:39] LABS: CREATINE KINASE MB FRACTION 2.4 ng/mL (0.5-3.6)
[2018-08-26] MEDS: INSULIN LISPRO 100 UNITS/ML SUBCUT SCH ×4 (08:45→22:56)
[2018-08-26] MEDS: ASPIRIN 81MG EC TABLET PO SCH (08:45)
[2018-08-26] MEDS ORDERED: HYDROMORPHONE HCL/PF 2MG/ML CPJ IV PRN ×2 (14:15→16:00)
[2018-08-26] MEDS: PANTOPRAZOLE 40MG DR TABLET PO SCH (15:39)
[2018-08-26] MEDS: NYSTATIN POWDER 15GM TOP SCH ×2 (17:00→17:14)
[2018-08-27] VITALS: BP 155/81
[2018-08-27] MEDS: DIPHENHYDRAMINE 50MG/ML VIAL IV PRN ×5 (00:58→16:48)
[2018-08-27] MEDS: HYDROMORPHONE HCL/PF 2MG/ML CPJ IV PRN ×6 (02:43→23:16)
[2018-08-27 04:00] VITALS: BP 141/58
[2018-08-27 06:02] LABS: BASOPHILS % 0.7 % (0.0-2.0); EOSINOPHILS % 5.3 % (0.0-5.0); HEMATOCRIT. 33.5 % (36.0-48.0); HEMOGLOBIN. 10.7 g/dL (12.0-16.0); LYMPHOCYTES % 19.8 % (20.0-50.0); MEAN CORPUSCULAR HEMOGLOBIN 27.8 pg (28.0-32.0); MEAN CORPUSCULAR VOLUME 87.3 fL (81.0-99.0); MEAN PLATELET VOLUME 7.7 fl (7.4-10.4); MONOCYTES % 7.8 % (2.0-8.0); NEUTROPHILS % 66.4 % (40.0-76.0); PLATELET 327 x1000/uL (130-400); RED BLOOD CELL COUNT 3.84 mill/uL (4.2-5.4); RED CELL DISTRIBUTION WIDTH 16.6 % (11.6-14.6)
[2018-08-27] MEDS: SODIUM CHLORIDE 0.9% INJ 3ML FLUSH IVF SCH ×3 (06:22→22:28)
[2018-08-27] MEDS: BLOOD SUGAR DIAGNOSTIC STRIP TEST SCH ×4 (06:22→21:00)
[2018-08-27 08:00] VITALS: BP 119/75
[2018-08-27] MEDS: INSULIN LISPRO 100 UNITS/ML SUBCUT SCH ×4 (08:02→22:27)
[2018-08-27] MEDS: PANTOPRAZOLE 40MG DR TABLET PO SCH (08:03)
[2018-08-27] MEDS: ASPIRIN 81MG EC TABLET PO SCH (08:03)
[2018-08-27] MEDS: NYSTATIN POWDER 15GM TOP SCH ×2 (08:12→16:48)
[2018-08-27] MEDS: ENOXAPARIN 30MG/0.3ML SYR SUBCUT SCH (08:15)
[2018-08-27 12:00] VITALS: BP 154/94
[2018-08-27] MEDS ORDERED: DIPHENHYDRAMINE 50MG/ML VIAL IV NR (12:45)
[2018-08-27 16:00] VITALS: BP 134/86
[2018-08-27] MEDS ORDERED: ALTEPLASE 2MG/VIAL ITC NR (16:00)
[2018-08-27] MEDS ORDERED: DEXTROSE 50% WATER 50ML SYRINGE IV PRN (16:00)
[2018-08-27 20:00] VITALS: BP 138/74
[2018-08-27] MEDS: IPRATROPIUM/ALBUTEROL 0.5-3(2.5)MG/3ML NEB HHN SCH (20:50)
[2018-08-27] MEDS: BUDESONIDE 0.5MG/2ML NEB HHN SCH (20:50)
[2018-08-28] VITALS (7 sets, daily range): BP systolic 101–145; BP diastolic 51–75
[2018-08-28] MEDS: IPRATROPIUM/ALBUTEROL 0.5-3(2.5)MG/3ML NEB HHN SCH ×4 (01:03→21:10)
[2018-08-28] MEDS: DIPHENHYDRAMINE 50MG/ML VIAL IV PRN ×4 (03:18→20:30)
[2018-08-28] MEDS: HYDROMORPHONE HCL/PF 2MG/ML CPJ IV PRN ×5 (04:08→21:49)
[2018-08-28] MEDS: BLOOD SUGAR DIAGNOSTIC STRIP TEST SCH ×4 (07:20→21:00)
[2018-08-28] MEDS: ASPIRIN 81MG EC TABLET PO SCH (08:28)
[2018-08-28] MEDS: PANTOPRAZOLE 40MG DR TABLET PO SCH (08:28)
[2018-08-28] MEDS: INSULIN LISPRO 100 UNITS/ML SUBCUT SCH ×4 (08:38→22:47)
[2018-08-28] MEDS: ENOXAPARIN 30MG/0.3ML SYR SUBCUT SCH (08:41)
[2018-08-28] MEDS ORDERED: DIPHENHYDRAMINE 50MG/ML VIAL IV SCH (08:45)
[2018-08-28] MEDS: BUDESONIDE 0.5MG/2ML NEB HHN SCH ×2 (08:57→21:10)
[2018-08-28 10:20] LABS: BASOPHILS % 0.8 % (0.0-2.0); EOSINOPHILS % 5.1 % (0.0-5.0); HEMATOCRIT. 31.7 % (36.0-48.0); HEMOGLOBIN. 9.9 g/dL (12.0-16.0); LYMPHOCYTES % 15.5 % (20.0-50.0); MEAN CORPUSCULAR HEMOGLOBIN 27.3 pg (28.0-32.0); MEAN CORPUSCULAR VOLUME 87.7 fL (81.0-99.0); MEAN PLATELET VOLUME 7.7 fl (7.4-10.4); MONOCYTES % 5.7 % (2.0-8.0); NEUTROPHILS % 72.9 % (40.0-76.0); PLATELET 298 x1000/uL (130-400); RED BLOOD CELL COUNT 3.61 mill/uL (4.2-5.4); RED CELL DISTRIBUTION WIDTH 16.4 % (11.6-14.6)
[2018-08-28] MEDS: NYSTATIN POWDER 15GM TOP SCH ×2 (13:12→17:16)
[2018-08-29] MEDS: IPRATROPIUM/ALBUTEROL 0.5-3(2.5)MG/3ML NEB HHN SCH ×4 (00:45→22:36)
[2018-08-29] MEDS: DIPHENHYDRAMINE 50MG/ML VIAL IV PRN ×5 (00:51→18:20)
[2018-08-29] MEDS: HYDROMORPHONE HCL/PF 2MG/ML CPJ IV PRN ×5 (02:34→20:12)
[2018-08-29 04:00] VITALS: BP 146/71
[2018-08-29 06:27] LABS: BASOPHILS % 0.6 % (0.0-2.0); EOSINOPHILS % 4.6 % (0.0-5.0); HEMATOCRIT. 33.3 % (36.0-48.0); HEMOGLOBIN. 10.4 g/dL (12.0-16.0); MEAN CORPUSCULAR HEMOGLOBIN 27.5 pg (28.0-32.0); MEAN CORPUSCULAR VOLUME 87.8 fL (81.0-99.0); NEUTROPHILS % 79.8 % (40.0-76.0); PLATELET 284 x1000/uL (130-400); RED BLOOD CELL COUNT 3.79 mill/uL (4.2-5.4); RED CELL DISTRIBUTION WIDTH 17.1 % (11.6-14.6)
[2018-08-29] MEDS: BLOOD SUGAR DIAGNOSTIC STRIP TEST SCH ×4 (07:34→21:03)
[2018-08-29 08:01] VITALS: BP 147/53
[2018-08-29] MEDS: BUDESONIDE 0.5MG/2ML NEB HHN SCH ×2 (08:26→09:25)
[2018-08-29] MEDS: PANTOPRAZOLE 40MG DR TABLET PO SCH (09:51)
[2018-08-29] MEDS: ASPIRIN 81MG EC TABLET PO SCH (09:51)
[2018-08-29] MEDS: INSULIN LISPRO 100 UNITS/ML SUBCUT SCH ×4 (09:52→21:05)
[2018-08-29] MEDS: ENOXAPARIN 30MG/0.3ML SYR SUBCUT SCH (09:56)
[2018-08-29] MEDS: NYSTATIN POWDER 15GM TOP SCH ×2 (09:57→18:20)
[2018-08-29 11:51] VITALS: BP 135/69
[2018-08-29] MEDS: SODIUM CHLORIDE 0.9% INJ 3ML FLUSH IVF SCH ×2 (13:18→21:03)
[2018-08-29 15:58] VITALS: BP 129/85
[2018-08-29 20:00] VITALS: BP 170/88
[2018-08-30] VITALS (7 sets, daily range): BP systolic 131–168; BP diastolic 55–83
[2018-08-30] MEDS: HYDROMORPHONE HCL/PF 2MG/ML CPJ IV PRN ×5 (00:19→18:58)
[2018-08-30] MEDS: DIPHENHYDRAMINE 50MG/ML VIAL IV PRN ×5 (02:28→17:44)
[2018-08-30] MEDS: IPRATROPIUM/ALBUTEROL 0.5-3(2.5)MG/3ML NEB HHN SCH ×3 (04:00→14:33)
[2018-08-30] MEDS: SODIUM CHLORIDE 0.9% INJ 3ML FLUSH IVF SCH ×2 (04:26→14:00)
[2018-08-30] MEDS: BLOOD SUGAR DIAGNOSTIC STRIP TEST SCH ×2 (06:21→12:33)
[2018-08-30] MEDS: ASPIRIN 81MG EC TABLET PO SCH (08:33)
[2018-08-30] MEDS: PANTOPRAZOLE 40MG DR TABLET PO SCH (08:33)
[2018-08-30] MEDS: INSULIN LISPRO 100 UNITS/ML SUBCUT SCH ×2 (08:36→12:33)
[2018-08-30] MEDS: NYSTATIN POWDER 15GM TOP SCH (08:41)
[2018-08-30] MEDS: ENOXAPARIN 30MG/0.3ML SYR SUBCUT SCH (08:43)
== END 2018-08-30 18:35 | disposition home or self-care (01) | DRG 189 ==
LOC: ER 22:49 → ENRESERV 08-25 02:04 → 6WST 08-25 03:20
PROVIDERS: ADMIT Internal Medicine; ATTEND Internal Medicine
PROC: 5A1D70Z Performance of Urinary Filtration, Intermittent, Less than 6 Hours Per Day (ICD-10-PCS; 2018-08-25)
PROC: 5A1D70Z Performance of Urinary Filtration, Intermittent, Less than 6 Hours Per Day (ICD-10-PCS; 2018-08-27)
PROC: 5A1D70Z Performance of Urinary Filtration, Intermittent, Less than 6 Hours Per Day (ICD-10-PCS; 2018-08-28)
PROC: 3E04317 Introduction of Other Thrombolytic into Central Vein, Percutaneous Approach (ICD-10-PCS; 2018-08-28)
PROC: 5A1D70Z Performance of Urinary Filtration, Intermittent, Less than 6 Hours Per Day (ICD-10-PCS; principal; 2018-08-30)
DX: J96.00 Acute respiratory failure, unspecified whether with hypoxia or hypercapnia (principal); N18.6 End stage renal disease; E87.1 Hypo-osmolality and hyponatremia; I13.2 Hypertensive heart and chronic kidney disease with heart failure and with stage 5 chronic kidney disease, or end stage renal disease; I50.42 Chronic combined systolic (congestive) and diastolic (congestive) heart failure; R65.10 Systemic inflammatory response syndrome (SIRS) of non-infectious origin without acute organ dysfunction; I42.9 Cardiomyopathy, unspecified; T82.898A Other specified complication of vascular prosthetic devices, implants and grafts, initial encounter; D64.9 Anemia, unspecified; D72.829 Elevated white blood cell count, unspecified; E11.22 Type 2 diabetes mellitus with diabetic chronic kidney disease; E11.51 Type 2 diabetes mellitus with diabetic peripheral angiopathy without gangrene; E11.319 Type 2 diabetes mellitus with unspecified diabetic retinopathy without macular edema; H54.8 Legal blindness, as defined in USA; E66.9 Obesity, unspecified; E87.5 Hyperkalemia; J45.909 Unspecified asthma, uncomplicated; Z79.4 Long term (current) use of insulin; Z88.2 Allergy status to sulfonamides; Z88.8 Allergy status to other drugs, medicaments and biological substances; Z88.1 Allergy status to other antibiotic agents; Z89.511 Acquired absence of right leg below knee; Z89.512 Acquired absence of left leg below knee; Z99.2 Dependence on renal dialysis; Z91.013 Allergy to seafood; Z79.899 Other long term (current) drug therapy; Y84.1 Kidney dialysis as the cause of abnormal reaction of the patient, or of later complication, without mention of misadventure at the time of the procedure; Y92.89 Other specified places as the place of occurrence of the external cause
CPT/HCPCS: 36415; 71045; 80048; 82550; 82553; 82962; 83880; 84484; 93005; 93306; 94644; 96374; 96375; 99285; C1893; J1170; J1200; J1650; J1815; J2405; J2997; J3490; J7611; J7620; J7626

== ENCOUNTER 2018-11-05 18:23 | Emergency (ER) | payer MEDICARE, MEDICAID ==
[~2018-11-05] VITALS: Ht 121.9 cm; Wt 68.0 kg
[2018-11-05] MEDS ORDERED: SODIUM CHLORIDE 0.9% 1,000 ML IV ONE (18:56)
[2018-11-05 19:17] LABS: BASOPHILS % 0.7 % (0.0-2.0); EOSINOPHILS % 1.8 % (0.0-5.0); HEMATOCRIT. 38.4 % (36.0-48.0); HEMOGLOBIN. 12.2 g/dL (12.0-16.0); LYMPHOCYTES % 14.3 % (20.0-50.0); MEAN CORPUSCULAR HEMOGLOBIN 28.4 pg (28.0-32.0); MEAN CORPUSCULAR VOLUME 89.5 fL (81.0-99.0); MEAN PLATELET VOLUME 7.2 fl (7.4-10.4); MONOCYTES % 6.9 % (2.0-8.0); NEUTROPHILS % 76.3 % (40.0-76.0); PLATELET 384 x1000/uL (130-400); RED CELL DISTRIBUTION WIDTH 19.8 % (11.6-14.6)
[2018-11-05 19:20] LABS: CHLORIDE 96 mEq/L (98-107)
[2018-11-05 19:21] LABS: PROTHROMBIN TIME 10.7 sec (9.6-11.0)
[2018-11-05] MEDS ORDERED: ONDANSETRON HCL 4MG/2ML INJ IV ONE (19:45)
[2018-11-05] MEDS ORDERED: VANCOMYCIN 1 G PREMIX 200 ML IV SCH (20:45)
[2018-11-05] MEDS ORDERED: LEVOFLOXACIN 750MG PREMIX 150 ML IV ONE (20:45)
[2018-11-05] MEDS ORDERED: HYDROCODONE/ACETAMINOPHEN 5/325MG TABLET PO ONE ×2 (20:45→21:30)
[2018-11-05] MEDS ORDERED: DEXTROSE 50% WATER 50ML SYRINGE IV PRN (22:00)
[2018-11-05] MEDS ORDERED: SODIUM CHLORIDE 0.9% INJ 3ML FLUSH IVF SCH (22:00)
[2018-11-05] MEDS ORDERED: IPRATROPIUM/ALBUTEROL 0.5-3(2.5)MG/3ML NEB INH PRN (22:00)
[2018-11-05] MEDS ORDERED: ACETAMINOPHEN 325MG TABLET PO PRN (22:00)
[2018-11-05] MEDS ORDERED: DIPHENHYDRAMINE 50MG/ML VIAL IV PRN (22:00)
[2018-11-05] MEDS ORDERED: GUAIFENESIN 200MG/10ML SUGAR FREE UDC PO PRN (22:00)
[2018-11-05] MEDS ORDERED: INSULIN GLARGINE UD 100 UNITS/ML SYR SUBCUT SCH (22:00)
[2018-11-05] MEDS ORDERED: CLONIDINE 0.1MG TABLET PO PRN (22:00)
[2018-11-05] MEDS ORDERED: ONDANSETRON HCL 4MG/2ML INJ IV PRN (22:00)
[2018-11-05 22:13] VITALS: BP 138/94
[2018-11-06] MEDS ORDERED: PANTOPRAZOLE 40MG DR TABLET PO SCH (07:50)
[2018-11-06] MEDS ORDERED: INSULIN LISPRO 100 UNITS/ML SUBCUT SCH (08:20)
[2018-11-06] MEDS ORDERED: CALCIUM ACETATE 667MG CAPSULE PO SCH (09:00)
[2018-11-06] MEDS ORDERED: FOLIC ACID/VITAMIN B COMP W-C TABLET PO SCH (09:00)
[2018-11-06] MEDS ORDERED: BLOOD SUGAR DIAGNOSTIC STRIP TEST SCH (09:00)
== END 2018-11-06 00:29 | disposition left against medical advice (07) ==
LOC: ER 18:23 → ENRESERV 20:30 → EDBEDREQSVC 21:46 → EDBEDREQTM 21:46 → EDBEDREQ 21:46 → ENRESERV 21:59 → CANRESERV 22:29 → ENRESERV 22:29 → ER 11-06 00:29 → CANBEDREQ 11-06 05:33
DX: G93.41 Metabolic encephalopathy (principal); I13.0 Hypertensive heart and chronic kidney disease with heart failure and stage 1 through stage 4 chronic kidney disease, or unspecified chronic kidney disease; E11.22 Type 2 diabetes mellitus with diabetic chronic kidney disease; E11.40 Type 2 diabetes mellitus with diabetic neuropathy, unspecified; N18.9 Chronic kidney disease, unspecified; N18.6 End stage renal disease; I50.9 Heart failure, unspecified; J45.909 Unspecified asthma, uncomplicated; Z79.4 Long term (current) use of insulin; Z88.0 Allergy status to penicillin; Z88.2 Allergy status to sulfonamides; Z88.3 Allergy status to other anti-infective agents; Z88.8 Allergy status to other drugs, medicaments and biological substances; Z89.9 Acquired absence of limb, unspecified; Z99.2 Dependence on renal dialysis
CPT/HCPCS: 36415; 71045; 80053; 83605; 85025; 85610; 87040; 93005; 96361; 96374; 99291; J2405; J7030; J1956

== ENCOUNTER 2019-01-24 17:59 | Emergency (ER) | payer MEDICARE, MEDICAID ==
[~2019-01-24] VITALS: Ht 160 cm; Wt 92.0 kg
[2019-01-24 20:20] VITALS: BP 132/73
== END 2019-01-24 20:41 | disposition home or self-care (01) ==
LOC: ER 17:59
DX: J02.9 Acute pharyngitis, unspecified (principal); N63.0 Unspecified lump in unspecified breast; E11.22 Type 2 diabetes mellitus with diabetic chronic kidney disease; I13.2 Hypertensive heart and chronic kidney disease with heart failure and with stage 5 chronic kidney disease, or end stage renal disease; I50.9 Heart failure, unspecified; N18.6 End stage renal disease; J45.909 Unspecified asthma, uncomplicated; Z99.2 Dependence on renal dialysis; Z79.4 Long term (current) use of insulin; Z88.2 Allergy status to sulfonamides; Z88.0 Allergy status to penicillin; Z91.013 Allergy to seafood; Z88.3 Allergy status to other anti-infective agents
CPT/HCPCS: 99283

== ENCOUNTER 2019-03-24 11:30 | Inpatient (IN) | payer MEDICARE, MEDICAID ==
[~2019-03-24] VITALS: Ht 152.4 cm; Wt 102.1 kg
[2019-03-24 04:00] VITALS: BP 98/53
[2019-03-24] MEDS ORDERED: NITROGLYCERIN OINT 1GM/INCH UDPKT TD ONE (12:00)
[2019-03-24 12:25] LABS: BASOPHILS % 0.6 % (0.0-2.0); EOSINOPHILS % 1.8 % (0.0-5.0); HEMATOCRIT. 30.1 % (36.0-48.0); HEMOGLOBIN. 9.9 g/dL (12.0-16.0); LYMPHOCYTES % 14.5 % (20.0-50.0); MEAN CORPUSCULAR HEMOGLOBIN 29.3 pg (28.0-32.0); MEAN CORPUSCULAR VOLUME 88.8 fL (81.0-99.0); MEAN PLATELET VOLUME 7.6 fl (7.4-10.4); MONOCYTES % 6.6 % (2.0-8.0); NEUTROPHILS % 76.5 % (40.0-76.0); PLATELET 382 x1000/uL (130-400); RED BLOOD CELL COUNT 3.38 mill/uL (4.2-5.4); RED CELL DISTRIBUTION WIDTH 18.3 % (11.6-14.6)
[2019-03-24] MEDS ORDERED: SODIUM CHLORIDE 0.9% 250 ML IV ONE (12:28)
[2019-03-24 12:43] LABS: CHLORIDE 100 mEq/L (98-107)
[2019-03-24] MEDS ORDERED: HYDROCODONE/ACETAMINOPHEN 5/325MG TABLET PO ONE (13:15)
[2019-03-24 16:00] VITALS: BP 122/66
[2019-03-24] MEDS ORDERED: IPRATROPIUM/ALBUTEROL 0.5-3(2.5)MG/3ML NEB NEB PRN (16:45)
[2019-03-24] MEDS ORDERED: CLONIDINE 0.1MG TABLET PO PRN (16:45)
[2019-03-24] MEDS ORDERED: LORAZEPAM 2MG/ML CPJ IV PRN (16:45)
[2019-03-24] MEDS ORDERED: GUAIFENESIN 200MG/10ML SUGAR FREE UDC PO PRN (16:45)
[2019-03-24] MEDS ORDERED: MAGNESIUM/ALUMINUM HYDROXIDE/SIMETHICONE 30ML UDC PO PRN (16:45)
[2019-03-24] MEDS ORDERED: DEXTROSE 50% WATER 50ML SYRINGE IV PRN (16:45)
[2019-03-24] MEDS ORDERED: HYDROMORPHONE HCL/PF 2MG/ML CPJ IM PRN (16:45)
[2019-03-24] MEDS ORDERED: DOCUSATE SODIUM 100MG CAPSULE PO PRN (16:45)
[2019-03-24] MEDS: ENOXAPARIN 40MG/0.4ML SYR SUBCUT SCH (17:00)
[2019-03-24] MEDS: BLOOD SUGAR DIAGNOSTIC STRIP TEST SCH ×2 (17:25→21:49)
[2019-03-24] MEDS: INSULIN LISPRO 100 UNITS/ML SUBCUT SCH ×2 (17:29→21:58)
[2019-03-24 20:00] VITALS: BP 99/57
[2019-03-24] MEDS: METOPROLOL TARTRATE 25MG TABLET PO SCH (21:49)
[2019-03-24] MEDS: HYDROMORPHONE HCL/PF 2MG/ML CPJ IV PRN (21:51)
[2019-03-24] MEDS: DIPHENHYDRAMINE 50MG CAPSULE PO PRN (22:32)
[2019-03-25] VITALS: BP 98/53
[2019-03-25] MEDS: HYDROMORPHONE HCL/PF 2MG/ML CPJ IV PRN ×5 (02:44→21:01)
[2019-03-25 04:00] VITALS: BP 127/55
[2019-03-25] MEDS: ONDANSETRON HCL 4MG/2ML INJ IV PRN ×3 (06:37→21:01)
[2019-03-25] MEDS: PANTOPRAZOLE 40MG DR TABLET PO SCH (06:37)
[2019-03-25] MEDS: BLOOD SUGAR DIAGNOSTIC STRIP TEST SCH ×4 (06:50→21:02)
[2019-03-25 07:47] LABS: BASOPHILS % 0.9 % (0.0-2.0); EOSINOPHILS % 2.2 % (0.0-5.0); HEMATOCRIT. 31.6 % (36.0-48.0); HEMOGLOBIN. 10.1 g/dL (12.0-16.0); MEAN CORPUSCULAR HEMOGLOBIN 28.8 pg (28.0-32.0); MEAN CORPUSCULAR VOLUME 90.3 fL (81.0-99.0); MEAN PLATELET VOLUME 7.7 fl (7.4-10.4); MONOCYTES % 7.4 % (2.0-8.0); NEUTROPHILS % 77.5 % (40.0-76.0); PLATELET 413 x1000/uL (130-400); RED CELL DISTRIBUTION WIDTH 18.5 % (11.6-14.6)
[2019-03-25] MEDS: ASPIRIN 81MG EC TABLET PO SCH (08:00)
[2019-03-25] MEDS: INSULIN LISPRO 100 UNITS/ML SUBCUT SCH ×4 (08:02→21:00)
[2019-03-25 08:06] VITALS: BP 103/58
[2019-03-25 08:07] LABS: CHLORIDE 96 mEq/L (98-107)
[2019-03-25 08:14] LABS: LDL CHOLESTEROL 67 mg/dL (5-100)
[2019-03-25 08:16] LABS: T4 FREE 0.86 ng/dL (0.76-1.46)
[2019-03-25 08:17] LABS: HDL CHOLESTEROL 46 mg/dL (40-59)
[2019-03-25] MEDS: METOPROLOL TARTRATE 25MG TABLET PO SCH ×2 (08:45→20:59)
[2019-03-25] MEDS: DIPHENHYDRAMINE 50MG CAPSULE PO PRN (08:49)
[2019-03-25] MEDS: INSULIN GLARGINE UD 100 UNITS/ML SYR SUBCUT SCH (10:03)
[2019-03-25] MEDS ORDERED: DIPHENHYDRAMINE 50MG CAPSULE PO SCH (10:30)
[2019-03-25 12:05] VITALS: BP 136/74
[2019-03-25] MEDS ORDERED: METOCLOPRAMIDE HCL 10MG/2ML VIAL IV SCH ×2 (12:30)
[2019-03-25] MEDS: DIPHENHYDRAMINE 50MG/ML VIAL IV PRN ×2 (12:48→18:20)
[2019-03-25] MEDS: METOCLOPRAMIDE HCL 10MG/2ML VIAL IV SCH ×2 (13:08→17:40)
[2019-03-25 15:38] VITALS: BP 113/62
[2019-03-25] MEDS: ENOXAPARIN 40MG/0.4ML SYR SUBCUT SCH (16:39)
[2019-03-25 20:00] VITALS: BP 97/59
[2019-03-26] VITALS: BP 120/58
[2019-03-26] MEDS: METOCLOPRAMIDE HCL 10MG/2ML VIAL IV SCH ×4 (00:29→17:38)
[2019-03-26] MEDS: DIPHENHYDRAMINE 50MG/ML VIAL IV PRN ×4 (00:33→20:52)
[2019-03-26] MEDS: HYDROMORPHONE HCL/PF 2MG/ML CPJ IV PRN ×5 (02:53→22:48)
[2019-03-26] MEDS: PANTOPRAZOLE 40MG DR TABLET PO SCH (06:32)
[2019-03-26] MEDS: BLOOD SUGAR DIAGNOSTIC STRIP TEST SCH ×4 (06:33→20:45)
[2019-03-26 07:28] LABS: BASOPHILS % 0.6 % (0.0-2.0); EOSINOPHILS % 2.4 % (0.0-5.0); HEMATOCRIT. 30.9 % (36.0-48.0); HEMOGLOBIN. 9.6 g/dL (12.0-16.0); LYMPHOCYTES % 12.4 % (20.0-50.0); MEAN CORPUSCULAR HEMOGLOBIN 28.3 pg (28.0-32.0); MEAN CORPUSCULAR VOLUME 90.8 fL (81.0-99.0); MEAN PLATELET VOLUME 7.4 fl (7.4-10.4); MONOCYTES % 7.7 % (2.0-8.0); NEUTROPHILS % 76.9 % (40.0-76.0); PLATELET 407 x1000/uL (130-400); RED BLOOD CELL COUNT 3.41 mill/uL (4.2-5.4); RED CELL DISTRIBUTION WIDTH 18.8 % (11.6-14.6)
[2019-03-26 08:00] VITALS: BP 112/46
[2019-03-26] MEDS: INSULIN LISPRO 100 UNITS/ML SUBCUT SCH ×4 (08:30→20:53)
[2019-03-26] MEDS: METOPROLOL TARTRATE 25MG TABLET PO SCH ×2 (08:31→08:37)
[2019-03-26] MEDS: ASPIRIN 81MG EC TABLET PO SCH (08:31)
[2019-03-26] MEDS: INSULIN GLARGINE UD 100 UNITS/ML SYR SUBCUT SCH (10:44)
[2019-03-26 12:00] VITALS: BP 110/59
[2019-03-26 16:00] VITALS: BP 115/54
[2019-03-26] MEDS: ENOXAPARIN 40MG/0.4ML SYR SUBCUT SCH (17:00)
[2019-03-26 20:00] VITALS: BP 110/30
[2019-03-27] VITALS: BP 114/57
[2019-03-27] MEDS: METOCLOPRAMIDE HCL 10MG/2ML VIAL IV SCH ×6 (00:23→23:43)
[2019-03-27 04:00] VITALS: BP 140/83
[2019-03-27] MEDS: DIPHENHYDRAMINE 50MG/ML VIAL IV PRN (04:08)
[2019-03-27] MEDS: HYDROMORPHONE HCL/PF 2MG/ML CPJ IV PRN ×5 (04:22→22:32)
[2019-03-27 06:59] LABS: BASOPHILS % 0.5 % (0.0-2.0); EOSINOPHILS % 2.8 % (0.0-5.0); HEMATOCRIT. 29.2 % (36.0-48.0); HEMOGLOBIN. 9.3 g/dL (12.0-16.0); LYMPHOCYTES % 13.8 % (20.0-50.0); MEAN CORPUSCULAR VOLUME 90.9 fL (81.0-99.0); MEAN PLATELET VOLUME 7.6 fl (7.4-10.4); MONOCYTES % 6.1 % (2.0-8.0); NEUTROPHILS % 76.8 % (40.0-76.0); PLATELET 356 x1000/uL (130-400); RED BLOOD CELL COUNT 3.21 mill/uL (4.2-5.4); RED CELL DISTRIBUTION WIDTH 18.9 % (11.6-14.6)
[2019-03-27] MEDS: BLOOD SUGAR DIAGNOSTIC STRIP TEST SCH ×4 (07:04→21:04)
[2019-03-27 08:00] VITALS: BP 118/51
[2019-03-27] MEDS: METOPROLOL TARTRATE 25MG TABLET PO SCH ×2 (09:00→21:00)
[2019-03-27] MEDS: ASPIRIN 81MG EC TABLET PO SCH (09:17)
[2019-03-27] MEDS: FAMOTIDINE 20MG TABLET PO SCH (09:18)
[2019-03-27] MEDS: INSULIN LISPRO 100 UNITS/ML SUBCUT SCH ×4 (09:30→21:12)
[2019-03-27] MEDS: DIPHENHYDRAMINE 50MG/ML VIAL IV NR ×2 (11:38→19:42)
[2019-03-27] MEDS: INSULIN GLARGINE UD 100 UNITS/ML SYR SUBCUT SCH (11:44)
[2019-03-27 12:00] VITALS: BP 135/69
[2019-03-27 16:00] VITALS: BP 110/58
[2019-03-27] MEDS: ENOXAPARIN 40MG/0.4ML SYR SUBCUT SCH (17:00)
[2019-03-27 20:00] VITALS: BP 109/43
[2019-03-28] VITALS: BP 95/62
[2019-03-28] MEDS: DIPHENHYDRAMINE 50MG/ML VIAL IV PRN ×2 (01:46→08:29)
[2019-03-28] MEDS: HYDROMORPHONE HCL/PF 2MG/ML CPJ IV PRN ×3 (02:32→12:58)
[2019-03-28 04:00] VITALS: BP 104/50
[2019-03-28] MEDS: METOCLOPRAMIDE HCL 10MG/2ML VIAL IV SCH ×3 (06:00→12:57)
[2019-03-28] MEDS: BLOOD SUGAR DIAGNOSTIC STRIP TEST SCH ×2 (07:22→12:20)
[2019-03-28 07:32] LABS: BASOPHILS % 0.8 % (0.0-2.0); EOSINOPHILS % 2.5 % (0.0-5.0); HEMATOCRIT. 27.1 % (36.0-48.0); HEMOGLOBIN. 8.7 g/dL (12.0-16.0); LYMPHOCYTES % 11.9 % (20.0-50.0); MEAN CORPUSCULAR HEMOGLOBIN 28.8 pg (28.0-32.0); MEAN CORPUSCULAR VOLUME 89.6 fL (81.0-99.0); MEAN PLATELET VOLUME 7.6 fl (7.4-10.4); MONOCYTES % 6.3 % (2.0-8.0); NEUTROPHILS % 78.5 % (40.0-76.0); PLATELET 341 x1000/uL (130-400); RED BLOOD CELL COUNT 3.03 mill/uL (4.2-5.4); RED CELL DISTRIBUTION WIDTH 18.8 % (11.6-14.6)
[2019-03-28 08:00] VITALS: BP 93/67
[2019-03-28] MEDS: FAMOTIDINE 20MG TABLET PO SCH (08:29)
[2019-03-28] MEDS: METOPROLOL TARTRATE 25MG TABLET PO SCH (08:30)
[2019-03-28] MEDS: ASPIRIN 81MG EC TABLET PO SCH (08:30)
[2019-03-28] MEDS: INSULIN LISPRO 100 UNITS/ML SUBCUT SCH ×2 (08:43→13:59)
[2019-03-28] MEDS: INSULIN GLARGINE UD 100 UNITS/ML SYR SUBCUT SCH (11:44)
[2019-03-28 12:00] VITALS: BP 150/90
[2019-03-28 14:45] VITALS: BP 125/72
[2019-03-29] MEDS ORDERED: ASPI-1158 PO (21:31)
== END 2019-03-28 15:00 | disposition home or self-care (01) | DRG 314 ==
LOC: EDBEDREQ 11:53 → ER 12:16 → 6WST 13:02 → EDBEDREQTM 13:06 → EDBEDREQ 13:06 → ENRESERV 14:55 → 6WST 16:43
PROVIDERS: ADMIT Internal Medicine; ATTEND Internal Medicine
PROC: 5A1D70Z Performance of Urinary Filtration, Intermittent, Less than 6 Hours Per Day (ICD-10-PCS; principal; 2019-03-25)
PROC: 5A1D70Z Performance of Urinary Filtration, Intermittent, Less than 6 Hours Per Day (ICD-10-PCS; 2019-03-26)
PROC: 5A1D70Z Performance of Urinary Filtration, Intermittent, Less than 6 Hours Per Day (ICD-10-PCS; 2019-03-28)
DX: I95.9 Hypotension, unspecified (principal); N18.6 End stage renal disease; I13.2 Hypertensive heart and chronic kidney disease with heart failure and with stage 5 chronic kidney disease, or end stage renal disease; F11.20 Opioid dependence, uncomplicated; R07.89 Other chest pain; I50.9 Heart failure, unspecified; E11.22 Type 2 diabetes mellitus with diabetic chronic kidney disease; E11.319 Type 2 diabetes mellitus with unspecified diabetic retinopathy without macular edema; E11.51 Type 2 diabetes mellitus with diabetic peripheral angiopathy without gangrene; E78.00 Pure hypercholesterolemia, unspecified; E11.40 Type 2 diabetes mellitus with diabetic neuropathy, unspecified; I25.10 Atherosclerotic heart disease of native coronary artery without angina pectoris; J45.909 Unspecified asthma, uncomplicated; L29.9 Pruritus, unspecified; Z89.512 Acquired absence of left leg below knee; Z99.2 Dependence on renal dialysis; Z89.511 Acquired absence of right leg below knee; Z79.899 Other long term (current) drug therapy; Z79.4 Long term (current) use of insulin; Z88.0 Allergy status to penicillin; Z88.1 Allergy status to other antibiotic agents; Z88.2 Allergy status to sulfonamides
CPT/HCPCS: 36415; 71045; 80048; 80061; 82962; 84439; 84443; 84484; 93005; 99285; C1893; J1170; J1200; J1650; J1815; J2405; J2765; J7050; Q0163

== ENCOUNTER 2019-06-14 10:56 | Inpatient (IN) | payer MEDICARE, MEDICAID ==
[~2019-06-14] VITALS: Ht 160 cm; Wt 95.3 kg
[~2019-06-14 10:56] MED LIST changes: +ASPI-1158 PO
[2019-06-14] MEDS ORDERED: MORPHINE SULFATE 4 MG/ML CPJ (NOT FOR IM USE) IV STA (11:20)
[2019-06-14] MEDS ORDERED: ONDANSETRON HCL 4MG/2ML INJ IV STA (11:20)
[2019-06-14 12:03] LABS: BASOPHILS % 0.8 % (0.0-2.0); EOSINOPHILS % 2.9 % (0.0-5.0); HEMATOCRIT. 37.2 % (36.0-48.0); HEMOGLOBIN. 11.8 g/dL (12.0-16.0); MEAN CORPUSCULAR VOLUME 88.1 fL (81.0-99.0); MEAN PLATELET VOLUME 7.1 fl (7.4-10.4); MONOCYTES % 6.3 % (2.0-8.0); PLATELET 477 x1000/uL (130-400); RED BLOOD CELL COUNT 4.22 mill/uL (4.2-5.4); RED CELL DISTRIBUTION WIDTH 18.1 % (11.6-14.6)
[2019-06-14 12:08] LABS: CHLORIDE 97 mEq/L (98-107)
[2019-06-14 12:14] LABS: PROTHROMBIN TIME 10.9 sec (9.6-11.0)
[2019-06-14] MEDS ORDERED: DIPHENHYDRAMINE 50MG/ML VIAL IV ONE (12:15)
[2019-06-14] MEDS ORDERED: INSULIN REGULAR (HUMULIN R) 300UNITS/3ML IV ONE (12:30)
[2019-06-14] MEDS ORDERED: DEXTROSE 50% WATER 50ML SYRINGE IV ONE (12:30)
[2019-06-14] MEDS ORDERED: SODIUM BICARBONATE 8.4% 1 MEQ/ML 50ML SYR IV ONE (12:30)
[2019-06-14 15:16] VITALS: BP 143/93
[2019-06-14] MEDS ORDERED: HYDRALAZINE 20MG/ML VIAL IV PRN (15:45)
[2019-06-14] MEDS ORDERED: IPRATROPIUM/ALBUTEROL 0.5-3(2.5)MG/3ML NEB NEB PRN (15:45)
[2019-06-14] MEDS ORDERED: GUAIFENESIN 200MG/10ML SUGAR FREE UDC PO PRN (15:45)
[2019-06-14] MEDS ORDERED: DEXTROSE 50% WATER 50ML SYRINGE IV PRN (15:45)
[2019-06-14] MEDS ORDERED: CLONIDINE 0.1MG TABLET PO PRN (15:45)
[2019-06-14] MEDS ORDERED: DOCUSATE SODIUM 100MG CAPSULE PO PRN (15:45)
[2019-06-14] MEDS ORDERED: MAGNESIUM/ALUMINUM HYDROXIDE/SIMETHICONE 30ML UDC PO PRN (15:45)
[2019-06-14] MEDS ORDERED: ONDANSETRON HCL 4MG/2ML INJ IV PRN (15:45)
[2019-06-14 15:52] VITALS: BP 145/93
[2019-06-14] MEDS: ENOXAPARIN 40MG/0.4ML SYR SUBCUT SCH (16:00)
[2019-06-14] MEDS: DIPHENHYDRAMINE 50MG/ML VIAL IV PRN ×2 (16:02→21:16)
[2019-06-14] MEDS: MORPHINE SULFATE 2 MG/ML CPJ (NOT FOR IM USE) IV PRN (16:03)
[2019-06-14] MEDS: INSULIN LISPRO 100 UNITS/ML SUBCUT SCH ×2 (16:56→20:03)
[2019-06-14] MEDS: BLOOD SUGAR DIAGNOSTIC STRIP TEST SCH ×2 (16:56→20:03)
[2019-06-14] MEDS ORDERED: HYDROMORPHONE HCL/PF 2MG/ML CPJ IM PRN (17:15)
[2019-06-14 18:00] VITALS: BP 154/87
[2019-06-14] MEDS ORDERED: DIPHENHYDRAMINE 50MG/ML VIAL IV NR (18:31)
[2019-06-14 20:01] VITALS: BP 101/68
[2019-06-14] MEDS: HYDROMORPHONE HCL/PF 2MG/ML CPJ IV PRN (20:03)
[2019-06-14] MEDS: SODIUM CHLORIDE 0.9% INJ 3ML FLUSH IVF SCH (21:16)
[2019-06-14 22:04] VITALS: BP 98/63
[2019-06-15] VITALS (11 sets, daily range): BP systolic 94–127; BP diastolic 58–82
[2019-06-15] MEDS: HYDROMORPHONE HCL/PF 2MG/ML CPJ IV PRN ×6 (00:05→20:04)
[2019-06-15 00:55] LABS: CREATINE KINASE 99 IU/L (26-192); CREATINE KINASE MB FRACTION 2.3 ng/mL (0.5-3.6)
[2019-06-15] MEDS: DIPHENHYDRAMINE 50MG/ML VIAL IV PRN ×5 (01:15→19:35)
[2019-06-15] MEDS: SODIUM CHLORIDE 0.9% INJ 3ML FLUSH IVF SCH ×3 (06:00→20:45)
[2019-06-15] MEDS: BLOOD SUGAR DIAGNOSTIC STRIP TEST SCH ×4 (06:50→20:35)
[2019-06-15 06:58] LABS: CHLORIDE 99 mEq/L (98-107)
[2019-06-15 07:12] LABS: BASOPHILS % 0.6 % (0.0-2.0); EOSINOPHILS % 2.3 % (0.0-5.0); HEMATOCRIT. 37.2 % (36.0-48.0); HEMOGLOBIN. 11.4 g/dL (12.0-16.0); LYMPHOCYTES % 13.1 % (20.0-50.0); MEAN CORPUSCULAR HEMOGLOBIN 27.4 pg (28.0-32.0); MEAN CORPUSCULAR VOLUME 89.6 fL (81.0-99.0); MEAN PLATELET VOLUME 7.4 fl (7.4-10.4); MONOCYTES % 9.6 % (2.0-8.0); NEUTROPHILS % 74.4 % (40.0-76.0); PLATELET 409 x1000/uL (130-400); RED BLOOD CELL COUNT 4.15 mill/uL (4.2-5.4); RED CELL DISTRIBUTION WIDTH 18.8 % (11.6-14.6)
[2019-06-15 07:15] LABS: CREATINE KINASE 107 IU/L (26-192)
[2019-06-15 07:18] LABS: CREATINE KINASE MB FRACTION 2.9 ng/mL (0.5-3.6)
[2019-06-15] MEDS: INSULIN LISPRO 100 UNITS/ML SUBCUT SCH ×4 (07:55→17:07)
[2019-06-15] MEDS ORDERED: ALTEPLASE 2MG/VIAL ITC NR (14:00)
[2019-06-15] MEDS: ENOXAPARIN 40MG/0.4ML SYR SUBCUT SCH (16:02)
[2019-06-16] VITALS: BP 104/78
[2019-06-16] MEDS: HYDROMORPHONE HCL/PF 2MG/ML CPJ IV PRN ×2 (00:12→05:20)
[2019-06-16] MEDS: DIPHENHYDRAMINE 50MG/ML VIAL IV PRN ×4 (00:30→13:43)
[2019-06-16 04:00] VITALS: BP 95/54
[2019-06-16 06:00] VITALS: BP 120/70
[2019-06-16] MEDS: BLOOD SUGAR DIAGNOSTIC STRIP TEST SCH ×2 (06:22→12:15)
[2019-06-16] MEDS: SODIUM CHLORIDE 0.9% INJ 3ML FLUSH IVF SCH ×2 (06:42→13:10)
[2019-06-16] MEDS: INSULIN LISPRO 100 UNITS/ML SUBCUT SCH ×2 (07:57→13:13)
[2019-06-16 08:43] VITALS: BP 147/75
[2019-06-16] MEDS ORDERED: PANTOT AC/MIN OIL/PET HY-PHL OINT (AQUAPHOR) TOP SCH (09:00)
[2019-06-16] MEDS ORDERED: OMEPRAZOLE 20MG CAPSULE EXTENDED RELEASE PO SCH (11:30)
[2019-06-16] MEDS: MORPHINE SULFATE 2 MG/ML CPJ (NOT FOR IM USE) IV PRN (11:49)
[2019-06-16 11:54] VITALS: BP 106/76
[2019-06-16 13:50] VITALS: BP 106/76
[2019-06-16] MEDS: ENOXAPARIN 40MG/0.4ML SYR SUBCUT SCH (16:00)
== END 2019-06-16 17:45 | disposition home health service (06) | DRG 564 ==
LOC: ER 10:56 → 3WST 12:51 → EDBEDREQTM 12:55 → EDBEDREQ 12:55 → EDBEDREQSVC 12:55 → ENRESERV 14:01 → ER 14:25
PROVIDERS: ADMIT Internal Medicine; ATTEND Internal Medicine
PROC: 5A1D70Z Performance of Urinary Filtration, Intermittent, Less than 6 Hours Per Day (ICD-10-PCS; 2019-06-14)
PROC: 5A1D70Z Performance of Urinary Filtration, Intermittent, Less than 6 Hours Per Day (ICD-10-PCS; principal; 2019-06-15)
DX: T87.54 Necrosis of amputation stump, left lower extremity (principal); N18.6 End stage renal disease; I13.2 Hypertensive heart and chronic kidney disease with heart failure and with stage 5 chronic kidney disease, or end stage renal disease; E87.1 Hypo-osmolality and hyponatremia; D64.9 Anemia, unspecified; E11.22 Type 2 diabetes mellitus with diabetic chronic kidney disease; E66.01 Morbid (severe) obesity due to excess calories; E83.59 Other disorders of calcium metabolism; E87.5 Hyperkalemia; G89.29 Other chronic pain; I50.9 Heart failure, unspecified; E11.51 Type 2 diabetes mellitus with diabetic peripheral angiopathy without gangrene; H54.8 Legal blindness, as defined in USA; L98.9 Disorder of the skin and subcutaneous tissue, unspecified; Z99.81 Dependence on supplemental oxygen; Z99.2 Dependence on renal dialysis; Z89.512 Acquired absence of left leg below knee; Z89.511 Acquired absence of right leg below knee; Z79.4 Long term (current) use of insulin; Z91.19 Patient's noncompliance with other medical treatment and regimen; Z88.1 Allergy status to other antibiotic agents; Z88.2 Allergy status to sulfonamides; Z88.8 Allergy status to other drugs, medicaments and biological substances; Z79.82 Long term (current) use of aspirin; Z79.899 Other long term (current) drug therapy; Z68.37 Body mass index [BMI] 37.0-37.9, adult
CPT/HCPCS: 36415; 71045; 80053; 82550; 82553; 82962; 83605; 84484; 85025; 93005; 99291; J1170; J1200; J1650; J1815; J2270; J2405; J2997; J3490

== ENCOUNTER 2019-10-22 23:03 | Inpatient (IN) | payer MEDICARE, MEDICAID ==
[~2019-10-22] VITALS: Ht 154.9 cm; Wt 95.7 kg
[2019-10-23] MEDS ORDERED: ONDANSETRON HCL 4MG/2ML INJ IV STA ×2 (01:08→04:21)
[2019-10-23] MEDS ORDERED: MORPHINE SULFATE 4 MG/ML CPJ (NOT FOR IM USE) IV STA ×2 (01:08→04:21)
[2019-10-23 03:28] LABS: BASOPHILS % 0.7 % (0.0-2.0); EOSINOPHILS % 4.5 % (0.0-5.0); HEMATOCRIT. 26.4 % (36.0-48.0); HEMOGLOBIN. 8.5 g/dL (12.0-16.0); LYMPHOCYTES % 13.7 % (20.0-50.0); MEAN CORPUSCULAR HEMOGLOBIN 27.5 pg (28.0-32.0); MEAN CORPUSCULAR VOLUME 85.7 fL (81.0-99.0); MEAN PLATELET VOLUME 6.8 fl (7.4-10.4); MONOCYTES % 7.9 % (2.0-8.0); NEUTROPHILS % 73.2 % (40.0-76.0); PLATELET 416 x1000/uL (130-400); RED BLOOD CELL COUNT 3.08 mill/uL (4.2-5.4); RED CELL DISTRIBUTION WIDTH 17.4 % (11.6-14.6)
[2019-10-23 03:31] LABS: CHLORIDE 95 mEq/L (98-107)
[2019-10-23 03:34] LABS: INR 1.1; PROTHROMBIN TIME 11.8 sec (9.6-11.0)
[2019-10-23] MEDS ORDERED: SODIUM BICARBONATE 8.4% 1 MEQ/ML 50ML SYR IV ONE (04:00)
[2019-10-23] MEDS ORDERED: INSULIN REGULAR (HUMULIN R) 300UNITS/3ML IV ONE (04:00)
[2019-10-23] MEDS ORDERED: DEXTROSE 50% WATER 50ML SYRINGE IV ONE (04:00)
[2019-10-23] MEDS ORDERED: LEVOFLOXACIN 750MG PREMIX 150 ML IV ONE (04:00)
[2019-10-23] MEDS ORDERED: CLINDAMYCIN 600 MG in DEXTROSE 5% WATER 50 ML IV ONE (04:00)
[2019-10-23] MEDS ORDERED: VANCOMYCIN 1 G PREMIX 200 ML IV SCH (04:00)
[2019-10-23] MEDS ORDERED: CLINDAMYCIN 600MG PREMIX 50 ML IV NR (04:30)
[2019-10-23] MEDS: ALBUTEROL (0.083%) 2.5MG/3ML NEB HHN ONE ×2 (04:37→04:40)
[2019-10-23] MEDS ORDERED: DIPHENHYDRAMINE 50MG/ML VIAL IV ONE (04:45)
[2019-10-23] MEDS ORDERED: ACETAMINOPHEN 325MG TABLET PO ONE (06:45)
[2019-10-23] MEDS ORDERED: IPRATROPIUM/ALBUTEROL 0.5-3(2.5)MG/3ML NEB NEB PRN (09:45)
[2019-10-23] MEDS ORDERED: GUAIFENESIN 200MG/10ML SUGAR FREE UDC PO PRN (09:45)
[2019-10-23] MEDS ORDERED: HYDRALAZINE 20MG/ML VIAL IV PRN ×2 (09:45→10:00)
[2019-10-23] MEDS ORDERED: ENOXAPARIN 40MG/0.4ML SYR SUBCUT SCH (09:45)
[2019-10-23] MEDS ORDERED: MAGNESIUM/ALUMINUM HYDROXIDE/SIMETHICONE 30ML UDC PO PRN (09:45)
[2019-10-23] MEDS ORDERED: DEXTROSE 50% WATER 50ML SYRINGE IV PRN (09:45)
[2019-10-23] MEDS ORDERED: ONDANSETRON HCL 4MG/2ML INJ IV PRN (09:45)
[2019-10-23] MEDS ORDERED: MORPHINE SULFATE 2 MG/ML CPJ (NOT FOR IM USE) IV PRN (09:45)
[2019-10-23] MEDS ORDERED: CLONIDINE 0.1MG TABLET PO PRN (09:45)
[2019-10-23] MEDS ORDERED: DOCUSATE SODIUM 100MG CAPSULE PO PRN (09:45)
[2019-10-23] MEDS: ENOXAPARIN 30MG/0.3ML SYR SUBCUT SCH ×2 (09:57→10:00)
[2019-10-23 10:00] VITALS: BP 104/58
[2019-10-23] MEDS: DIPHENHYDRAMINE 50MG/ML VIAL IV PRN ×3 (10:35→21:04)
[2019-10-23] MEDS: BLOOD SUGAR DIAGNOSTIC STRIP TEST SCH ×3 (11:45→20:58)
[2019-10-23 12:00] VITALS: BP 141/110
[2019-10-23] MEDS ORDERED: LEVOFLOXACIN 500MG PREMIX 100 ML IV SCH (12:00)
[2019-10-23] MEDS: HYDROMORPHONE HCL/PF 2MG/ML CPJ IV PRN ×2 (12:09→18:15)
[2019-10-23] MEDS: INSULIN LISPRO 100 UNITS/ML SUBCUT SCH ×3 (12:15→21:12)
[2019-10-23 16:00] VITALS: BP 121/68
[2019-10-23] MEDS ORDERED: HEPARIN SODIUM 1,000 UNIT/1ML VIAL IV NR (17:15)
[2019-10-23 20:00] VITALS: BP 160/71
[2019-10-24] VITALS (7 sets, daily range): BP systolic 83–163; BP diastolic 39–123
[2019-10-24] MEDS: HYDROMORPHONE HCL/PF 2MG/ML CPJ IV PRN ×5 (00:25→20:59)
[2019-10-24] MEDS: DIPHENHYDRAMINE 50MG/ML VIAL IV PRN ×4 (01:33→18:26)
[2019-10-24] MEDS: INSULIN LISPRO 100 UNITS/ML SUBCUT SCH ×4 (06:44→21:13)
[2019-10-24] MEDS: ENOXAPARIN 30MG/0.3ML SYR SUBCUT SCH (08:21)
[2019-10-24] MEDS: BLOOD SUGAR DIAGNOSTIC STRIP TEST SCH ×3 (12:11→20:56)
[2019-10-24] MEDS: TRIAMCINOLONE ACETONIDE 0.1% CREAM 15GM TOP SCH ×2 (12:34→21:00)
[2019-10-24 12:35] LABS: BASOPHILS % 0.5 % (0.0-2.0); HEMATOCRIT. 23.5 % (36.0-48.0); HEMOGLOBIN. 7.8 g/dL (12.0-16.0); LYMPHOCYTES % 9.8 % (20.0-50.0); MEAN CORPUSCULAR HEMOGLOBIN 28.6 pg (28.0-32.0); MEAN CORPUSCULAR VOLUME 86.3 fL (81.0-99.0); MEAN PLATELET VOLUME 6.7 fl (7.4-10.4); MONOCYTES % 8.1 % (2.0-8.0); NEUTROPHILS % 77.6 % (40.0-76.0); PLATELET 396 x1000/uL (130-400); RED BLOOD CELL COUNT 2.72 mill/uL (4.2-5.4); RED CELL DISTRIBUTION WIDTH 17.7 % (11.6-14.6)
[2019-10-24 12:48] LABS: CHLORIDE 97 mEq/L (98-107)
[2019-10-24] MEDS: LORAZEPAM 2MG/ML CPJ IV PRN ×2 (14:36→20:34)
[2019-10-24 18:13] LABS: HEPATITIS B SURFACE AB 234.7 mIU/mL
[2019-10-24 18:19] LABS: HEPATITIS B SURFACE ANTIGEN NEGATIVE
[2019-10-24 18:46] LABS: HEPATITIS A AB IGM NEGATIVE (NEGATIVE)
[2019-10-25 00:45] VITALS: BP 115/82
[2019-10-25] MEDS: LORAZEPAM 2MG/ML CPJ IV PRN ×4 (02:19→23:53)
[2019-10-25] MEDS: HYDROMORPHONE HCL/PF 2MG/ML CPJ IV PRN ×5 (03:23→22:22)
[2019-10-25] MEDS: DIPHENHYDRAMINE 50MG/ML VIAL IV PRN ×4 (06:00→20:29)
[2019-10-25] MEDS: BLOOD SUGAR DIAGNOSTIC STRIP TEST SCH ×4 (06:09→20:56)
[2019-10-25] MEDS: INSULIN LISPRO 100 UNITS/ML SUBCUT SCH ×4 (06:09→20:56)
[2019-10-25] MEDS: DEXTROSE 50% WATER 50ML SYRINGE IV NR ×2 (07:05→10:53)
[2019-10-25] MEDS: SODIUM BICARBONATE 8.4% 1 MEQ/ML 50ML SYR IV NR ×2 (07:05→10:53)
[2019-10-25] MEDS: TRIAMCINOLONE ACETONIDE 0.1% CREAM 15GM TOP SCH ×2 (07:54→22:24)
[2019-10-25] MEDS: PANTOT AC/MIN OIL/PET HY-PHL OINT (AQUAPHOR) TOP SCH (07:54)
[2019-10-25] MEDS: ENOXAPARIN 30MG/0.3ML SYR SUBCUT SCH ×2 (07:54→08:02)
[2019-10-25] MEDS: INSULIN REGULAR (HUMULIN R) UD 100 UNITS/ML SYR IV NR ×2 (08:00→10:54)
[2019-10-25 08:12] VITALS: BP 126/103
[2019-10-25] MEDS ORDERED: CALCIUM GLUCONATE 1,000 MG in DEXT 5% WATER 90 ML IV SCH (09:00)
[2019-10-25] MEDS ORDERED: HEPARIN SODIUM 1,000 UNIT/1ML VIAL IV NR (09:45)
[2019-10-25 10:21] LABS: BASOPHILS % 0.5 % (0.0-2.0); EOSINOPHILS % 3.2 % (0.0-5.0); HEMATOCRIT. 24.4 % (36.0-48.0); HEMOGLOBIN. 7.7 g/dL (12.0-16.0); LYMPHOCYTES % 8.8 % (20.0-50.0); MEAN PLATELET VOLUME 7.3 fl (7.4-10.4); NEUTROPHILS % 81.5 % (40.0-76.0); PLATELET 441 x1000/uL (130-400); RED BLOOD CELL COUNT 2.86 mill/uL (4.2-5.4); RED CELL DISTRIBUTION WIDTH 17.5 % (11.6-14.6)
[2019-10-25 10:25] LABS: MEAN CORPUSCULAR VOLUME 85.5 fL (81.0-99.0)
[2019-10-25 12:01] VITALS: BP 100/68
[2019-10-25] MEDS ORDERED: LEVOFLOXACIN 500MG PREMIX 100 ML IV SCH (15:00)
[2019-10-25 15:47] VITALS: BP 140/71
[2019-10-25 20:00] VITALS: BP 123/78
[2019-10-26] VITALS: BP 128/78
[2019-10-26] MEDS: DIPHENHYDRAMINE 50MG/ML VIAL IV PRN ×5 (02:11→23:10)
[2019-10-26] MEDS: HYDROMORPHONE HCL/PF 2MG/ML CPJ IV PRN ×5 (02:18→20:34)
[2019-10-26 04:00] VITALS: BP 146/72
[2019-10-26] MEDS: LORAZEPAM 2MG/ML CPJ IV PRN ×3 (04:56→21:34)
[2019-10-26] MEDS: INSULIN LISPRO 100 UNITS/ML SUBCUT SCH ×4 (06:49→20:35)
[2019-10-26] MEDS: BLOOD SUGAR DIAGNOSTIC STRIP TEST SCH ×4 (07:36→20:35)
[2019-10-26 08:00] VITALS: BP 131/92
[2019-10-26] MEDS: TRIAMCINOLONE ACETONIDE 0.1% CREAM 15GM TOP SCH ×2 (09:00→20:35)
[2019-10-26] MEDS: PANTOT AC/MIN OIL/PET HY-PHL OINT (AQUAPHOR) TOP SCH (09:00)
[2019-10-26] MEDS: ENOXAPARIN 30MG/0.3ML SYR SUBCUT SCH (09:15)
[2019-10-26 12:00] VITALS: BP 109/39
[2019-10-26 20:00] VITALS: BP 126/69
[2019-10-26] MEDS ORDERED: METOPROLOL TARTRATE 25MG TABLET PO SCH (21:30)
[2019-10-27] VITALS (7 sets, daily range): BP systolic 100–158; BP diastolic 38–100
[2019-10-27] MEDS: HYDROMORPHONE HCL/PF 2MG/ML CPJ IV PRN ×4 (03:33→20:49)
[2019-10-27] MEDS: DIPHENHYDRAMINE 50MG/ML VIAL IV PRN ×4 (04:19→21:13)
[2019-10-27] MEDS: BLOOD SUGAR DIAGNOSTIC STRIP TEST SCH ×4 (06:14→20:08)
[2019-10-27] MEDS: INSULIN LISPRO 100 UNITS/ML SUBCUT SCH ×4 (06:15→20:50)
[2019-10-27] MEDS: TRIAMCINOLONE ACETONIDE 0.1% CREAM 15GM TOP SCH ×2 (09:00→20:55)
[2019-10-27] MEDS: ENOXAPARIN 30MG/0.3ML SYR SUBCUT SCH (09:00)
[2019-10-27] MEDS: PANTOT AC/MIN OIL/PET HY-PHL OINT (AQUAPHOR) TOP SCH (09:00)
[2019-10-27] MEDS ORDERED: HEPARIN SODIUM 1,000 UNIT/1ML VIAL IV NR (12:00)
[2019-10-27 12:18] LABS: BASOPHILS % 0.7 % (0.0-2.0); EOSINOPHILS % 4.6 % (0.0-5.0); HEMATOCRIT. 24.2 % (36.0-48.0); HEMOGLOBIN. 7.9 g/dL (12.0-16.0); LYMPHOCYTES % 11.4 % (20.0-50.0); MEAN CORPUSCULAR HEMOGLOBIN 27.8 pg (28.0-32.0); MEAN PLATELET VOLUME 7.4 fl (7.4-10.4); MONOCYTES % 6.4 % (2.0-8.0); NEUTROPHILS % 76.9 % (40.0-76.0); PLATELET 455 x1000/uL (130-400); RED BLOOD CELL COUNT 2.84 mill/uL (4.2-5.4); RED CELL DISTRIBUTION WIDTH 17.4 % (11.6-14.6)
[2019-10-27] MEDS: LORAZEPAM 2MG/ML CPJ IV PRN (13:35)
[2019-10-27] MEDS ORDERED: LEVOFLOXACIN 500MG PREMIX 100 ML IV SCH (14:00)
[2019-10-28] MEDS ORDERED: ENOXAPARIN 40MG/0.4ML SYR SUBCUT SCH (09:00)
[2020-01-13] MEDS ORDERED: CLOP75TA4 PO (01:41)
[2020-01-13] MEDS ORDERED: CINA60 PO (01:41)
== END 2019-10-27 22:40 | disposition home or self-care (01) | DRG 564 ==
LOC: ER 23:03 → 5WST 10-23 04:27 → ENRESERV 10-23 08:45
PROVIDERS: ADMIT Internal Medicine; ATTEND Internal Medicine
PROC: 5A1D70Z Performance of Urinary Filtration, Intermittent, Less than 6 Hours Per Day (ICD-10-PCS; principal; 2019-10-23)
PROC: 5A1D70Z Performance of Urinary Filtration, Intermittent, Less than 6 Hours Per Day (ICD-10-PCS; 2019-10-25)
PROC: 5A1D70Z Performance of Urinary Filtration, Intermittent, Less than 6 Hours Per Day (ICD-10-PCS; 2019-10-27)
DX: T87.44 Infection of amputation stump, left lower extremity (principal); N18.6 End stage renal disease; E87.1 Hypo-osmolality and hyponatremia; I13.2 Hypertensive heart and chronic kidney disease with heart failure and with stage 5 chronic kidney disease, or end stage renal disease; E46 Unspecified protein-calorie malnutrition; Y83.5 Amputation of limb(s) as the cause of abnormal reaction of the patient, or of later complication, without mention of misadventure at the time of the procedure; D64.9 Anemia, unspecified; E11.22 Type 2 diabetes mellitus with diabetic chronic kidney disease; E11.319 Type 2 diabetes mellitus with unspecified diabetic retinopathy without macular edema; E11.39 Type 2 diabetes mellitus with other diabetic ophthalmic complication; E11.51 Type 2 diabetes mellitus with diabetic peripheral angiopathy without gangrene; E87.5 Hyperkalemia; G89.29 Other chronic pain; H54.8 Legal blindness, as defined in USA; I50.9 Heart failure, unspecified; Z89.511 Acquired absence of right leg below knee; Z99.2 Dependence on renal dialysis; Z79.4 Long term (current) use of insulin; Y92.89 Other specified places as the place of occurrence of the external cause; Z88.2 Allergy status to sulfonamides; Z88.8 Allergy status to other drugs, medicaments and biological substances; Z88.6 Allergy status to analgesic agent; Z88.0 Allergy status to penicillin; Z91.013 Allergy to seafood; Z79.82 Long term (current) use of aspirin; Z79.899 Other long term (current) drug therapy; Z68.39 Body mass index [BMI] 39.0-39.9, adult; Z91.15 Patient's noncompliance with renal dialysis; Z03.818 Encounter for observation for suspected exposure to other biological agents ruled out
CPT/HCPCS: 36415; 71045; 73560; 80048; 80053; 82040; 82962; 83605; 84132; 84134; 85025; 86705; 86706; 86709; 86803; 87070; 87075; 87077; 87186; 87340; 93005; 99285; J0610; J1170; J1200; J1644; J1650; J1815; J1956; J2060; J2270; J2405; J3490; J7060; U0003-CS

== ENCOUNTER 2019-12-10 06:57 | Emergency (ER) | payer MEDICARE, MEDICAID ==
[~2019-12-10] VITALS: Ht 152.4 cm; Wt 82.0 kg
[2019-12-10] MEDS ORDERED: MORPHINE SULFATE 4 MG/ML CPJ (NOT FOR IM USE) IV ONE ×2 (08:45→10:00)
[2019-12-10 09:00] LABS: CHLORIDE 98 mEq/L (98-107)
[2019-12-10] MEDS ORDERED: DIPHENHYDRAMINE 50MG/ML VIAL IV ONE (09:00)
[2019-12-10 09:02] LABS: BASOPHILS % 0.6 % (0.0-2.0); HEMATOCRIT. 28.8 % (36.0-48.0); HEMOGLOBIN. 9.2 g/dL (12.0-16.0); LYMPHOCYTES % 8.2 % (20.0-50.0); MEAN CORPUSCULAR HEMOGLOBIN 26.2 pg (28.0-32.0); MEAN CORPUSCULAR VOLUME 81.7 fL (81.0-99.0); MEAN PLATELET VOLUME 6.3 fl (7.4-10.4); MONOCYTES % 7.1 % (2.0-8.0); NEUTROPHILS % 81.1 % (40.0-76.0); PLATELET 598 x1000/uL (130-400); RED BLOOD CELL COUNT 3.53 mill/uL (4.2-5.4); RED CELL DISTRIBUTION WIDTH 18.3 % (11.6-14.6)
[2019-12-10 12:36] VITALS: BP 136/58
[2020-01-13] MEDS ORDERED: CINA60 PO (01:41)
[2020-01-13] MEDS ORDERED: CLOP75TA4 PO (01:41)
== END 2019-12-10 12:48 | disposition home or self-care (01) ==
LOC: ER 07:09
DX: G89.18 Other acute postprocedural pain (principal); R07.89 Other chest pain; E11.22 Type 2 diabetes mellitus with diabetic chronic kidney disease; I12.0 Hypertensive chronic kidney disease with stage 5 chronic kidney disease or end stage renal disease; N18.6 End stage renal disease; Z99.2 Dependence on renal dialysis; Z90.710 Acquired absence of both cervix and uterus; Z89.611 Acquired absence of right leg above knee; Z89.512 Acquired absence of left leg below knee; Z79.82 Long term (current) use of aspirin; Z79.4 Long term (current) use of insulin; Z91.013 Allergy to seafood; Z88.6 Allergy status to analgesic agent; Z88.2 Allergy status to sulfonamides; Z88.0 Allergy status to penicillin
CPT/HCPCS: 36415; 71045; 80053; 83880; 84484; 85025; 93005; 96374; 96375; 96376; 99285; J1200; J2270

== ENCOUNTER 2020-01-01 07:27 | Emergency (ER) | payer MEDICARE, MEDICAID ==
[~2020-01-01] VITALS: Ht 127 cm; Wt 61.0 kg
[2020-01-01] MEDS ORDERED: ONDANSETRON HCL 4MG/2ML INJ IV STA (08:28)
[2020-01-01] MEDS ORDERED: MORPHINE SULFATE 4 MG/ML CPJ (NOT FOR IM USE) IV STA (08:28)
[2020-01-01] MEDS ORDERED: DIPHENHYDRAMINE 50MG/ML VIAL IV ONE (09:15)
[2020-01-01 10:25] VITALS: BP 131/78
== END 2020-01-01 10:25 | disposition home or self-care (01) ==
LOC: ER 07:36
DX: S61.211D Laceration without foreign body of left index finger without damage to nail, subsequent encounter (principal); X58.XXXD Exposure to other specified factors, subsequent encounter; N18.6 End stage renal disease; Z99.2 Dependence on renal dialysis; E11.9 Type 2 diabetes mellitus without complications; Z79.899 Other long term (current) drug therapy; Z88.2 Allergy status to sulfonamides; Z88.0 Allergy status to penicillin; Z88.6 Allergy status to analgesic agent
CPT/HCPCS: 96374; 96375; 99284; J1200; J2270; J2405

== ENCOUNTER 2020-02-04 09:07 | Inpatient (IN) | payer MEDICARE, MEDICAID ==
[~2020-02-04] VITALS: Ht 160 cm; Wt 80.5 kg
[~2020-02-04 09:07] MED LIST changes: +CINA60 PO; +CLOP75TA4 PO
[2020-02-04] MEDS ORDERED: VANCOMYCIN 1 G PREMIX 200 ML IV ONE (09:45)
[2020-02-04] MEDS ORDERED: MORPHINE SULFATE 4 MG/ML CPJ (NOT FOR IM USE) IV ONE ×2 (10:30→22:15)
[2020-02-04] MEDS ORDERED: MEROPENEM 1,000 MG in SODIUM CHLORIDE 0.9% 100 ML IV SCH (10:30)
[2020-02-04] MEDS ORDERED: CLINDAMYCIN 600 MG in DEXTROSE 5% WATER 50 ML IV ONE (10:30)
[2020-02-04] MEDS ORDERED: DIPHENHYDRAMINE 50MG/ML VIAL IV ONE (10:30)
[2020-02-04] MEDS ORDERED: CLINDAMYCIN 600MG PREMIX 50 ML IV SCH ×2 (10:45)
[2020-02-04 11:00] LABS: BASOPHILS % 0.7 % (0.0-2.0); EOSINOPHILS % 2.7 % (0.0-5.0); HEMATOCRIT. 33.8 % (36.0-48.0); LYMPHOCYTES % 13.7 % (20.0-50.0); MEAN CORPUSCULAR HEMOGLOBIN 28.5 pg (28.0-32.0); MEAN CORPUSCULAR VOLUME 87.6 fL (81.0-99.0); MEAN PLATELET VOLUME 7.6 fl (7.4-10.4); MONOCYTES % 5.5 % (2.0-8.0); NEUTROPHILS % 77.4 % (40.0-76.0); PLATELET 385 x1000/uL (130-400); RED BLOOD CELL COUNT 3.86 mill/uL (4.2-5.4); RED CELL DISTRIBUTION WIDTH 19.8 % (11.6-14.6)
[2020-02-04 11:04] LABS: CHLORIDE 94 mEq/L (98-107)
[2020-02-04] MEDS ORDERED: FENTANYL CITRATE/PF 50MCG/ML 2ML VIAL IV ONE (14:30)
[2020-02-04] MEDS ORDERED: INSULIN REGULAR (HUMULIN R) 300UNITS/3ML IV ONE (14:45)
[2020-02-04] MEDS ORDERED: DEXTROSE 50% WATER 50ML SYRINGE IV ONE (14:45)
[2020-02-04] MEDS ORDERED: SODIUM BICARBONATE 8.4% 1 MEQ/ML 50ML SYR IV ONE (14:45)
[2020-02-04] MEDS ORDERED: DIPHENHYDRAMINE 50MG CAPSULE PO ONE (16:45)
[2020-02-04 16:53] LABS: INR 1.1; PROTHROMBIN TIME 11.3 sec (9.6-11.0)
[2020-02-04] MEDS ORDERED: GUAIFENESIN 200MG/10ML SUGAR FREE UDC PO PRN (19:15)
[2020-02-04] MEDS ORDERED: DIPHENHYDRAMINE 50MG/ML VIAL IV PRN (19:15)
[2020-02-04] MEDS ORDERED: DOCUSATE SODIUM 100MG CAPSULE PO PRN (19:15)
[2020-02-04] MEDS ORDERED: OXYCODONE HCL/ACETAMINOPHEN 5/325MG TABLET PO PRN (19:30)
[2020-02-04] MEDS: METRONIDAZOLE 500 MG PREMIX 100 ML IV SCH ×2 (20:00→22:14)
[2020-02-04] MEDS ORDERED: LEVOFLOXACIN 500MG PREMIX 100 ML IV NR (20:00)
[2020-02-04] MEDS: MORPHINE SULFATE 2 MG/ML CPJ (NOT FOR IM USE) IV PRN (20:36)
[2020-02-04 21:00] VITALS: BP 108/71
[2020-02-04 21:12] VITALS: BP 108/71
[2020-02-04] MEDS: DIPHENHYDRAMINE 50MG/ML VIAL IV PRN (22:15)
[2020-02-04] MEDS: VANCOMYCIN 1 G PREMIX 200 ML IV NR (23:00)
[2020-02-04] MEDS ORDERED: METO25TA6 PO (23:10)
[2020-02-05] VITALS: BP 114/54
[2020-02-05] MEDS: VANCOMYCIN 1 G PREMIX 200 ML IV NR (00:03)
[2020-02-05] MEDS ORDERED: DEXTROSE 50% WATER 50ML SYRINGE IV PRN (01:00)
[2020-02-05] MEDS: MORPHINE SULFATE 2 MG/ML CPJ (NOT FOR IM USE) IV PRN ×6 (03:41→21:46)
[2020-02-05 04:00] VITALS: BP 104/79
[2020-02-05] MEDS: METRONIDAZOLE 500 MG PREMIX 100 ML IV SCH ×3 (04:00→23:12)
[2020-02-05] MEDS: DIPHENHYDRAMINE 50MG/ML VIAL IV PRN ×3 (04:26→20:43)
[2020-02-05] MEDS: BLOOD SUGAR DIAGNOSTIC STRIP TEST SCH ×4 (06:29→20:52)
[2020-02-05] MEDS: INSULIN LISPRO 100 UNITS/ML SUBCUT SCH ×7 (07:20→20:45)
[2020-02-05] MEDS: PANTOPRAZOLE 40MG DR TABLET PO SCH ×2 (07:50→08:52)
[2020-02-05 08:47] VITALS: BP 109/60
[2020-02-05] MEDS: ASPIRIN 81MG EC TABLET PO SCH (08:52)
[2020-02-05] MEDS: CALCIUM ACETATE 667MG CAPSULE PO SCH ×3 (08:53→17:25)
[2020-02-05] MEDS: METOPROLOL TARTRATE 25MG TABLET PO SCH ×2 (08:53→21:00)
[2020-02-05] MEDS: CLOPIDOGREL 75MG TABLET PO SCH (08:53)
[2020-02-05] MEDS: CINACALCET HCL 60MG TABLET PO SCH ×3 (08:53→17:25)
[2020-02-05 10:32] LABS: BASOPHILS % 0.3 % (0.0-2.0); HEMOGLOBIN. 9.9 g/dL (12.0-16.0); LYMPHOCYTES % 7.1 % (20.0-50.0); MEAN CORPUSCULAR HEMOGLOBIN 28.5 pg (28.0-32.0); MEAN CORPUSCULAR VOLUME 88.7 fL (81.0-99.0); MEAN PLATELET VOLUME 7.1 fl (7.4-10.4); MONOCYTES % 6.2 % (2.0-8.0); NEUTROPHILS % 83.4 % (40.0-76.0); PLATELET 368 x1000/uL (130-400); RED BLOOD CELL COUNT 3.49 mill/uL (4.2-5.4); RED CELL DISTRIBUTION WIDTH 19.9 % (11.6-14.6)
[2020-02-05] MEDS: INSULIN GLARGINE UD 100 UNITS/ML SYR SUBCUT SCH ×2 (10:54→11:15)
[2020-02-05 12:04] VITALS: BP 110/52
[2020-02-05 16:05] VITALS: BP 120/58
[2020-02-05] MEDS: SODIUM HYPOCHLORITE 0.125% 473ML SOLUTION TOP SCH (16:27)
[2020-02-05] MEDS: DIPHENHYDRAMINE 25MG CAPSULE PO PRN (20:20)
[2020-02-06] MEDS: DIPHENHYDRAMINE 50MG/ML VIAL IV PRN ×6 (00:21→22:41)
[2020-02-06] MEDS ORDERED: OXYCODONE HCL/ACETAMINOPHEN 5/325MG TABLET PO PRN (00:30)
[2020-02-06] MEDS: MORPHINE SULFATE 2 MG/ML CPJ (NOT FOR IM USE) IV PRN ×5 (01:39→22:10)
[2020-02-06] MEDS: BLOOD SUGAR DIAGNOSTIC STRIP TEST SCH ×5 (06:37→21:18)
[2020-02-06] MEDS: METRONIDAZOLE 500 MG PREMIX 100 ML IV SCH ×4 (06:37→22:03)
[2020-02-06 08:00] VITALS: BP 141/52
[2020-02-06] MEDS: CALCIUM ACETATE 667MG CAPSULE PO SCH ×3 (08:44→17:05)
[2020-02-06] MEDS: CINACALCET HCL 60MG TABLET PO SCH ×3 (08:45→17:05)
[2020-02-06] MEDS: CLOPIDOGREL 75MG TABLET PO SCH (08:45)
[2020-02-06] MEDS: ASPIRIN 81MG EC TABLET PO SCH (08:45)
[2020-02-06] MEDS: INSULIN LISPRO 100 UNITS/ML SUBCUT SCH ×9 (08:46→21:00)
[2020-02-06] MEDS: SODIUM HYPOCHLORITE 0.125% 473ML SOLUTION TOP SCH (08:50)
[2020-02-06] MEDS: METOPROLOL TARTRATE 25MG TABLET PO SCH ×2 (08:51→21:00)
[2020-02-06] MEDS: LEVOFLOXACIN 250MG PREMIX 50 ML IV SCH (10:40)
[2020-02-06] MEDS ORDERED: LEVO750T46 PO (11:36)
[2020-02-06] MEDS ORDERED: OXYCODONE HCL 5MG TABLET PO PRN (11:45)
[2020-02-06 12:00] VITALS: BP 104/43
[2020-02-06 16:00] VITALS: BP 109/48
[2020-02-06] MEDS: ENOXAPARIN 30MG/0.3ML SYR SUBCUT SCH ×2 (16:00→17:05)
[2020-02-06 20:00] VITALS: BP 133/76
[2020-02-07] VITALS: BP 110/57
[2020-02-07 00:35] LABS: BASOPHILS % 0.5 % (0.0-2.0); EOSINOPHILS % 5.4 % (0.0-5.0); HEMATOCRIT. 28.9 % (36.0-48.0); HEMOGLOBIN. 9.4 g/dL (12.0-16.0); MEAN CORPUSCULAR HEMOGLOBIN 28.8 pg (28.0-32.0); MEAN CORPUSCULAR VOLUME 88.3 fL (81.0-99.0); MEAN PLATELET VOLUME 7.3 fl (7.4-10.4); MONOCYTES % 6.8 % (2.0-8.0); NEUTROPHILS % 73.3 % (40.0-76.0); PLATELET 360 x1000/uL (130-400); RED BLOOD CELL COUNT 3.27 mill/uL (4.2-5.4); RED CELL DISTRIBUTION WIDTH 19.2 % (11.6-14.6)
[2020-02-07 04:00] VITALS: BP 100/42
[2020-02-07] MEDS: MORPHINE SULFATE 2 MG/ML CPJ (NOT FOR IM USE) IV PRN ×2 (04:46→10:49)
[2020-02-07] MEDS: DIPHENHYDRAMINE 50MG/ML VIAL IV PRN ×3 (06:29→21:20)
[2020-02-07] MEDS: FAMOTIDINE 20MG TABLET PO SCH (06:31)
[2020-02-07] MEDS: METRONIDAZOLE 500 MG PREMIX 100 ML IV SCH ×3 (06:31→22:00)
[2020-02-07] MEDS: BLOOD SUGAR DIAGNOSTIC STRIP TEST SCH ×4 (06:32→20:06)
[2020-02-07] MEDS: INSULIN LISPRO 100 UNITS/ML SUBCUT SCH ×7 (06:41→20:25)
[2020-02-07] MEDS: CALCIUM ACETATE 667MG CAPSULE PO SCH ×3 (07:58→17:07)
[2020-02-07] MEDS: CLOPIDOGREL 75MG TABLET PO SCH (07:58)
[2020-02-07] MEDS: CINACALCET HCL 60MG TABLET PO SCH ×3 (07:58→17:00)
[2020-02-07] MEDS: METOPROLOL TARTRATE 25MG TABLET PO SCH ×2 (07:59→20:30)
[2020-02-07] MEDS: ASPIRIN 81MG EC TABLET PO SCH (07:59)
[2020-02-07 08:00] VITALS: BP 133/58
[2020-02-07] MEDS: SODIUM HYPOCHLORITE 0.125% 473ML SOLUTION TOP SCH (08:00)
[2020-02-07 08:55] LABS: BASOPHILS % 0.3 % (0.0-2.0); EOSINOPHILS % 4.4 % (0.0-5.0); HEMATOCRIT. 28.1 % (36.0-48.0); LYMPHOCYTES % 14.3 % (20.0-50.0); MEAN CORPUSCULAR HEMOGLOBIN 28.8 pg (28.0-32.0); MEAN CORPUSCULAR VOLUME 89.6 fL (81.0-99.0); MEAN PLATELET VOLUME 6.9 fl (7.4-10.4); MONOCYTES % 7.4 % (2.0-8.0); NEUTROPHILS % 73.6 % (40.0-76.0); PLATELET 324 x1000/uL (130-400); RED BLOOD CELL COUNT 3.14 mill/uL (4.2-5.4); RED CELL DISTRIBUTION WIDTH 19.3 % (11.6-14.6)
[2020-02-07] MEDS: INSULIN GLARGINE UD 100 UNITS/ML SYR SUBCUT SCH (09:49)
[2020-02-07 12:00] VITALS: BP 134/62
[2020-02-07] MEDS ORDERED: MORPHINE SULFATE 2 MG/ML CPJ (NOT FOR IM USE) IV NR (12:30)
[2020-02-07] MEDS ORDERED: VANCOMYCIN 750 MG PREMIX 150 ML IV SCH ×2 (13:00→21:00)
[2020-02-07] MEDS: ENOXAPARIN 30MG/0.3ML SYR SUBCUT SCH (15:35)
[2020-02-07 16:00] VITALS: BP 142/58
[2020-02-07] MEDS ORDERED: SODIUM POLYSTYRENE SULFONATE 15 G/60 ML BOT PO ONE (16:00)
[2020-02-07] MEDS ORDERED: SODIUM BICARBONATE 8.4% 1 MEQ/ML 50ML SYR IV ONE (16:30)
[2020-02-07] MEDS ORDERED: INSULIN REGULAR (HUMULIN R) UD 100 UNITS/ML SYR IV ONE (17:00)
[2020-02-07] MEDS ORDERED: DEXTROSE 50% WATER 50ML SYRINGE IV ONE (17:00)
[2020-02-07] MEDS: HYDROMORPHONE HCL/PF 2MG/ML CPJ IV PRN ×2 (17:20→23:34)
[2020-02-07 20:00] VITALS: BP 160/123
[2020-02-08] VITALS: BP 105/42
[2020-02-08] MEDS: DIPHENHYDRAMINE 50MG/ML VIAL IV PRN ×4 (01:23→15:35)
[2020-02-08 04:00] VITALS: BP 113/46
[2020-02-08] MEDS: METRONIDAZOLE 500 MG PREMIX 100 ML IV SCH ×2 (06:03→15:35)
[2020-02-08] MEDS: HYDROMORPHONE HCL/PF 2MG/ML CPJ IV PRN ×2 (06:50→13:15)
[2020-02-08] MEDS: BLOOD SUGAR DIAGNOSTIC STRIP TEST SCH ×2 (06:54→13:11)
[2020-02-08] MEDS: FAMOTIDINE 20MG TABLET PO SCH ×2 (06:54→07:20)
[2020-02-08] MEDS: INSULIN LISPRO 100 UNITS/ML SUBCUT SCH ×4 (06:55→13:11)
[2020-02-08 08:13] VITALS: BP 127/49
[2020-02-08] MEDS: ASPIRIN 81MG EC TABLET PO SCH (08:13)
[2020-02-08] MEDS: CALCIUM ACETATE 667MG CAPSULE PO SCH ×2 (08:13→13:09)
[2020-02-08] MEDS: CLOPIDOGREL 75MG TABLET PO SCH (08:13)
[2020-02-08] MEDS: CINACALCET HCL 60MG TABLET PO SCH ×2 (08:14→13:09)
[2020-02-08] MEDS: SODIUM HYPOCHLORITE 0.125% 473ML SOLUTION TOP SCH (08:14)
[2020-02-08] MEDS: METOPROLOL TARTRATE 25MG TABLET PO SCH (08:14)
[2020-02-08] MEDS: INSULIN GLARGINE UD 100 UNITS/ML SYR SUBCUT SCH ×2 (10:00→10:33)
[2020-02-08] MEDS: LEVOFLOXACIN 250MG PREMIX 50 ML IV SCH (10:32)
[2020-02-08] MEDS: DIPHENHYDRAMINE 25MG CAPSULE PO PRN (10:37)
[2020-02-08 12:08] VITALS: BP 89/40
[2020-02-08] MEDS ORDERED: SODIUM CHLORIDE 0.9% 100 ML IV NR (13:00)
[2020-02-08 13:21] VITALS: BP 115/63
[2020-02-08] MEDS: ENOXAPARIN 30MG/0.3ML SYR SUBCUT SCH (15:35)
[2020-02-08 16:06] VITALS: BP 133/94
== END 2020-02-08 17:01 | disposition home or self-care (01) | DRG 564 ==
LOC: ER 09:34 → 6WST 15:12 → EDBEDREQ 15:25 → EDBEDREQSVC 15:25 → ENRESERV 19:26
PROVIDERS: ADMIT Family Medicine; ATTEND Family Medicine
PROC: 5A1D70Z Performance of Urinary Filtration, Intermittent, Less than 6 Hours Per Day (ICD-10-PCS; principal; 2020-02-04)
PROC: 5A1D70Z Performance of Urinary Filtration, Intermittent, Less than 6 Hours Per Day (ICD-10-PCS; 2020-02-06)
PROC: 5A1D70Z Performance of Urinary Filtration, Intermittent, Less than 6 Hours Per Day (ICD-10-PCS; 2020-02-07)
DX: T87.44 Infection of amputation stump, left lower extremity (principal); N18.6 End stage renal disease; M86.8X8 Other osteomyelitis, other site; I50.32 Chronic diastolic (congestive) heart failure; E87.1 Hypo-osmolality and hyponatremia; I13.2 Hypertensive heart and chronic kidney disease with heart failure and with stage 5 chronic kidney disease, or end stage renal disease; L03.90 Cellulitis, unspecified; E87.2 Acidosis; E11.69 Type 2 diabetes mellitus with other specified complication; Z89.612 Acquired absence of left leg above knee; H54.8 Legal blindness, as defined in USA; E11.319 Type 2 diabetes mellitus with unspecified diabetic retinopathy without macular edema; E11.21 Type 2 diabetes mellitus with diabetic nephropathy; E78.1 Pure hyperglyceridemia; E87.5 Hyperkalemia; E11.22 Type 2 diabetes mellitus with diabetic chronic kidney disease; E11.42 Type 2 diabetes mellitus with diabetic polyneuropathy; E11.51 Type 2 diabetes mellitus with diabetic peripheral angiopathy without gangrene; E78.5 Hyperlipidemia, unspecified; Y83.5 Amputation of limb(s) as the cause of abnormal reaction of the patient, or of later complication, without mention of misadventure at the time of the procedure; Z88.1 Allergy status to other antibiotic agents; Z89.511 Acquired absence of right leg below knee; Z89.611 Acquired absence of right leg above knee; Z91.14 Patient's other noncompliance with medication regimen; Z99.2 Dependence on renal dialysis; Z88.0 Allergy status to penicillin; Z88.2 Allergy status to sulfonamides; Z88.8 Allergy status to other drugs, medicaments and biological substances; Y92.89 Other specified places as the place of occurrence of the external cause; Z79.899 Other long term (current) drug therapy
CPT/HCPCS: 36415; 73700; 80048; 80053; 80202; 82962; 83036; 83605; 84145; 84484; 85025; 85651; 86140; 93005; 99291; J1170; J1200; J1650; J1815; J1956; J2185; J2270; J3010; J3370; J3490; J7050; J7060; Q0163

== ENCOUNTER 2020-02-20 23:41 | Inpatient (IN) | payer MEDICARE, MEDICAID ==
[~2020-02-20] VITALS: Ht 165.1 cm; Wt 85.3 kg
[~2020-02-20 23:41] MED LIST changes: +LEVO750T46 PO; -METO-396 PO; +METO25TA6 PO
[2020-02-21] MEDS ORDERED: ONDANSETRON HCL 4MG/2ML INJ IV STA (00:55)
[2020-02-21] MEDS ORDERED: MORPHINE SULFATE 4 MG/ML CPJ (NOT FOR IM USE) IV STA (00:55)
[2020-02-21] MEDS ORDERED: VANCOMYCIN 1 G PREMIX 200 ML IV ONE (01:00)
[2020-02-21 01:44] LABS: BASOPHILS % 0.4 % (0.0-2.0); EOSINOPHILS % 3.9 % (0.0-5.0); HEMATOCRIT. 32.6 % (36.0-48.0); HEMOGLOBIN. 10.7 g/dL (12.0-16.0); MEAN CORPUSCULAR VOLUME 88.7 fL (81.0-99.0); MEAN PLATELET VOLUME 7.4 fl (7.4-10.4); MONOCYTES % 4.7 % (2.0-8.0); PLATELET 433 x1000/uL (130-400); RED BLOOD CELL COUNT 3.67 mill/uL (4.2-5.4); RED CELL DISTRIBUTION WIDTH 18.1 % (11.6-14.6)
[2020-02-21 01:54] LABS: CHLORIDE 94 mEq/L (98-107)
[2020-02-21] MEDS ORDERED: DIPHENHYDRAMINE 50MG/ML VIAL IV ONE ×2 (02:15→10:00)
[2020-02-21] MEDS ORDERED: MORPHINE SULFATE 2 MG/ML CPJ (NOT FOR IM USE) IV PRN (07:30)
[2020-02-21] MEDS ORDERED: MEROPENEM 1,000 MG in SODIUM CHLORIDE 0.9% 100 ML IV SCH (07:30)
[2020-02-21] MEDS ORDERED: MAGNESIUM/ALUMINUM HYDROXIDE/SIMETHICONE 30ML UDC PO PRN (07:30)
[2020-02-21] MEDS ORDERED: ACETAMINOPHEN 325MG TABLET PO PRN ×2 (07:30)
[2020-02-21] MEDS ORDERED: DEXTROSE 50% WATER 50ML SYRINGE IV PRN (07:30)
[2020-02-21] MEDS ORDERED: NITROGLYCERIN 0.4MG TABLET SL SL PRN (07:30)
[2020-02-21] MEDS ORDERED: DOCUSATE SODIUM 100MG CAPSULE PO PRN (07:30)
[2020-02-21] MEDS ORDERED: IPRATROPIUM/ALBUTEROL 0.5-3(2.5)MG/3ML NEB NEB PRN (07:30)
[2020-02-21] MEDS ORDERED: ZOLPIDEM TARTRATE 5MG TABLET PO PRN (07:30)
[2020-02-21] MEDS ORDERED: CLONIDINE 0.1MG TABLET PO PRN (07:30)
[2020-02-21] MEDS ORDERED: GUAIFENESIN 200MG/10ML SUGAR FREE UDC PO PRN (07:30)
[2020-02-21] MEDS ORDERED: ONDANSETRON HCL 4MG/2ML INJ IV PRN (07:30)
[2020-02-21] MEDS: METOCLOPRAMIDE 10MG/10 ML UDC PO SCH ×3 (07:50→16:44)
[2020-02-21] MEDS: ENOXAPARIN 30MG/0.3ML SYR SUBCUT SCH (08:00)
[2020-02-21] MEDS: INSULIN LISPRO 100 UNITS/ML SUBCUT SCH ×5 (08:20→22:14)
[2020-02-21] MEDS: PANTOPRAZOLE SODIUM 40 MG/VIAL IV SCH (08:57)
[2020-02-21] MEDS: BLOOD SUGAR DIAGNOSTIC STRIP TEST SCH ×4 (08:57→21:00)
[2020-02-21] MEDS: CLOPIDOGREL 75MG TABLET PO SCH (08:57)
[2020-02-21] MEDS: ASPIRIN 81MG EC TABLET PO SCH (08:57)
[2020-02-21 08:59] VITALS: BP 128/55
[2020-02-21 09:00] VITALS: BP 128/55
[2020-02-21] MEDS ORDERED: MEROPENEM 500MG in NORMAL SALINE 50ML IV SCH (09:00)
[2020-02-21] MEDS ORDERED: INSULIN GLARGINE UD 100 UNITS/ML SYR SUBCUT SCH (10:00)
[2020-02-21] MEDS: MEROPENEM 500MG in NORMAL SALINE 50ML IV SCH (10:36)
[2020-02-21 12:00] VITALS: BP 95/54
[2020-02-21] MEDS ORDERED: DIPHENHYDRAMINE 50MG CAPSULE PO PRN (12:00)
[2020-02-21] MEDS ORDERED: DIPHENHYDRAMINE 50MG/ML VIAL IV PRN ×2 (12:30→12:35)
[2020-02-21] MEDS: HYDROMORPHONE HCL/PF 2MG/ML CPJ IV PRN ×2 (12:34→18:34)
[2020-02-21 15:43] LABS: CREATINE KINASE 55 IU/L (26-192); CREATINE KINASE MB FRACTION < 1.0 ng/mL (0.5-3.6)
[2020-02-21 16:00] VITALS: BP 126/55
[2020-02-21] MEDS: DIPHENHYDRAMINE 50MG/ML VIAL IV PRN (18:34)
[2020-02-21 20:00] VITALS: BP 123/62
[2020-02-21 23:25] LABS: CREATINE KINASE 50 IU/L (26-192)
[2020-02-21 23:27] LABS: CREATINE KINASE MB FRACTION < 1.0 ng/mL (0.5-3.6)
[2020-02-22] VITALS: BP 125/61
[2020-02-22] MEDS: DIPHENHYDRAMINE 50MG/ML VIAL IV PRN ×4 (00:46→18:45)
[2020-02-22] MEDS: HYDROMORPHONE HCL/PF 2MG/ML CPJ IV PRN ×4 (00:46→18:45)
[2020-02-22] MEDS: METOCLOPRAMIDE 10MG/10 ML UDC PO SCH ×3 (05:55→16:45)
[2020-02-22] MEDS: BLOOD SUGAR DIAGNOSTIC STRIP TEST SCH ×4 (06:36→21:18)
[2020-02-22] MEDS: INSULIN LISPRO 100 UNITS/ML SUBCUT SCH ×4 (06:45→21:19)
[2020-02-22 08:00] VITALS: BP 113/86
[2020-02-22] MEDS: ENOXAPARIN 30MG/0.3ML SYR SUBCUT SCH (08:00)
[2020-02-22 08:16] LABS: BASOPHILS % 0.6 % (0.0-2.0); EOSINOPHILS % 3.1 % (0.0-5.0); HEMATOCRIT. 34.6 % (36.0-48.0); HEMOGLOBIN. 11.1 g/dL (12.0-16.0); MEAN CORPUSCULAR HEMOGLOBIN 28.6 pg (28.0-32.0); MEAN CORPUSCULAR VOLUME 89.4 fL (81.0-99.0); MEAN PLATELET VOLUME 7.3 fl (7.4-10.4); MONOCYTES % 3.9 % (2.0-8.0); NEUTROPHILS % 81.4 % (40.0-76.0); PLATELET 414 x1000/uL (130-400); RED BLOOD CELL COUNT 3.87 mill/uL (4.2-5.4); RED CELL DISTRIBUTION WIDTH 17.9 % (11.6-14.6)
[2020-02-22 08:22] LABS: CHLORIDE 96 mEq/L (98-107)
[2020-02-22 08:29] LABS: PHOSPHORUS 4.6 mg/dL (2.5-4.9)
[2020-02-22] MEDS: ASPIRIN 81MG EC TABLET PO SCH (09:01)
[2020-02-22] MEDS: PANTOPRAZOLE SODIUM 40 MG/VIAL IV SCH (09:01)
[2020-02-22] MEDS: CLOPIDOGREL 75MG TABLET PO SCH (09:01)
[2020-02-22 12:00] VITALS: BP 84/62
[2020-02-22] MEDS ORDERED: INSULIN GLARGINE UD 100 UNITS/ML SYR SUBCUT NR (12:00)
[2020-02-22] MEDS: MEROPENEM 500MG in NORMAL SALINE 50ML IV SCH (12:45)
[2020-02-22 16:00] VITALS: BP 93/39
[2020-02-22 20:00] VITALS: BP 112/84
[2020-02-23] VITALS: BP 124/53
[2020-02-23] MEDS: DIPHENHYDRAMINE 50MG/ML VIAL IV PRN ×3 (00:52→12:35)
[2020-02-23] MEDS: HYDROMORPHONE HCL/PF 2MG/ML CPJ IV PRN ×4 (00:52→18:50)
[2020-02-23] MEDS: METOCLOPRAMIDE 10MG/10 ML UDC PO SCH ×3 (06:22→16:45)
[2020-02-23] MEDS: BLOOD SUGAR DIAGNOSTIC STRIP TEST SCH ×4 (06:22→20:28)
[2020-02-23] MEDS: INSULIN LISPRO 100 UNITS/ML SUBCUT SCH ×4 (06:33→20:34)
[2020-02-23] MEDS: ENOXAPARIN 30MG/0.3ML SYR SUBCUT SCH (08:00)
[2020-02-23 08:23] VITALS: BP 114/94
[2020-02-23] MEDS: FAMOTIDINE 20MG/2ML VIAL IV SCH (09:10)
[2020-02-23] MEDS: ASPIRIN 81MG EC TABLET PO SCH (09:10)
[2020-02-23] MEDS: CLOPIDOGREL 75MG TABLET PO SCH (09:10)
[2020-02-23] MEDS: INSULIN GLARGINE UD 100 UNITS/ML SYR SUBCUT SCH (10:35)
[2020-02-23] MEDS: MEROPENEM 500MG in NORMAL SALINE 50ML IV SCH (12:35)
[2020-02-23] MEDS: DIPHENHYDRAMINE 50MG/ML VIAL IV NR ×2 (14:51→18:49)
[2020-02-23] MEDS ORDERED: HEPARIN SODIUM 1,000 UNIT/1ML VIAL IV NR (15:30)
[2020-02-23 16:00] VITALS: BP 84/39
[2020-02-23 16:09] LABS: BASOPHILS % 0.7 % (0.0-2.0); EOSINOPHILS % 4.7 % (0.0-5.0); HEMATOCRIT. 31.3 % (36.0-48.0); HEMOGLOBIN. 10.2 g/dL (12.0-16.0); LYMPHOCYTES % 15.3 % (20.0-50.0); MEAN CORPUSCULAR VOLUME 89.2 fL (81.0-99.0); MEAN PLATELET VOLUME 7.5 fl (7.4-10.4); MONOCYTES % 4.8 % (2.0-8.0); NEUTROPHILS % 74.5 % (40.0-76.0); PLATELET 377 x1000/uL (130-400); RED BLOOD CELL COUNT 3.51 mill/uL (4.2-5.4); RED CELL DISTRIBUTION WIDTH 17.7 % (11.6-14.6)
[2020-02-23 18:37] VITALS: BP 109/64
[2020-02-23 20:00] VITALS: BP 96/73
[2020-02-24] VITALS: BP 156/112
[2020-02-24] MEDS: DIPHENHYDRAMINE 50MG/ML VIAL IV PRN ×3 (00:30→12:20)
[2020-02-24] MEDS: HYDROMORPHONE HCL/PF 2MG/ML CPJ IV PRN ×2 (00:43→06:26)
[2020-02-24 04:00] VITALS: BP 152/126
[2020-02-24] MEDS: METOCLOPRAMIDE 10MG/10 ML UDC PO SCH ×2 (05:08→11:45)
[2020-02-24] MEDS: BLOOD SUGAR DIAGNOSTIC STRIP TEST SCH ×2 (05:19→12:14)
[2020-02-24] MEDS: INSULIN LISPRO 100 UNITS/ML SUBCUT SCH ×2 (05:59→12:21)
[2020-02-24 08:00] VITALS: BP 128/54
[2020-02-24] MEDS: ENOXAPARIN 30MG/0.3ML SYR SUBCUT SCH (08:00)
[2020-02-24] MEDS: FAMOTIDINE 20MG/2ML VIAL IV SCH (09:13)
[2020-02-24] MEDS: ASPIRIN 81MG EC TABLET PO SCH (09:13)
[2020-02-24] MEDS: CLOPIDOGREL 75MG TABLET PO SCH (09:13)
[2020-02-24] MEDS: INSULIN GLARGINE UD 100 UNITS/ML SYR SUBCUT SCH (09:18)
[2020-02-24 12:00] VITALS: BP 105/48
[2020-02-24] MEDS: MEROPENEM 500MG in NORMAL SALINE 50ML IV SCH (12:20)
[2020-02-24 12:50] VITALS: BP 105/48
== END 2020-02-24 15:01 | disposition home or self-care (01) | DRG 871 ==
LOC: ER 23:41 → 5WST 02-21 04:44 → ENRESERV 02-21 07:43
PROVIDERS: ADMIT Internal Medicine; ATTEND Internal Medicine
PROC: 5A1D70Z Performance of Urinary Filtration, Intermittent, Less than 6 Hours Per Day (ICD-10-PCS; principal; 2020-02-21)
PROC: 5A1D70Z Performance of Urinary Filtration, Intermittent, Less than 6 Hours Per Day (ICD-10-PCS; 2020-02-23)
DX: A41.9 Sepsis, unspecified organism (principal); N18.6 End stage renal disease; L03.90 Cellulitis, unspecified; E87.1 Hypo-osmolality and hyponatremia; I13.2 Hypertensive heart and chronic kidney disease with heart failure and with stage 5 chronic kidney disease, or end stage renal disease; M86.9 Osteomyelitis, unspecified; T87.40 Infection of amputation stump, unspecified extremity; E87.5 Hyperkalemia; E11.65 Type 2 diabetes mellitus with hyperglycemia; D64.9 Anemia, unspecified; E11.22 Type 2 diabetes mellitus with diabetic chronic kidney disease; R23.4 Changes in skin texture; E11.319 Type 2 diabetes mellitus with unspecified diabetic retinopathy without macular edema; D63.8 Anemia in other chronic diseases classified elsewhere; E11.43 Type 2 diabetes mellitus with diabetic autonomic (poly)neuropathy; E11.51 Type 2 diabetes mellitus with diabetic peripheral angiopathy without gangrene; Y83.5 Amputation of limb(s) as the cause of abnormal reaction of the patient, or of later complication, without mention of misadventure at the time of the procedure; E11.69 Type 2 diabetes mellitus with other specified complication; E66.9 Obesity, unspecified; H54.8 Legal blindness, as defined in USA; I50.9 Heart failure, unspecified; K31.84 Gastroparesis; Z68.31 Body mass index [BMI] 31.0-31.9, adult; Z99.2 Dependence on renal dialysis; Z79.4 Long term (current) use of insulin; Z89.511 Acquired absence of right leg below knee; Z89.612 Acquired absence of left leg above knee; Z09 Encounter for follow-up examination after completed treatment for conditions other than malignant neoplasm; Z76.5 Malingerer [conscious simulation]; Z89.611 Acquired absence of right leg above knee; Z88.1 Allergy status to other antibiotic agents; Z88.8 Allergy status to other drugs, medicaments and biological substances; Z79.2 Long term (current) use of antibiotics; Z79.899 Other long term (current) drug therapy
CPT/HCPCS: 36415; 80048; 80053; 80202; 82040; 82550; 82553; 82962; 83036; 83605; 83735; 84100; 84134; 84145; 84484; 85025; 99285; C9113; J1170; J1200; J1644; J1650; J1815; J2185; J2270; J2405; J3370; J3490; J7040

== ENCOUNTER 2020-03-17 16:44 | Inpatient (IN) | payer MEDICARE, MEDICAID ==
[~2020-03-17] VITALS: Ht 142.2 cm; Wt 93.4 kg
[2020-03-17] MEDS ORDERED: SODIUM CHLORIDE 0.9% 1000ML BAG (SEPSIS BOLUS) IV ONE (18:00)
[2020-03-17] MEDS ORDERED: MIDODRINE HCL 5MG TABLET PO ONE (18:30)
[2020-03-17] MEDS ORDERED: DIPHENHYDRAMINE 50MG/ML VIAL IV ONE (18:30)
[2020-03-17 19:14] LABS: BASOPHILS % 0.7 % (0.0-2.0); EOSINOPHILS % 2.2 % (0.0-5.0); HEMATOCRIT. 36.3 % (36.0-48.0); HEMOGLOBIN. 11.5 g/dL (12.0-16.0); LYMPHOCYTES % 15.7 % (20.0-50.0); MEAN CORPUSCULAR HEMOGLOBIN 28.5 pg (28.0-32.0); MEAN CORPUSCULAR VOLUME 89.6 fL (81.0-99.0); MEAN PLATELET VOLUME 7.5 fl (7.4-10.4); MONOCYTES % 7.1 % (2.0-8.0); NEUTROPHILS % 74.3 % (40.0-76.0); PLATELET 337 x1000/uL (130-400); RED BLOOD CELL COUNT 4.05 mill/uL (4.2-5.4); RED CELL DISTRIBUTION WIDTH 17.1 % (11.6-14.6)
[2020-03-17 19:25] LABS: INR 1.1; PROTHROMBIN TIME 11.1 sec (9.6-11.0)
[2020-03-17 19:35] LABS: CHLORIDE 97 mEq/L (98-107)
[2020-03-17 21:58] VITALS: BP 110/31
[2020-03-17] MEDS ORDERED: LORAZEPAM 0.5MG TABLET PO PRN (22:00)
[2020-03-17] MEDS ORDERED: ONDANSETRON HCL 4MG/2ML INJ IV PRN (22:00)
[2020-03-17] MEDS ORDERED: CLONIDINE 0.1MG TABLET PO PRN (22:00)
[2020-03-17] MEDS ORDERED: ZOLPIDEM TARTRATE 5MG TABLET PO PRN (22:00)
[2020-03-17] MEDS ORDERED: IPRATROPIUM/ALBUTEROL 0.5-3(2.5)MG/3ML NEB NEB PRN (22:00)
[2020-03-17] MEDS ORDERED: ACETAMINOPHEN 325MG TABLET PO PRN ×2 (22:00)
[2020-03-17] MEDS ORDERED: GUAIFENESIN 200MG/10ML SUGAR FREE UDC PO PRN (22:00)
[2020-03-17] MEDS ORDERED: MAGNESIUM/ALUMINUM HYDROXIDE/SIMETHICONE 30ML UDC PO PRN (22:00)
[2020-03-17] MEDS ORDERED: DEXTROSE 50% WATER 50ML SYRINGE IV PRN (22:00)
[2020-03-17] MEDS ORDERED: HYDROMORPHONE HCL 4MG TABLET PO PRN (23:45)
[2020-03-18] VITALS (8 sets, daily range): BP systolic 18–120; BP diastolic 41–119
[2020-03-18] MEDS: DIPHENHYDRAMINE 50MG/ML VIAL IV PRN ×4 (00:14→17:09)
[2020-03-18] MEDS: SODIUM CHLORIDE 0.9% INJ 3ML FLUSH IVF SCH ×3 (00:14→15:24)
[2020-03-18] MEDS: PANTOPRAZOLE 40MG DR TABLET PO SCH ×2 (00:21→06:19)
[2020-03-18] MEDS: HYDROMORPHONE HCL 2MG TABLET PO PRN ×3 (02:03→17:03)
[2020-03-18] MEDS: INSULIN LISPRO 100 UNITS/ML SUBCUT SCH ×3 (06:54→17:04)
[2020-03-18] MEDS ORDERED: PANTOPRAZOLE 40MG DR TABLET PO SCH (07:10)
[2020-03-18] MEDS: BLOOD SUGAR DIAGNOSTIC STRIP TEST SCH ×3 (07:18→17:06)
[2020-03-18] MEDS: CALCIUM ACETATE 667MG CAPSULE PO SCH ×3 (08:22→17:08)
[2020-03-18] MEDS ORDERED: ASPIRIN 81MG EC TABLET PO SCH (09:00)
[2020-03-18] MEDS ORDERED: METOPROLOL TARTRATE 25MG TABLET PO SCH (09:00)
[2020-03-18] MEDS ORDERED: CINACALCET HCL 60MG TABLET PO SCH (09:00)
[2020-03-18] MEDS ORDERED: CLOPIDOGREL 75MG TABLET PO SCH ×2 (09:00)
[2020-03-18] MEDS ORDERED: ENOXAPARIN 30MG/0.3ML SYR SUBCUT SCH (09:00)
[2020-03-18] MEDS ORDERED: FOLIC ACID/VITAMIN B COMP W-C TABLET PO SCH (09:00)
[2020-03-18] MEDS ORDERED: INSULIN GLARGINE UD 100 UNITS/ML SYR SUBCUT SCH (10:00)
[2020-03-18] MEDS ORDERED: ATORVASTATIN CALCIUM 40MG TABLET PO SCH (21:00)
== END 2020-03-18 19:30 | disposition home or self-care (01) | DRG 312 ==
LOC: ER 16:44 → 8WST 19:27 → EDBEDREQ 19:32 → EDBEDREQSVC 19:32 → EDBEDREQTM 19:32 → ENRESERV 21:07
PROVIDERS: ADMIT Internal Medicine; ATTEND Internal Medicine
DX: I95.2 Hypotension due to drugs (principal); N18.6 End stage renal disease; I13.2 Hypertensive heart and chronic kidney disease with heart failure and with stage 5 chronic kidney disease, or end stage renal disease; Z68.42 Body mass index [BMI] 45.0-49.9, adult; E11.22 Type 2 diabetes mellitus with diabetic chronic kidney disease; E11.40 Type 2 diabetes mellitus with diabetic neuropathy, unspecified; E11.51 Type 2 diabetes mellitus with diabetic peripheral angiopathy without gangrene; G89.4 Chronic pain syndrome; H54.7 Unspecified visual loss; I50.9 Heart failure, unspecified; T50.905A Adverse effect of unspecified drugs, medicaments and biological substances, initial encounter; K21.9 Gastro-esophageal reflux disease without esophagitis; L29.9 Pruritus, unspecified; E66.9 Obesity, unspecified; Z82.49 Family history of ischemic heart disease and other diseases of the circulatory system; Z83.3 Family history of diabetes mellitus; Z89.511 Acquired absence of right leg below knee; Z89.612 Acquired absence of left leg above knee; Z99.2 Dependence on renal dialysis; Z88.1 Allergy status to other antibiotic agents; Z88.0 Allergy status to penicillin; Z88.2 Allergy status to sulfonamides; Z88.8 Allergy status to other drugs, medicaments and biological substances; Y92.89 Other specified places as the place of occurrence of the external cause; Z79.899 Other long term (current) drug therapy
CPT/HCPCS: 36415; 71045; 80053; 82962; 83036; 83605; 84145; 84484; 85025; 93005; 99285; J1200; J1650; J1815; J7030

== ENCOUNTER 2020-05-16 02:09 | Emergency (ER) | payer MEDICARE, MEDICAID ==
[~2020-05-16] VITALS: Ht 162.6 cm; Wt 82.0 kg
[~2020-05-16 02:09] MED LIST changes: -ASPI-1158 PO; +ASPI-1406 PO; +CLOP-31 PO; -CLOP75TA4 PO
[2020-05-16] MEDS ORDERED: ASPIRIN 81MG TABLET PO ONE (03:00)
[2020-05-16 04:06] LABS: CHLORIDE 92 mEq/L (98-107)
[2020-05-16 04:31] LABS: BASOPHILS % 0.4 % (0.0-2.0); EOSINOPHILS % 2.6 % (0.0-5.0); HEMATOCRIT. 35.3 % (36.0-48.0); HEMOGLOBIN. 11.4 g/dL (12.0-16.0); LYMPHOCYTES % 10.5 % (20.0-50.0); MEAN CORPUSCULAR HEMOGLOBIN 27.9 pg (28.0-32.0); MEAN CORPUSCULAR VOLUME 86.3 fL (81.0-99.0); MEAN PLATELET VOLUME 7.3 fl (7.4-10.4); MONOCYTES % 6.5 % (2.0-8.0); PLATELET 357 x1000/uL (130-400); RED BLOOD CELL COUNT 4.09 mill/uL (4.2-5.4); RED CELL DISTRIBUTION WIDTH 16.5 % (11.6-14.6)
[2020-05-16 08:20] VITALS: BP 120/63
== END 2020-05-16 08:20 | disposition home or self-care (01) ==
LOC: ER 02:51
DX: G89.29 Other chronic pain (principal); M79.10 Myalgia, unspecified site; I13.2 Hypertensive heart and chronic kidney disease with heart failure and with stage 5 chronic kidney disease, or end stage renal disease; E11.22 Type 2 diabetes mellitus with diabetic chronic kidney disease; I50.9 Heart failure, unspecified; N18.6 End stage renal disease; H54.8 Legal blindness, as defined in USA; Z91.013 Allergy to seafood; Z99.2 Dependence on renal dialysis; Z79.4 Long term (current) use of insulin; Z88.2 Allergy status to sulfonamides; Z88.6 Allergy status to analgesic agent; Z88.0 Allergy status to penicillin; Z89.512 Acquired absence of left leg below knee; Z89.511 Acquired absence of right leg below knee
CPT/HCPCS: 36415; 71045; 80053; 83880; 84484; 85025; 93005; 99285

== ENCOUNTER 2020-05-22 07:11 | Emergency (ER) | payer MEDICARE, MEDICAID ==
[~2020-05-22] VITALS: Ht 167.6 cm; Wt 90.0 kg
[2020-05-22] VITALS (16 sets, daily range): BP systolic 104–168; BP diastolic 40–113
[2020-05-22 09:18] LABS: PARTIAL THROMBOPLASTIN TIME 28.2 sec (23.4-31.0)
[2020-05-22] MEDS ORDERED: MORPHINE SULFATE 2 MG/ML CPJ (NOT FOR IM USE) IV SCH (10:30)
[2020-05-22 11:35] LABS: BASOPHILS % 0.7 % (0.0-2.0); EOSINOPHILS % 2.9 % (0.0-5.0); HEMOGLOBIN. 10.7 g/dL (12.0-16.0); LYMPHOCYTES % 14.9 % (20.0-50.0); MEAN CORPUSCULAR HEMOGLOBIN 27.4 pg (28.0-32.0); MEAN CORPUSCULAR VOLUME 87.1 fL (81.0-99.0); MEAN PLATELET VOLUME 7.4 fl (7.4-10.4); MONOCYTES % 8.9 % (2.0-8.0); NEUTROPHILS % 72.6 % (40.0-76.0); PLATELET 342 x1000/uL (130-400); RED BLOOD CELL COUNT 3.91 mill/uL (4.2-5.4); RED CELL DISTRIBUTION WIDTH 16.8 % (11.6-14.6)
[2020-05-22] MEDS ORDERED: MORPHINE SULFATE 4 MG/ML CPJ (NOT FOR IM USE) IV ONE (11:45)
[2020-05-22] MEDS ORDERED: SODIUM BICARBONATE 4% (2.4MEQ) 5ML VIAL IV ONE (12:53)
[2020-05-22] MEDS ORDERED: LIDOCAINE HCL 1% 20ML VIAL (Pyxis) INJ ONE (12:54)
[2020-05-22] MEDS ORDERED: CLINDAMYCIN 600MG PREMIX 50 ML IV SCH (13:00)
[2020-05-22] MEDS ORDERED: CLINDAMYCIN 600 MG in DEXTROSE 5% WATER 50 ML IV ONE (13:00)
[2020-05-22] MEDS ORDERED: DIPHENHYDRAMINE 50MG/ML VIAL ONE (13:13)
[2020-05-22] MEDS ORDERED: DIPHENHYDRAMINE 50MG/ML VIAL IV ONE (13:15)
[2020-05-22] MEDS ORDERED: FENTANYL CITRATE/PF 50MCG/ML 2ML VIAL ONE (13:22)
[2020-05-22] MEDS ORDERED: FENTANYL CITRATE/PF 50MCG/ML 2ML VIAL IV SCH (13:30)
[2020-05-22] MEDS ORDERED: DIPHENHYDRAMINE 50MG/ML VIAL IV SCH (13:30)
== END 2020-05-22 18:00 | disposition home or self-care (01) ==
LOC: ER 07:11
DX: T83.098A Other mechanical complication of other urinary catheter, initial encounter (principal); I13.2 Hypertensive heart and chronic kidney disease with heart failure and with stage 5 chronic kidney disease, or end stage renal disease; E11.22 Type 2 diabetes mellitus with diabetic chronic kidney disease; N18.6 End stage renal disease; I50.89 Other heart failure; D64.9 Anemia, unspecified; Z99.2 Dependence on renal dialysis; Z79.4 Long term (current) use of insulin; Z79.899 Other long term (current) drug therapy; Z88.0 Allergy status to penicillin; Z20.822 Contact with and (suspected) exposure to COVID-19; X58.XXXA Exposure to other specified factors, initial encounter
CPT/HCPCS: 36415; 36581; 71045; 77001; 80048; 85025; 85610; 85730; 87426; 96365; 96375; 96376; 99284; C1750; C1769; J1200; J1642; J2270; J3010; J3490; 99152; 99153; G0500